=== PATIENT | male | born 1945 | race Caucasian/White ===

== ENCOUNTER 2019-03-29 10:43 | Inpatient (IN) | payer MEDICARE, OTHER ==
--- NOTE | 2019-03-29 10:50 | ED ---
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 The patient had a blood transfusion yesterday and states he went to the bathroom this morning with blood in his stool. The patient has myelodisplasia and they see Dr. Schwartz, hematology. The patient has had several blood transfusions in the last three weeks. The patient states he feels weak and lightheaded. He denies abdominal pain and nausea. His last colonoscopy was in September and they found hemorrhoids and a possible AVM. Medications reviewed. Allergies noted. - History of Current Complaint Stated Complaint: LOWER GI BLEED PER EMS Hx Obtained From: Patient Onset/Duration: Started Minutes Ago Associated Signs and Symptoms: Positive: Blood w/Stool - Allergy/Home Medications Allergies/Adverse Reactions: Allergies Allergy/AdvReac Type Severity Reaction Status Date / Time No Known Allergies Allergy Verified 02/08/15 09:50 PMH/Surg Hx/FS Hx/Imm Hx Endocrine/Hematology History: Reports: Hx Diabetes Cardiovascular History: Reports: Hx Coronary Artery Disease - 4 vessel CABG done 1999 [facility], Hx Hypercholesterolemia, Hx Hypertension, Hx Peripheral Vascular Disease - vascular stents, bypass bilateral lower legs Respiratory History: Reports: Hx Chronic Obstructive Pulmonary Disease (COPD) GI History: Reports: Hx Gastroesophageal Reflux Disease History: Reports: Other Problems/Disorders - Catcholamine secreting tumors pheochromocytoma Musculoskeletal History: Reports: Hx Back Problems Sensory History: Reports: Hx Contacts or Glasses, 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 Bypass Right leg 02/2014 [facility]. Back surgery 2011 [facility]. Balloon angioplasty bilateral legs 2000 [facility]. 4 vessel CABG 1999 [facility]. Removal cyst from back, [facility]. Pilonidal cystectomy [facility]. Shrapnel injury to heart in 1966 Hx Anesthesia Reactions: No - Family History Known Family History: Positive: Non-Contributory - Social History Alcohol Use: None Substance Use Type: Reports: None Smoking Status (MU): Light Every Day Tobacco Smoker Type: Cigarettes Amount Used/How Often: 1/2 ppd Length of Time of Smoking/Using Tobacco: 50 yrs Have You Smoked in the Last Year: Yes Review of Systems Positive: Other - Rectal Bleed. Negative: Abdominal Pain, Nausea Neurological: Other - Light-headedness Positive: Weakness All Other Systems Reviewed And Are Negative: Yes Physical Exam - Summary Physical Exam Summary: Constitutional: Well-developed, Well-nourished, Alert. (-) Distressed Skin: Warm, Dry. Pale skin. HENT: Normocephalic; Atraumatic Eyes: Conjunctiva normal Neck: Musculoskeletal ROM normal neck. (-) JVD, (-) Stridor, (-) Tracheal deviation Cardio: Rhythm regular, rate normal, Heart sounds normal; Intact distal pulses; The pedal pulses are 2+ and symmetric. Radial pulses are 2+ and symmetric. (-) Murmur Pulmonary/Chest wall: Effort normal. (-) Respiratory distress, (-) Wheezes, (-) Rales Abd: Soft, (-) tenderness, (-) Distension, (-) Guarding, (-) Rebound Musculoskeletal: (-) Edema Lymph: (-) Cervical adenopathy Neuro: Alert, Oriented x3. Ambulated well in the room. Psych: Mood and affect Normal Rectal: Melena. Triage Information Reviewed: Yes Vital Signs On Initial Exam: Temp Pulse Resp BP Pulse Ox 98.7 F 66 13 124/84 99 03/29/19 11:04 03/29/19 11:04 03/29/19 11:04 03/29/19 11:04 03/29/19 11:04 Vital Signs Reviewed: Yes Diagnostics - Laboratory Result Diagrams: 03/29/19 11:19 03/29/19 11:19 Lab Statement: Any lab studies that have been ordered have been reviewed, and results considered in the medical decision making process. - EKG 1111 Cardiac Rate: NL - 62 BPM EKG Rhythm: Sinus Rhythm Summary of EKG Findings: Widened QRS, LBBB, No ST segment changes. GIGU Course/Dx - Course Course Of Treatment: Patient is seizure with a GI bleed. Patient has had issues with GI bleeding off and on for the past couple of years. Patient had multiple colostomies and endoscopies which have showed an AVM and hemorrhoids per his . Patient sees Dr. Bernard for his myelodysplasia and received a blood transfer yesterday. Patient's hemoglobin was 8.9 5 days ago prior to his transfusion and is 8.4 today. Patient has melena on his rectal exam. Patient did not receive an infusion here but was admitted for further monitoring and workup even his quantity of melena and his concerning hemoglobin. - Diagnoses Provider Diagnoses: Lower GI bleed, Myelodysplasia (myelodysplastic syndrome), AVM (arteriovenous malformation), Anemia - Physician Notifications Discussed Care Of Patient With: Judson Bernard - GI Time Discussed With Above Provider: 11:34 - States likely not related to myelodisplasia, admit the patient. Instructed by Provider To: Admit As Inpatient Discharge ED - Sign-Out/Discharge Documenting (check all that apply): Patient Departure - Admission to Dr. Brown , Hospitalist Patient Received Moderate/Deep Sedation with Procedure: No - Discharge Plan Condition: Stable Disposition: ADMITTED TO [facility] Referrals: Cali Ochoa MD [Primary Care Provider] - - Billing Disposition and Condition Condition: STABLE Disposition: Admitted to [facility] - Attestation Statements Document Initiated by Kobe: Yes Documenting Laurenibe: Adan Harvey Provider For Whom Kobe is Documenting (Include Credential): David Schmidt MD Scribe Attestation: Adan Gould scribed for David Schmidt MD on 03/29/19 at 1228. Scribe Documentation Reviewed: Yes Provider Attestation: The documentation as recorded by the Adan ward accurately reflects the service I personally performed and the decisions made by me, David Schmidt MD Status of Scribe Document: Viewed
[2019-03-29 11:25] LABS: ABS Basophils 0.1 10^3/ul (0-0.2); ABS Eosinophils 0.2 10^3/ul (0-0.6); ABS Monocytes 0.2 10^3/ul (0-0.8); Hematocrit 25 % (42-52); Hemoglobin 8.4 g/dL (14.0-18.0); Lymphocyte % 10.9 %; Mean Corpuscular HGB Conc 34 g/dL (31-36); Mean Corpuscular Hemoglobin 31 pg (27-31); Mean Corpuscular Volume 93 fL (80-94); Mean Platelet Volume 7.6 fL (7.4-10.4); Platelet Count 205 10^3/uL (150-450); Red Blood Count 2.67 10^6 /uL (4.18-5.48); Red Cell Distribution Width 16 % (10-15); White Blood Count 9.6 10^3/uL (3.5-10.8)
[2019-03-29 11:42] LABS: Albumin 3.4 g/dL (3.2-5.2); Albumin/Globulin Ratio 1.7 (1-3); BUN/Creatinine Ratio 20.7 (8-20); Calcium 8.3 mg/dL (8.6-10.3); EGFR African American 62.7 (>60); EGFR Non-African American 51.8 (>60); Potassium 4.6 mmol/L (3.5-5.0); Total Bilirubin 0.2 mg/dL (0.2-1.0); Total Protein 5.4 g/dL (6.4-8.9)
[2019-03-29 11:44] LABS: Troponin I 0.01 ng/mL (<0.04)
[2019-03-29] MEDS ORDERED: Acetaminophen TAB* 325 MG PO PRN (12:55)
[2019-03-29] MEDS ORDERED: Dextrose 50% VIAL 50 ml IV PUSH PRN (13:00)
--- NOTE | 2019-03-29 16:26 | HP ---
CC: Dr. Ochoa; Dr. Bernard* HISTORY AND PHYSICAL: DATE OF ADMISSION: 03/29/19 PROVIDER: Una Heck NP. PRIMARY CARE PROVIDER: Dr. Ochoa. ATTENDING PHYSICIAN WHILE IN THE HOSPITAL: Dr. Eulalio Brown* (dictated by Una Heck NP). CHIEF COMPLAINT: Rectal bleeding. HISTORY OF PRESENT ILLNESS: Mr. Rosado is a 73-year-old male with a past medical history significant for coronary artery disease, OR, history of gastrointestinal bleeding since 2018, myelodysplastic syndrome, history of ischemic heart disease, angina, and anemia, who presented to the emergency room due to acute rectal bleeding. The patient reports that he is currently followed by Dr. Bernard for myelodysplastic syndrome and that he received a blood transfusion yesterday. He also reports that over the past 2 weeks he has had 2 blood transfusions. He had an iron infusion last and received erythropoietin on Sunday, which he reports he is now receiving twice monthly. The patient reports that he woke this morning and went to use the bathroom, he noted he had a bowel movement x2 with a large amount of dark red to medium red blood and the patient felt lightheaded and dizzy. Due to these symptoms, he presented to the emergency room for further evaluation. While in the emergency room, the patient had routine lab work drawn. He had a rectal exam, in which stool occult was positive for blood. His H and H on arrival was 8.4 and 25. Given his acute bleeding and low H and H, Hospital Medicine was asked to see him in consult for admission. Of note, the patient does report that he had a major GI bleed on 03/04/18. At that time, he was treated [facility]. Due to the anemia at that time had an OR. He recently had a coloscopy in september of this year which showed AVM's and hemorrhoids, no acute bleeding at that time. PAST MEDICAL HISTORY: 1. History of coronary artery disease. 2. History of OR in 2018. 3. History of GI bleed with AVMs. 4. Myelodysplastic Syndrome. 5. Ischemic heart disease. 6. Angina. 7. Diabetes. 8. Anemia. PAST SURGICAL HISTORY: 1. Tailbone cyst removed. 2. Cardiac catheterization in 1998 and 1999. 3. L4-L5 laminectomy. 4. Bypass of the left leg. 5. Stent in the right leg. 6. Shoulder surgery. 7. Open heart surgery. HOME MEDICATIONS: Include: 1. Lantus 20 units at h.s. 2. NovoLog 8 units with meals. 3. MiraLAX 1 to 2 caps p.o. daily. 4. Simethicone 80 mg p.o. daily as needed. 5. Carvedilol 12.5 mg half a tab twice daily. 6. Losartan 50 mg p.o. daily. 7. Aspirin 81 mg p.o. daily. 8. Vitamin D 1000 units p.o. daily. 9. Vitamin B 500 mcg p.o. daily. 10. Isosorbide mononitrate 120 mg p.o. q.p.m. 11. Sertraline 150 mg at h.s. 12. Topiramate 150 mg at h.s. 13. Folic acid 1 mg p.o. daily. 14. Colace/senna 1 tab p.o. daily. 15. Oxycodone 5 mg p.o. q.4 hours as needed. 16. Rabeprazole 20 mg p.o. b.i.d. 17. Nitroglycerin 0.4 sublingual q.5 minutes. 18. Zantac 300 mg as needed. ALLERGIES: NICOTINE PATCH, GEMFIBROZIL, METFORMIN, WELLBUTRIN, ELROY INHIBITORS, ATORVASTATIN, BUPROPION, FAMILY HISTORY: Father with a history of CHF. Brother with diabetes. Brother with lung cancer. Mother with gallbladder cancer. Sister with breast cancer x2 sisters and one with colon cancer. SOCIAL HISTORY: The patient smokes a half a pack per day. Denies any alcohol or illicit drug use. He is . His surrogate decision maker in the event he is unable to make his own decisions is his . He is a full code. REVIEW OF SYSTEMS: He denies any fever or untended weight loss. Denies any chest pain or edema. No hemoptysis or shortness of breath. No cough. He does report lightheaded and feeling dizzy. Denies any nausea or vomiting. He does report diarrhea with dark red blood with bowel movements. Denies any abdominal pain currently. He does report that he has occasional upper abdominal pain with eating. Denies any gross hematuria or dysuria. Denies any focal weakness or sensory loss. No visual complaints, dysphagia, arthralgias, myalgias, rashes , lesions, or open sores. Denies any psychosis or anxiety. PHYSICAL EXAMINATION GENERAL: At this time, Mr. Rosado is a 73-year-old male. He is alert and oriented. He is pale. Resting on the stretcher in the emergency room. He is in no acute distress. VITAL SIGNS: Blood pressure 128/78, heart rate 74, respirations 14, O2 saturation 99%, temperature is 98.7. HEENT: Head is atraumatic, normocephalic. Eyes: EOMs are intact. Sclerae anicteric and not pale. Oral mucosa appeared to be moist. NECK: Supple. LUNGS: Clear to auscultation bilaterally. No wheezes, rales, or rhonchi. CARDIAC: S1, S2. Regular rate and rhythm. No murmurs, rubs, or gallops. ABDOMEN: Soft and nontender. Bowel sounds are present x4. EXTREMITIES: He is able to move all 4 extremities with 5/5 strength. NEUROLOGIC: He is awake, alert, and oriented x3. Speech is clear. Thought process is intact. There is no gross focal deficits. SKIN: Pale, warm, dry. There are no open rashes or lesions. DIAGNOSTIC STUDIES/LAB DATA: WBCs are 9.6, RBCs 2.67, hemoglobin 8.4, hematocrit is 25, platelet count is 205. Sodium 136, potassium 4.6, chloride 111, carbon dioxide is 21, anion gap is 4, BUN is 28, creatinine 1.35, glucose is 200, calcium 8.3. AST 9, ALT 6, alkaline phosphatase 59. Troponin is 0.01 x2. He had an electrocardiogram, which showed sinus rhythm at a rate of 62. He does have flat T-waves in V3, V4, V5, and V6. He does have some peaked Ts in V1 and V2 with T-wave inversion in lead III. No comparison EKGs are available. I have requested records from the [facility] in [place] for prior EKG for comparison. ASSESSMENT AND PLAN: Mr. Rosado is a 73-year-old male with a past medical history significant for coronary artery disease, myocardial infarction, status post open heart surgery, gastrointestinal bleed, mild dysplasia, history of angina and anemia, who presented to the emergency room with rectal bleeding. He will be admitted inpatient for: 1. Lower gastrointestinal bleeding. The patient does have reported dark red blood from the rectum. He did receive 1 unit of packed red blood cells yesterday as an outpatient. At that point, his H and H was 8.9. Today, his hemoglobin and hematocrit are 8.4 and 25. Type and screen. I will hang normal saline at 75 cc per hour. We will repeat H and H q.6 hours. I have consulted Dr. Perez from GI who will see the patient in consultation. I will hold aspirin at this time. Will give blood transfusion for Hgb below 8 given the patients cardiac history. Per the Dr. Key would hgb close to 9 given his history of OR's. Will repeat hemoglobin and hematocrit every 6 hours. 2. Diabetes. He will be placed on fingersticks a.c. and h.s. The patient is n.p.o. at this time. I will place him on a lispro sliding scale. I am going to hold his Lantus at this time as the patient does have n.p.o. status. 3. History of coronary artery disease. I will continue the patient on carvedilol 12.5 half a tablet b.i.d. I am going to hold his losartan due to acute gastrointestinal bleeding and concern for hypotension. Will obtain EKG for comparison from the [facility], as the patient does have T wave depression noted in the v leads and lead I and III with a history of OR x 3 in the past. Troponin are negative at this time. If the EKG does show changes I suspect this are related to demand ischemia from anemia, as the patient is chest pain free and troponins are negative. Should the patient develop chest pain or further EKG changes he would not be a candidate for aspirin d/t acute GI bleeding and would not be a candidate at this time for plavix d/t Lower GI bleeding. 4. History of acid reflux. I will continue on pantoprazole as previously prescribed. 5. Myelodysplastic Syndrome. Patient is follow by Dr. Key from hematology would recommend consult to hematology. ER did discuss this case with Dr. Key who did not feel this was related to his myelodysplasia. 6. Chronic Kidney disease. Patient does have elevated BUN /Creatinine that appear to be a baseline. 7. FEN: He will be n.p.o. 8. Code status: He is a full code. 9. DVT prophylaxis: He will be placed on SCDs as chemical DVT prophylaxis contraindicated at this time as the patient does have acute lower gastrointestinal bleed. TIME SPENT: Time spent on this admission was 60 minutes, greater than half that time was spent at the bedside reviewing events leading thus far to his hospitalization, performing physical exam, and reviewing my plan of care. I have discussed this with my attending Dr. Eulalio Brown; he is in agreement with my plan. UNA HECK, BOILERMAKER FITTER [id number]/[facility] #: [id number] Subsequent EKGs show further ischemic changes - the patient did have 1 episode of abdominal pain for which he reports that he takes nitroglycerin for at home, He took 1 NTG and pain was relieved. I did repeat an EKG which showed further changes in lead I.III and V1-4 and repeat troponin of 0.03 mild increase from 0.01 but still within normal limits. Patient was chest pain free at 2030 when evaluated. The patient H/H has dropped to 7.6/23 So I suspect that the EKG changes can be related to demand ischemia. We will transfuse 2 units of PRBC's. Would recommend consult to cardiology if patient develops further episodes of chest pain. KAREN
[2019-03-29] MEDS ORDERED: Nitroglycerin TAB 0.4 MG* 0.4 MG TAB SL PRN (17:06)
[2019-03-29] MEDS: Insulin LISPRO* 1 UNITS UNIT SUBCUT SCH (17:20)
[2019-03-29] MEDS: Isosorbide Mononitrate ER TAB* 60 MG PO SCH (17:24)
[2019-03-29 18:01] LABS: Hematocrit 23 % (42-52); Hemoglobin 7.6 g/dL (14.0-18.0)
[2019-03-29] MEDS: NS 0.9% 1000 ML** 1,000 ML IV SCH (18:18)
[2019-03-29] MEDS: Topiramate TAB(*) 25 MG PO SCH (21:49)
[2019-03-29] MEDS: Topiramate TAB(*) 100 MG PO SCH (21:49)
[2019-03-29] MEDS: Carvedilol TAB* 6.25 MG PO SCH (21:49)
[2019-03-30 06:48] LABS: Hematocrit 27 % (42-52); Hemoglobin 9.6 g/dL (14.0-18.0)
[2019-03-30] MEDS: Insulin LISPRO* 1 UNITS UNIT SUBCUT SCH ×3 (07:43→17:27)
--- NOTE | 2019-03-30 09:33 | PN ---
Subjective Date of Service: 03/30/19 Interval History: Pt states he is feeling well today. He notes he had BRBPR x2 yesterday a.m. and has had no bleeding or BM since then. He denies melena, abd pain, n/v/. Denies CP, SOB, diaphoresis. He denies dizziness, lightheadedness. He has h/o GI bleeding for the last 1 year. He states he has had approximately 5 colonoscopies since onset of bleeding. He notes last colonoscopy was in October 2018. Objective Active Medications: Acetaminophen (Tylenol Tab*) 650 mg PO Q4H PRN Carvedilol (Coreg Tab*) 12.5 mg PO BID JEANMARIE Dextrose (Dextrose 50% Vial 50 Ml*) 25 ml IV PUSH .FOR FS < 60 - SS PRN Sodium Chloride (Ns 0.9% 1000 Ml) 1,000 mls @ 75 mls/hr IV PER RATE JEANMARIE Insulin Human Lispro (Humalog*) 0 units SUBCUT AC JEANMARIE; Protocol Isosorbide Mononitrate (Imdur Er Tab*) 120 mg PO QPM JEANMARIE Nitroglycerin (Nitroglycerin Tab 0.4 Mg*) 0.4 mg SL Q5M PRN Oxycodone HCl (Roxycodone Tab*) 5 mg PO Q4H PRN Topiramate (Topamax(*)) 100 mg PO BEDTIME JEANMARIE Topiramate (Topamax(*)) 50 mg PO BEDTIME JEANMARIE Vital Signs: Temp Pulse Resp BP Pulse Ox 98.1 F 70 20 156/67 100 03/30/19 03:00 03/30/19 03:00 03/30/19 03:00 03/30/19 03:00 03/30/19 03:00 Oxygen Devices in Use Now: None Appearance: Pt is sitting up in bed. He is in no acute distress, appears well. Cooperative, appropriate Eyes: No Scleral Icterus, PERRLA Ears/Nose/Mouth/Throat: NL Teeth, Lips, Gums, Clear Oropharnyx, Mucous Membranes Moist Neck: NL Appearance and Movements; NL JVP, Trachea Midline Respiratory: Symmetrical Chest Expansion and Respiratory Effort, Clear to Auscultation Cardiovascular: NL Sounds; No Murmurs; No JVD, RRR, No Edema Abdominal: NL Sounds; No Tenderness; No Distention, No Hepatosplenomegaly Extremities: No Edema, No Clubbing, Cyanosis Neurological: Alert and Oriented x 3 Result Diagrams: 03/30/19 06:00 03/30/19 09:45 Microbiology and Other Data: Microbiology 03/29/19 11:25 Stool Occult Blood (IMTIAZ) - Final Stool Assess/Plan/Problems-Billing Assessment: 73yom PMHx CAD, GIB with AVM, myelodysplasia, diabetes, ischemic heart disease, anemia presents with lower GI bleed, EKG changes. - Patient Problems (1) Lower GI bleed Comment: -BRBPR x2 yesterday, no BM since. Has 1 year h/o GIB with multiple colonoscopies. -Records obtained: last colonoscopy October 2017 revealed AVM, hemorrhoids -2U PRBC given; hgb 9.6 currently -GI consulted; thank you for recommendations -Will continue with conservative treatment and monitor for need for transfusion -Continue H/H q6h (2) Acute electrocardiogram changes Comment: -Pt denies CP; troponins negative x3, but slight increase with 3rd trop -ST changes in V2-V6; T inversion in III, aVF compared to initial ER EKG -Suspect that this may be related to demand -Repeat EKG is improved, resembles initial EKG. No other comparisons available. -Repeat troponin WNL (3) YESSENIA (acute kidney injury) Comment: -Resolved -Cr WNL today -It is likely that this was due to decreased kidney perfusion in light of anemia -Will continue to monitor (4) Diabetes mellitus Comment: -Consistent carb -Will add Glargine 15U bedtime (home dose 20U bedtime) -Continue lispro ss, FS ACHS (5) CAD (coronary artery disease) Comment: -Continue carvedilol -Holding losartan, aspirin (6) GERD (gastroesophageal reflux disease) Comment: -Pantoprazole 40 daily (7) Myelodysplasia (myelodysplastic syndrome) Comment: -ER discussed case with Dr. Bernard, who didn't feel this related to myelodysplase -Outpatient plan is weekly CBC, Fe and transfuse as necessary for hgb<9, low iron -Continue supportive care (8) DVT prophylaxis Comment: -Hold in light of GIB -SCDs (9) Full code status Status and Disposition: Inpatient. Discharge when stable.
--- NOTE | 2019-03-30 09:44 | CONS ---
CC: Dr. Ochoa at the [facility]* CONSULTATION REPORT: DATE OF CONSULT: 03/30/19 REQUESTING PROVIDER: Una Heck NP INDICATION: Rectal bleeding. NARRATIVE: Mr. Rosado is a very pleasant 73-year-old gentleman, well known to myself; I take care of both his and his son. He has a history of coronary artery disease, remote history of an AL, myelodysplastic syndrome, history of GI bleeding beginning in 2018 who states that yesterday morning he awoke and had a bowel movement, it was very dark red-maroon in color. He denied any abdominal pain, no nausea, no vomiting. No fever, chills, or cramps. He states that he has seen blood in the past, more often than not it is bright red, sometimes it is darker. He does have a history of myelodysplastic syndrome, thus he is receiving blood transfusions and iron infusions. He has also been getting erythropoietin. He again denies any current dizziness, but he states that he did feel a little dizzy yesterday after his bowel movement. He then presented to the emergency room. Over the past 24 hours, he has not had any further bowel movements and no pain over the past 24 hours. Of note, by report, he did have a colonoscopy in September of this year, at which time an AVM was noted. He has also had multiple colonoscopies prior to that. There are records showing at least 2 colonoscopies in 2017 with multiple polypectomies. Currently, he is feeling well, he is hungry, denies any pain and again no bowel movements in 24 hours. PAST MEDICAL HISTORY: Significant for coronary artery disease, AL, history of anemia, ischemic heart disease, myelodysplastic syndrome, diabetes. PAST SURGICAL HISTORY: Surgeries include coronary bypass surgery, laminectomy. MEDICATIONS: At home include: 1. Nitroglycerin. 2. Zantac. 3. Aciphex. 4. Oxycodone. 5. Sertraline. 6. Aspirin 81 mg. 7. Carvedilol. 8. Simethicone. 9. Insulin plus Lantus and NovoLog. ALLERGIES: To WELLBUTRIN, METFORMIN, ELROY INHIBITORS, ATORVASTATIN. FAMILY HISTORY: Diabetes, coronary artery disease, lung cancer, gallbladder cancer, breast cancer, colon cancer. SOCIAL HISTORY: He continues to smoke tobacco, I counseled him against this. No alcohol. No IV drug use. REVIEW OF SYSTEMS: Other than that mentioned in the HPI, the 12 systems were reviewed and were negative. PHYSICAL EXAMINATION: Temperature is 98.1, blood pressure is 136/67, pulse is 70, respiratory rate of 20, O2 sat is 100% on room air. General: Well- appearing male; lying flat in bed. Alert, oriented, pleasant; fluent. HEENT: Mucous membranes are moist without lesions, ulcers, or exudate. Neck is supple. Trachea is midline. Head is normocephalic, atraumatic. Heart: Regular rate and rhythm. No murmurs, rubs, or gallops. Lungs: Clear to auscultation bilaterally. No wheezes, rales, or rhonchi. Abdomen: Mildly obese. Positive bowel sounds. Soft, nontender, nondistended. No hepatosplenomegaly, masses, rebound, or guarding. Skin is warm and dry. DIAGNOSTIC STUDIES/LAB DATA: Of note, white count is 9.6; hemoglobin initially was 8.4, fell to 7.6, now it is up to 9.6 after 2 units of blood; platelet count of 205. BUN is 28, creatinine is 1.35. AST and ALT are both low at 9 and 6. Troponin is 0.03. Albumin is 3.4. ASSESSMENT AND PLAN: This is a very pleasant 73-year-old gentleman with a history of myelodysplastic syndrome and colonic arteriovenous malformations, who presents with lower gastrointestinal bleed. He has received blood overnight. At this point, things seem to be stable, he has not had a bowel movement in 24 hours, which usually means or can sometimes mean the bleeding has stopped. At this point, he is stable. Most likely, the bleeding is coming from the colonic arteriovenous malformations. I would recommend we [facility] and [facility] If he does not continue with any bleeding , I do not think we need to perform a colonoscopy at this point. As long as his hemoglobin remained stable and he does not pass any further blood, I think we could probably hold off on a colonoscopy as his last one was just in September and he has had multiple colonoscopies prior to that. This does not appear to be an upper gastrointestinal bleed at this point. I would recommend we feed him and we will continue to follow along. [id number]/[facility] #: [id number] [facility]
[2019-03-30] MEDS: Carvedilol TAB* 6.25 MG PO SCH ×2 (09:48→19:55)
[2019-03-30 10:09] LABS: INR 1.01 (0.82-1.09)
[2019-03-30 10:17] LABS: Calcium 8.1 mg/dL (8.6-10.3); Potassium 3.8 mmol/L (3.5-5.0)
[2019-03-30 10:23] LABS: BUN/Creatinine Ratio 25.7 (8-20); EGFR African American 83.8 (>60); EGFR Non-African American 69.2 (>60)
[2019-03-30] MEDS: Pantoprazole TAB * 40 MG TAB PO SCH (12:14)
[2019-03-30] MEDS: Isosorbide Mononitrate ER TAB* 60 MG PO SCH (17:27)
[2019-03-30] MEDS: NS 0.9% 1000 ML** 1,000 ML IV SCH (19:51)
[2019-03-30] MEDS: Topiramate TAB(*) 100 MG PO SCH (19:55)
[2019-03-30] MEDS: Topiramate TAB(*) 25 MG PO SCH (19:55)
[2019-03-30] MEDS: Insulin GLARGINE(*) 1 UNITS UNIT SUBCUT SCH (20:10)
[2019-03-30] MEDS: oxyCODONE TAB* 5 MG TAB PO PRN (20:20)
[2019-03-30 20:55] LABS: Hematocrit 27 % (42-52); Hemoglobin 9.2 g/dL (14.0-18.0)
[2019-03-30 22:26] LABS: ABS Basophils 0.1 10^3/ul (0-0.2); ABS Eosinophils 0.3 10^3/ul (0-0.6); ABS Lymphocytes 1.3 10^3/ul (1.0-4.8); ABS Monocytes 0.4 10^3/ul (0-0.8); ABS Neutrophils 4.5 10^3/ul (1.5-7.7); Lymphocyte % 19.4 %; Mean Corpuscular HGB Conc 34 g/dL (31-36); Mean Corpuscular Hemoglobin 30 pg (27-31); Mean Corpuscular Volume 89 fL (80-94); Mean Platelet Volume 8.2 fL (7.4-10.4); Nucleated Red Blood Cells % 0.1; Platelet Count 164 10^3/uL (150-450); Red Blood Count 3.04 10^6 /uL (4.18-5.48); Red Cell Distribution Width 16 % (10-15); White Blood Count 6.5 10^3/uL (3.5-10.8)
[2019-03-31 01:08] LABS: Hematocrit 25 % (42-52); Hemoglobin 8.6 g/dL (14.0-18.0)
[2019-03-31 05:59] LABS: Hematocrit 25 % (42-52); Hemoglobin 8.3 g/dL (14.0-18.0)
[2019-03-31] MEDS: Insulin LISPRO* 1 UNITS UNIT SUBCUT SCH ×3 (07:22→17:03)
[2019-03-31] MEDS: Carvedilol TAB* 6.25 MG PO SCH ×2 (09:09→19:47)
[2019-03-31] MEDS: oxyCODONE TAB* 5 MG TAB PO PRN ×2 (09:09→22:00)
[2019-03-31] MEDS: Pantoprazole TAB * 40 MG TAB PO SCH (09:09)
[2019-03-31] MEDS: NS 0.9% 1000 ML** 1,000 ML IV SCH ×2 (09:42→23:24)
[2019-03-31 12:18] LABS: Hematocrit 26 % (42-52); Hemoglobin 8.9 g/dL (14.0-18.0)
--- NOTE | 2019-03-31 14:02 | PN ---
Subjective Date of Service: 03/31/19 Interval History: Patient seen and examined. No acute overnight events. Patient denies chest pain , no abdominal pain, no SOB or palpitations. No bloody BMs since day of admission, but he states he does feel like he needs to have a BM this morning. No fevers or chills. No further complaints. Objective Active Medications: Acetaminophen (Tylenol Tab*) 650 mg PO Q4H PRN PRN Reason: MILD PAIN or TEMP > 100.4 Carvedilol (Coreg Tab*) 12.5 mg PO BID [facility] Last Admin: 03/31/19 09:09 Dose: 12.5 mg Dextrose (Dextrose 50% Vial 50 Ml*) 25 ml IV PUSH .FOR FS < 60 - SS PRN PRN Reason: FS < 60 Sodium Chloride (Ns 0.9% 1000 Ml) 1,000 mls @ 75 mls/hr IV PER RATE [facility] Last Admin: 03/31/19 09:42 Dose: 75 mls/hr Insulin Glargine (Lantus(*)) 15 units SUBCUT Q24H [facility] Last Admin: 03/30/19 20:10 Dose: 15 unit Insulin Human Lispro (Humalog*) 0 units SUBCUT AC [facility]; Protocol Last Admin: 03/31/19 12:31 Dose: Not Given Isosorbide Mononitrate (Imdur Er Tab*) 120 mg PO QPM [facility] Last Admin: 03/30/19 17:27 Dose: 120 mg Nitroglycerin (Nitroglycerin Tab 0.4 Mg*) 0.4 mg SL Q5M PRN PRN Reason: epigastric/ chest pain Last Admin: 03/29/19 17:25 Dose: 0.4 mg Oxycodone HCl (Roxycodone Tab*) 5 mg PO Q4H PRN PRN Reason: PAIN Last Admin: 03/31/19 09:09 Dose: 5 mg Pantoprazole Sodium (Protonix Tab*) 40 mg PO DAILY [facility] Last Admin: 03/31/19 09:09 Dose: 40 mg Topiramate (Topamax(*)) 100 mg PO BEDTIME [facility] Last Admin: 03/30/19 19:55 Dose: 100 mg Topiramate (Topamax(*)) 50 mg PO BEDTIME [facility] Last Admin: 03/30/19 19:55 Dose: 50 mg Vital Signs - 8 hr 03/31/19 03/31/19 03/31/19 07:33 08:00 09:09 Temperature 97.8 F Pulse Rate 50 Respiratory 16 16 18 Rate Blood Pressure 141/53 (mmHg) O2 Sat by Pulse 100 Oximetry 03/31/19 03/31/19 11:09 11:34 Temperature 99.8 F Pulse Rate 52 Respiratory 18 18 Rate Blood Pressure 158/60 (mmHg) O2 Sat by Pulse 100 Oximetry Oxygen Devices in Use Now: None Appearance: alert, NAD Eyes: No Scleral Icterus, PERRLA Ears/Nose/Mouth/Throat: NL Teeth, Lips, Gums, Mucous Membranes Moist Neck: NL Appearance and Movements; NL JVP, Trachea Midline Respiratory: Symmetrical Chest Expansion and Respiratory Effort, Clear to Auscultation Cardiovascular: NL Sounds; No Murmurs; No JVD, RRR, No Edema Abdominal: NL Sounds; No Tenderness; No Distention, No Hepatosplenomegaly Extremities: No Edema, No Clubbing, Cyanosis Skin: No Rash or Ulcers Neurological: Alert and Oriented x 3 Nutrition: Taking PO's Result Diagrams: 03/31/19 12:03 03/30/19 09:45 Microbiology and Other Data: Microbiology 03/29/19 11:25 Stool Occult Blood (IMTIAZ) - Final Stool Assess/Plan/Problems-Billing Assessment: 73yom PMHx CAD, GIB with AVM, myelodysplasia, diabetes, ischemic heart disease, anemia presents with lower GI bleed, EKG changes. - Patient Problems (1) Lower GI bleed Current Visit: Yes Status: Acute Code(s): K92.2 - GASTROINTESTINAL HEMORRHAGE, UNSPECIFIED SNOMED Code(s): 26058654 Comment: - BRBPR x2 yesterday, no BM since. Has 1 year h/o GIB with multiple colonoscopies. - Records obtained: last colonoscopy October 2017 revealed AVM, likely source - 2U PRBC given; H&H stable since yesterday - GI consult appreciated, no indication for immediate colonoscopy, continue to monitor for further bloody BMs and H&H which are both stable - Goal HgB>9 per heme-onc given myelodysplastic syndrome, currently 8.9, may need additioal unit of packed cells, will re-eval at next lab draw (2) YESSENIA (acute kidney injury) Current Visit: Yes Code(s): N17.9 - ACUTE KIDNEY FAILURE, UNSPECIFIED SNOMED Code(s): 95587155 Comment: - Resolved, likely 2/2 decreased renal perfusion in light of acute blood loss anemia (3) Acute electrocardiogram changes Code(s): R94.31 - ABNORMAL ELECTROCARDIOGRAM [ECG] [EKG] SNOMED Code(s): 247004924 Comment: - Pt denies CP; troponins negative x3, but slight increase with 3rd trop; patient remains asymptomatic with no anginal equvalents - ST changes in V2-V6; T inversion in III, aVF compared to initial ER EKG - Suspect that this may be related to demand 2/2 acute blood loss - Repeat EKG is improved, resembles initial EKG. No other comparisons available. - Repeat troponin WNL (4) CAD (coronary artery disease) Code(s): I25.10 - ATHSCL HEART DISEASE OF [place] CORONARY ARTERY W/O ANG PCTRS SNOMED Code(s): 65288305 Comment: - Continue carvedilol - Holding losartan, aspirin (5) Diabetes mellitus Code(s): E11.9 - TYPE 2 DIABETES MELLITUS WITHOUT COMPLICATIONS SNOMED Code(s) : 74920772 Comment: - Consistent carb - Will add Glargine 15U bedtime (home dose 20U bedtime) - Continue lispro ss, FS ACHS (6) GERD (gastroesophageal reflux disease) Code(s): K21.9 - GASTRO-ESOPHAGEAL REFLUX DISEASE WITHOUT ESOPHAGITIS SNOMED Code(s): 893810987 Comment: - Pantoprazole 40 daily (7) Myelodysplasia (myelodysplastic syndrome) Code(s): D46.9 - MYELODYSPLASTIC SYNDROME, UNSPECIFIED SNOMED Code(s): 057846090 Comment: - Outpatient plan is weekly CBC, Fe and transfuse as necessary for hgb<9, low iron - Continue supportive care (8) DVT prophylaxis Code(s): Z29.9 - ENCOUNTER FOR PROPHYLACTIC MEASURES, UNSPECIFIED SNOMED Code( s): 169460196 Comment: - SCDs only, high risk in presence of GIB (9) Full code status Code(s): Z78.9 - OTHER SPECIFIED HEALTH STATUS SNOMED Code(s): 209784464 Status and Disposition: Inpatient. Discharge when stable.
--- NOTE | 2019-03-31 15:38 | PN ---
Progress Note - Progress Note Date of Service: 03/31/19 Note: pt seen, examined and 45 d/w ; feels weak, otherwise fine, no bm x 48hrs, no abd pain, no bleeding, s/p 2U on Sunday VS; 99.8, 158/60, 52, 18, 100% nad, alert, pale +bs, obese, soft Hgb8.9,<-----8.3,8.6,9.2 kirk AVMs with rectal bleeding; bleeding seems to have stopped (no bm x 48hrs); continue to monitor bms, hgb; if stable, ?dc in am >45 spend talking with Prosper Perez MD [facility]
[2019-03-31] MEDS: Isosorbide Mononitrate ER TAB* 60 MG PO SCH (17:16)
[2019-03-31] MEDS: Topiramate TAB(*) 25 MG PO SCH (19:49)
[2019-03-31] MEDS: Topiramate TAB(*) 100 MG PO SCH (19:50)
[2019-03-31] MEDS: Insulin GLARGINE(*) 1 UNITS UNIT SUBCUT SCH (21:20)
[2019-03-31] MEDS: Docusate CAP* 100 MG PO SCH (21:20)
[2019-03-31] MEDS: Senna TAB 8.6 mg* TAB PO SCH (21:20)
[2019-04-01] MEDS: oxyCODONE TAB* 5 MG TAB PO PRN (03:28)
[2019-04-01] MEDS: Insulin LISPRO* 1 UNITS UNIT SUBCUT SCH ×2 (08:53→12:43)
[2019-04-01] MEDS: Pantoprazole TAB * 40 MG TAB PO SCH (08:59)
[2019-04-01] MEDS: Docusate CAP* 100 MG PO SCH (08:59)
[2019-04-01] MEDS: Senna TAB 8.6 mg* TAB PO SCH (08:59)
[2019-04-01] MEDS: Carvedilol TAB* 6.25 MG PO SCH (09:24)
--- NOTE | 2019-04-01 09:36 | PN ---
Subjective Date of Service: 04/01/19 Interval History: Mr. Rosado reports that he is feeling ok. He denies lightheadedness, chest pain, SOB, nausea, or abdominal pain. He has not had a bowel movement for 2 days, no blood per rectum. He is eager for discharge today if possible. Objective Active Medications: Acetaminophen (Tylenol Tab*) 650 mg PO Q4H PRN Carvedilol (Coreg Tab*) 12.5 mg PO BID [facility] Dextrose (Dextrose 50% Vial 50 Ml*) 25 ml IV PUSH .FOR FS < 60 - SS PRN Docusate Sodium (Colace Cap*) 100 mg PO DAILY [facility] Sodium Chloride (Ns 0.9% 1000 Ml) 1,000 mls @ 75 mls/hr IV PER RATE [facility] Insulin Glargine (Lantus(*)) 15 units SUBCUT Q24H [facility] Insulin Human Lispro (Humalog*) 0 units SUBCUT AC [facility]; Protocol Isosorbide Mononitrate (Imdur Er Tab*) 120 mg PO QPM [facility] Nitroglycerin (Nitroglycerin Tab 0.4 Mg*) 0.4 mg SL Q5M PRN Oxycodone HCl (Roxycodone Tab*) 5 mg PO Q4H PRN Pantoprazole Sodium (Protonix Tab*) 40 mg PO DAILY [facility] Senna (Senokot 8.6 Mg Tab*) 1 tab PO DAILY [facility] Topiramate (Topamax(*)) 100 mg PO BEDTIME [facility] Topiramate (Topamax(*)) 50 mg PO BEDTIME [facility] Vital Signs: Temp Pulse Resp BP Pulse Ox 97.7 F 65 16 148/65 100 04/01/19 07:15 04/01/19 07:15 04/01/19 08:00 04/01/19 07:15 04/01/19 07:15 Oxygen Devices in Use Now: None Appearance: Male lying in bed in NAD Eyes: No Scleral Icterus Ears/Nose/Mouth/Throat: Mucous Membranes Moist Respiratory: Symmetrical Chest Expansion and Respiratory Effort, Clear to Auscultation Cardiovascular: NL Sounds; No Murmurs; No JVD, No Edema Abdominal: NL Sounds; No Tenderness; No Distention Extremities: No Edema Skin: No Rash or Ulcers Neurological: Alert and Oriented x 3, NL Muscle Strength and Tone Nutrition: Taking PO's - Nutrition: Malnutrition Diagnosis/Plan Malnutrition Assessment by Registered Dietitian: Male lying in bed in NAD Result Diagrams: 04/01/19 10:34 03/30/19 09:45 Microbiology and Other Data: . Assess/Plan/Problems-Billing Assessment: Ms. Rosado 73yo male with PMHx CAD, GIB with AVM, myelodysplasia, diabetes, ischemic heart disease, anemia presents with lower GI bleed, EKG changes. - Patient Problems (1) Lower GI bleed Comment: - Acute on chronic anemia with Hgb down to 8.8, has had 2 units PRBC since admission. Given concomitant mymyelodysplastic syndrome, ischemic heart disease and hematology goal of Hgb ~ 9, plan for one unit PRBC prior to discharge. - Has 1 year h/o GIB with multiple colonoscopies. Records obtained: last colonoscopy October 2017 revealed AVM, likely source - GI consult appreciated, no indication for immediate colonoscopy, continue to monitor for further bloody BMs and H&H which are both stable (2) YESSENIA (acute kidney injury) Comment: - Resolved, likely 2/2 decreased renal perfusion in light of acute blood loss anemia (3) Acute electrocardiogram changes Comment: - Pt denies CP; troponins negative x3, but slight increase with 3rd trop; patient remains asymptomatic with no anginal equvalents - ST changes in V2-V6; T inversion in III, aVF compared to initial ER EKG - Suspect that this is related to demand 2/2 acute blood loss - Repeat EKG is improved, resembles initial EKG. No other comparisons available. - Repeat troponin WNL (4) CAD (coronary artery disease) Comment: - Continue carvedilol - Resume losartan at discharge, hold aspirin until follow up with hematology ( ) (5) Diabetes mellitus Comment: - Consistent carb - Resume home dose 20U bedtime (6) GERD (gastroesophageal reflux disease) Comment: - Pantoprazole 40 daily (7) Myelodysplasia (myelodysplastic syndrome) Comment: - Outpatient plan is weekly CBC, Fe and transfuse as necessary for hgb<9, low iron - Continue supportive care (8) DVT prophylaxis Comment: - SCDs only, high risk in presence of GIB (9) Full code status Comment: Status and Disposition: Inpatient. Discharge to home.
[2019-04-01 10:51] LABS: Hematocrit 26 % (42-52); Hemoglobin 8.8 g/dL (14.0-18.0)
--- NOTE | 2019-04-01 12:35 | DS ---
CC: Dr. Ochoa; Dr. Bernard* [facility] MEDICINE DISCHARGE SUMMARY: DATE OF ADMISSION: 03/29/19 DATE OF DISCHARGE: 04/01/19 PRIMARY CARE PHYSICIAN: Dr. Ochoa. ONCOLOGIST: Dr. Bernard. ATTENDING PHYSICIAN: Dr. Adan Aviles* (dictation provided by Dr. Sharee Spencer , ROCHELLE). PRIMARY DIAGNOSES: 1. Lower gastrointestinal bleed. 2. Acute on chronic anemia with acute blood loss secondary to gastrointestinal bleeding in setting of myelodysplastic syndrome. SECONDARY DIAGNOSES: 1. History of coronary artery disease. 2. History of myocardial infarction in 2018. 3. History of gastrointestinal bleed with arteriovenous malformation. 4. Myelodysplasia. 5. Ischemic heart disease. 6. Angina. 7. Diabetes. 8. Anemia. SURGICAL HISTORY: 1. Tail bone cyst removed. 2. Cardiac catheterization in 1998 and 1999. 3. L4-L5 laminectomy. 4. Bypass to the left leg. 5. Stent in the right leg. 6. Shoulder surgery. 7. Open heart surgery. MEDICATIONS AT THE TIME OF DISCHARGE: 1. Nitroglycerin 0.4 mg sublingually q.5 minutes p.r.n. 2. Rabeprazole 20 mg p.o. b.i.d. 3. Isosorbide mononitrate 120 mg p.o. q.p.m. 4. Topiramate 150 mg p.o. at bedtime. 5. Carvedilol 6.25 mg twice daily. 6. Sennoside-docusate 1 tab p.o. daily. 7. Folic acid 1 mg p.o. daily. 8. Cyanocobalamin 1 tab p.o. daily. 9. Cholecalciferol 1 tablet as needed p.o. daily. 10. Multivitamin with mineral 1 tab p.o. daily. 11. NovoLog insulin 10 units subcutaneously t.i.d. 12. Lantus insulin 20 units at bedtime. 13. Oxycodone 5 mg p.o. q.4 hours p.r.n. 14. Simethicone 80 mg p.o. daily as needed. 15. Losartan 50 mg p.o. daily. 16. Hold aspirin. 17. MiraLax 1 to 2 caps p.o. daily. HOSPITAL COURSE: Mr. Rosado is a 73-year-old male with a past medical history of myelodysplastic syndrome, coronary artery disease with NV in 2018 and history of GI bleed with multiple AVMs, who presented to the hospital on with concern for rectal bleeding. Ms. Rosado reported that when he awoke on the day of admission, he had a bowel movement x2 with a large amount of dark red to medium red blood. He also reported feeling lightheaded and dizzy. He notes that he is followed closely by Dr. Bernard for myelodysplasia and receives outpatient blood transfusions at times. He reported that over the past 2 weeks, he had received 2 blood transfusions as outpatient. In the emergency room, the patient had labs which showed H and H of 8.4 and 25 and a positive stool occult blood. Mr. Rosado was admitted to the hospital. We watched his anemia closely. His hemoglobin ultimately fell to a chente of 7.6 later on the day of admission. He was transfused a total of 3 units of packed red blood cells during this admission. At the time of discharge, his hemoglobin was 8.8, but then the plan was for him to have the third additional unit prior to discharge. In terms of his anemia, he will be following up with Dr. Bernard on , at which time he can have it re-drawn. In addition to monitoring his anemia and transfusing blood, the patient was also seen in consultation by Gastroenterology and I will refer you to their notes for complete details. In brief, the patient had had a known history of AVMs and was on aspirin as an outpatient. He remains stable during the hospitalization and it was suspected that his previous history of colonic AV malformations were the source of his bleeding. Given that he remains stable, he did not require colonoscopy. Mr. Rosado has been doing well. Again, his hemoglobin was 8.8 this a.m. and he will be transfused 1 unit of packed red blood cells prior to discharge given his history of concomitant myelodysplastic syndrome and ischemic heart disease. He will be following up with Dr. Bernard on . He also has been recommended to follow up with Dr. Das per routine in the next 1 to 2 weeks. Finally, he can consider follow up with Dr. Perez from GI, but normally has routine care at the NH, which he can proceed with. Mr. Rosado is medically stable for discharge home. DISPOSITION: Home. DIET: Low-fat, low-salt, low-carb. ACTIVITY: As tolerated. FOLLOWUP PLANS: Please follow up with Dr. Bernard on per routine and please discuss at that time the use of aspirin. Please follow up with Dr. Das in the next 1 to 2 weeks per routine. Again, please continue to consider the use of aspirin. Please follow up with GI at the NH and/or Dr. Perez if interested. TIME SPENT: Approximately 60 minutes was spent on the discharge of this patient , more than half the time spent with the patient at the bedside reviewing the events leading up to and during this hospitalization, performing the physical examination and reviewing my plan of care. SHAREE SPENCER NP [id number]/[facility] #: [id number] KAREN
[2019-04-01 12:49] VITALS: BP 150/61
== END 2019-04-01 15:45 | disposition home or self-care (01) | DRG 378 ==
LOC: ED 10:43 → MEDTELE 12:55
PROVIDERS: ADMIT Internal Medicine; ATTEND Internal Medicine
PROC: 30233N1 Transfusion of Nonautologous Red Blood Cells into Peripheral Vein, Percutaneous Approach (ICD-10-PCS; principal; 2019-03-29)
DX: K55.21 Angiodysplasia of colon with hemorrhage (principal); D62 Acute posthemorrhagic anemia; N17.9 Acute kidney failure, unspecified; D46.9 Myelodysplastic syndrome, unspecified; I25.10 Atherosclerotic heart disease of native coronary artery without angina pectoris; I25.9 Chronic ischemic heart disease, unspecified; E11.22 Type 2 diabetes mellitus with diabetic chronic kidney disease; I12.9 Hypertensive chronic kidney disease with stage 1 through stage 4 chronic kidney disease, or unspecified chronic kidney disease; N18.9 Chronic kidney disease, unspecified; F17.210 Nicotine dependence, cigarettes, uncomplicated; R94.31 Abnormal electrocardiogram [ECG] [EKG]; I25.2 Old myocardial infarction; Z79.82 Long term (current) use of aspirin; Z79.4 Long term (current) use of insulin; Z79.891 Long term (current) use of opiate analgesic; Z79.899 Other long term (current) drug therapy; Z88.8 Allergy status to other drugs, medicaments and biological substances; Z82.49 Family history of ischemic heart disease and other diseases of the circulatory system; Z83.3 Family history of diabetes mellitus; Z80.1 Family history of malignant neoplasm of trachea, bronchus and lung; Z80.0 Family history of malignant neoplasm of digestive organs; Z80.3 Family history of malignant neoplasm of breast; Z95.1 Presence of aortocoronary bypass graft
CPT/HCPCS: 36415; 80048; 80053; 82270; 84484; 85014; 85018; 85025; 85610; 86850; 86900; 86901; 86922; 93005; 99285; A9270-GY; P9040

== ENCOUNTER 2019-04-08 13:35 | Inpatient (IN) | payer OTHER ==
--- NOTE | 2019-04-08 14:33 | ED ---
GI/ HPI - HPI Summary HPI Summary: This patient is a 73 year old M with a history of myelodysplasia, AVM, lower GI bleed [facility] by with a chief complaint of bloody stool since earlier today. She has a history of small bowel AVMs and was recently admitted to the hospital and given 4 blood transfusions recurrent bleeding. Patient denied having intervention or scopes at that time. He states that today he had a bowel movement that was bloody. Also has abdominal cramping , patient rates the pain 5/10 in severity. Symptoms aggravated by nothing. Symptoms alleviated by nothing. Pt has hx of [place], major GI bleed 1 year ago, and 3 hemorrhoid procedures done. Not on blood thinners. 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 Onset/Duration: Started Hours Ago - earlier today, Still Present Timing: Lasting Hours - since earlier today Severity: Moderate Current Severity: Moderate Pain Intensity: 5 Associated Signs and Symptoms: Positive: Blood w/Stool, Abdominal Pain Aggravating Factor(s): Nothing Alleviating Factor(s): Nothing - Allergy/Home Medications Allergies/Adverse Reactions: Allergies Allergy/AdvReac Type Severity Reaction Status Date / Time ELROY Inhibitors Allergy Unknown Verified 04/08/19 13:46 Reaction Details atorvastatin [From Lipitor] Allergy Unknown Verified 04/08/19 13:46 Reaction Details bupropion Allergy Unknown Verified 04/08/19 13:46 Reaction Details gemfibrozil Allergy Unknown Verified 04/08/19 13:46 Reaction Details metformin Allergy Unknown Verified 04/08/19 13:46 Reaction Details nicotine Allergy Unknown Verified 04/08/19 13:46 Reaction Details rosuvastatin Allergy Unknown Verified 04/08/19 13:46 Reaction Details Home Medications: Home Medications Aspirin EC TAB* [Ecotrin EC Low Dose 81 MG*] 81 mg PO DAILY 04/08/19 [History Confirmed 04/08/19] Carvedilol TAB NF [Coreg TAB NF] 6.25 mg PO BID 04/08/19 [History Confirmed 05/17] Hydrocortisone Acetate [Hemmorex-Hc] 25 mg CO DAILY 04/08/19 [History Confirmed 04/08/19] Insulin GLARGINE(*) [Lantus(*)] 20 units SUBCUT BEDTIME 04/08/19 [History Confirmed 04/08/19] Losartan TAB* [Cozaar TAB*] 50 mg PO QPM 04/08/19 [History Confirmed 04/08/19] Ondansetron TAB* [Zofran 4 MG Tab*] 4 mg PO Q12HR PRN 04/08/19 [History Confirmed 04/08/19] Polyethylene Glycol 3350* [Miralax*] 17 gm PO DAILY PRN 04/08/19 [History Confirmed 04/08/19] Ranitidine TAB (NF) [Zantac TAB (NF)] 300 mg PO DAILY 04/08/19 [History Confirmed 04/08/19] Sennosides/Docusate Sodium [Docusate Sodium-Sennosides Tab] 2 each PO QAM [History Confirmed 04/08/19] Sertraline* [Zoloft*] 150 mg PO BEDTIME 04/08/19 [History Confirmed 04/08/19] Simethicone TAB* [Mylicon TAB*] 80 mg PO ACHS PRN 04/08/19 [History Confirmed ] oxyCODONE/Acetamin 5/325 MG* [Percocet 5/325 TAB*] 1 tab PO Q8H PRN 04/08/19 [ History Confirmed 04/08/19] PMH/Surg Hx/FS Hx/Imm Hx Previously Healthy: No Endocrine/Hematology History: Reports: Hx Blood Transfusions, Hx Bone Marrow Disease, Hx Diabetes, Hx Thyroid Disease, Hx Anemia, Hx Unexplained Bleeding Cardiovascular History: Reports: Hx Angina, Hx Coronary Artery Disease - 4 vessel CABG done 1999 [facility], Hx Hypercholesterolemia, Hx Hypertension, Hx Peripheral Vascular Disease - vascular stents, bypass bilateral lower legs Respiratory History: Reports: Hx Chronic Obstructive Pulmonary Disease (COPD) GI History: Reports: Hx Gastroesophageal Reflux Disease, Hx Gastrointestinal Bleed History: Reports: Other Problems/Disorders - Catcholamine secreting tumors pheochromocytoma Musculoskeletal History: Reports: Hx Back Problems Sensory History: Reports: Hx Contacts or Glasses, Hx Hearing Aid Opthamlomology History: Reports: Hx Contacts or Glasses Neurological History: Reports: Other Neuro Impairments/Disorders - PAIN CLINIC PT Psychiatric History: Reports: Hx Depression, Hx Post Traumatic Stress Disorder - Cancer History Cancer Type, 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 Bypass Right leg 02/2014 [facility]. Back surgery 2011 [facility]. Balloon angioplasty bilateral legs 2000 [facility]. 4 vessel CABG 1999 [facility]. Removal cyst from back, [facility]. Pilonidal cystectomy [facility]. Shrapnel injury to heart in [place] 1966 Hx Anesthesia Reactions: No Infectious Disease History: No Infectious Disease History: Reports: Hx Clostridium Difficile, History Other Infectious Disease - Cellulitis & EBV Denies: Traveled Outside the [place] in Last 30 Days - Family History Known Family History: Positive: Non-Contributory - Social History Alcohol Use: None Substance Use Type: Reports: None Smoking Status (MU): Light Every Day Tobacco Smoker Type: Cigarettes Amount Used/How Often: 1/2 ppd Length of Time of Smoking/Using Tobacco: 50 yrs Have You Smoked in the Last Year: Yes Review of Systems Positive: Abdominal Pain Genitourinary: Other - positive - bloody stool All Other Systems Reviewed And Are Negative: Yes Physical Exam - Summary Physical Exam Summary: Constitutional: Well-developed, Well-nourished, Alert. (-) Distressed Skin: Warm, Dry HENT: Normocephalic; Atraumatic Eyes: Pale conjunctiva, PERRL Neck: Musculoskeletal ROM normal neck. (-) JVD, (-) Stridor, (-) Nuchal rigidity Cardio: Rhythm regular, rate normal, Heart sounds normal; Intact distal pulses; Radial pulses are 2+ and symmetric. (-) Murmur Pulmonary/Chest wall: Port to left chest wall clean dry intact. Effort normal. ( -) Respiratory distress, (-) Wheezes, (-) Rales Abd: Soft, (-) tenderness, (-) Distension, (-) Guarding, (-) Rebound Musculoskeletal: (-) Edema Lymph: (-) Cervical adenopathy Neuro: Alert, Oriented x3 Psych: Mood and affect Normal Triage Information Reviewed: Yes Vital Signs On Initial Exam: Initial Vitals Temp Pulse Resp BP Pulse Ox 97.2 F 76 18 151/62 95 04/08/19 13:37 04/08/19 13:37 04/08/19 13:37 04/08/19 13:37 04/08/19 13:37 Vital Signs Reviewed: Yes Diagnostics - Vital Signs Vital Signs Temp Pulse Resp BP Pulse Ox 04/08/19 13:37 97.2 F 76 18 151/62 95 - Laboratory Result Diagrams: 04/08/19 14:13 04/08/19 14:13 Lab Statement: Any lab studies that have been ordered have been reviewed, and results considered in the medical decision making process. Re-Evaluation - Re-Evaluation First Eval Comment: Hb 6.2, will transfuse 1 unit of red blood cells in ED. Admit to medicine Second Eval Re-Evaluation Time: 17:37 Change: Worse - patient had large bloody bowel movement, paged hospitalist. GIGU Course/Dx - Course Course Of Treatment: 72-year-old male with a history of myelodysplasia, AVM, lower GI bleed and hemorrhoids who presents with GI bleed. - Physical exam notable for pale conjunctiva, has picture of large bloody bowel movement on phone. - Check CBC, type and screen. Dr. Malcolm aware of patient and plan to admit to medicine pending labs. - Patient most likely has recurrent bleed from AVM in small bowel - Diagnoses Provider Diagnoses: Rectal bleed - Physician Notifications Discussed Care Of Patient With: Unique Michaud Time Discussed With Above Provider: 14:57 Instructed by Provider To: Other - Dr. Michaud, hospitalist, agrees to admit pt. - Critical Care Time Critical Care Time: 30-74 min - 30 minutes Discharge ED - Sign-Out/Discharge Documenting (check all that apply): Patient Departure - admit Patient Received Moderate/Deep Sedation with Procedure: No - Discharge Plan Condition: Stable Disposition: ADMITTED TO [facility] - Billing Disposition and Condition Condition: STABLE Disposition: Admitted to [facility] - Attestation Statements Document Initiated by Scribe: Yes Documenting Scribe: Johnny Burton Provider For Whom Scribe is Documenting (Include Credential): Dr. Martha Lucas MD Scribe Attestation: Johnny Gould, scribed for Dr. Martha Lucas MD on 04/08/19 at 1933. Scribe Documentation Reviewed: Yes Provider Attestation: The documentation as recorded by the scribe, Johnny Burton accurately reflects the service I personally performed and the decisions made by me, Dr. Martha Lucas MD Status of Scrol[place]inka Document: Viewed
[2019-04-08 14:54] LABS: INR 1.03 (0.82-1.09)
[2019-04-08 14:55] LABS: ABS Eosinophils 0.2 10^3/ul (0-0.6); ABS Lymphocytes 1.1 10^3/ul (1.0-4.8); ABS Monocytes 0.4 10^3/ul (0-0.8); ABS Neutrophils 4.2 10^3/ul (1.5-7.7); Hematocrit 18 % (42-52); Hemoglobin 6.2 g/dL (14.0-18.0); Lymphocyte % 18.7 %; Mean Corpuscular HGB Conc 34 g/dL (31-36); Mean Corpuscular Hemoglobin 30 pg (27-31); Mean Corpuscular Volume 89 fL (80-94); Mean Platelet Volume 7.6 fL (7.4-10.4); Platelet Count 201 10^3/uL (150-450); Red Blood Count 2.05 10^6 /uL (4.18-5.48); Red Cell Distribution Width 16 % (10-15); White Blood Count 5.9 10^3/uL (3.5-10.8)
[2019-04-08 15:05] LABS: Albumin/Globulin Ratio 1.9 (1-3); Calcium 7.4 mg/dL (8.6-10.3); EGFR African American 73.2 (>60); EGFR Non-African American 60.5 (>60); Globulin 1.6 g/dL (2-4); Potassium 4.2 mmol/L (3.5-5.0); Total Bilirubin 0.1 mg/dL (0.2-1.0); Total Protein 4.6 g/dL (6.4-8.9)
[2019-04-08] MEDS ORDERED: Ondansetron TAB* 4 MG PO PRN (17:01)
--- NOTE | 2019-04-08 20:29 | CONS ---
GASTROENTEROLOGY CONSULT: DATE: 04/08/19 CONSULTING PHYSICIAN: DICTATION ENDS ABRUPTLY [id number]/[facility] #: [id number] MTDD
[2019-04-08] MEDS ORDERED: Magnesium CITRATE* 300 ML BTL PO ONE (21:00)
--- NOTE | 2019-04-08 21:19 | CONS ---
GASTROENTEROLOGY CONSULTATION DATE OF CONSULT: 04/08/19 CONSULTING PHYSICIANS: Martha Lucas, ALICIA; Cali Willett [facility] REASON FOR CONSULTATION: Recurrence of maroon rectal bleeding with anemia with hemoglobin 6.2, down from 8.0 yesterday and 10.3 at the time of his most recent appointment with Dr. Bernard last week HISTORY OF PRESENT ILLNESS: This 73-year-old insulin dependent diabetic with vascular disease and myelodysplastic syndrome is a 100% disabled [place] who been followed closely by the [facility] including a history of colon polyps and arteriovenous malformations of the gut. He had recurring bleeding episodes since fall 2017 and with anemia was receiving multiple transfusions through fall 2017 and the spring 2018. A cardiac cath and joslyn procedural AK delaying some GI procedures. He had a bone marrow biopsy at the [facility] on 11/26/18 and, per his 's report, was told it was normal. She feels the situation could not be stabilized. His last colonoscopy was on 10/02/18, at which time diverticulosis was seen with no active bleeding and hemorrhoids were thought to be the cause of bleeding. He subsequently had hemorrhoidal banding treatments late spring 2018 with the surgical service at the [facility]. Seeking a second GI opinion, he was referred to Dr. Sal Jha in [place], who (per pt's ) made some suggestions and referred the patient to [facility] to see a Dr. Olmos. The exact nature of the that plan is not known to the family and the consult is not availabe. . Apparently due to referral restrictions, a different [facility] doctor, Dr. Chan (?sp) was engaged and the patient has an appointment to see him in mid June 2019. The decision was made to refer him to Dr. Bernard, first seen in late November and Dr. Bernard has been following the patient ever since, ordering iron infusions and for the first time at [facility] blood transfusion 03/04/19. Dr. Bernard made a diagnosis of myelodysplasia and was administering erythropoietin in addition to the iron. The patient had been receiving blood transfusions throughout 2017 and 2018 in [place]. From February 2018 until December 2018, the patient's reports he had 8 hospital stays in [place]. Last week, he was admitted here with visible rectal bleeding. He had a 24-hour interval with no bleeding and therefore, was discharged on 04/01/19 to pursue further workup up in [place]. The patient has had a poor appetite recently. He has had some episodes of fecal incontinence over the last couple of months, sometimes in bed. He is ambulatory and does not use a walker. Over the last 4 to 5 days, he has continued to just have the single stool with some blood seen 2 days ago mixed in. PAST MEDICAL HISTORY: 1. Diabetes - on insulin since 1999. 2. Cardiac catheterization in 2018 in [place] with an AK occurring around that time. 3. Superior mesenteric artery stent -at the [facility] in 2018 on Plavix briefly in mid 2018 - records not in the [facility] records sent thus far 4. Epigastric pain - the subject of upper endoscopy and other investigations in 2018 and per the patient's , Dr. Jha suggested the patient have a SPAULDING study. That has not taken place. 5. Vascular bypass to the left leg and stent to the right leg. 6. Coronary bypass surgery - followed by Dr. Palomares at [facility]. 7. Chronic anemia - right infraclavicular port placed at the [facility] in November 2018 for his iron infusions MEDICATIONS: At home, a list of 17 and of GI relevance, 1. MiraLAX regularly 1 or 2 caps a day. 2. Rabeprazole 20 mg b.i.d. 3. Oxycodone 5 mg every 4 to 6 hours p.r.n. 4. Senna. 5. Multiple cardiac meds. SOCIAL HISTORY: He is and has 100% service connected disability. [place] is referenced. His primary physician is Dr. Cali Ochoa and, before referral after the second opinion with Dr. Jha and later Dr. Bernard , it appears that 100% of his medical care was through the [facility]. as there were no medical visits to the [facility] system for ten yrs 2002 to 2014 REVIEW OF SYSTEMS: No history of seizure, overt CVA, syncope, pacemaker, hepatitis, jaundice, bowel obstruction, renal stones, or recent fall or trauma. The plan over the last several months was for him to monitor his anemia getting a blood draw every Sunday and then based on the results, see Dr. Bernard on , possibly receiving erythropoietin, possible receiving intravenous iron and on 2 occasions since 03/06/19 packed cells. PHYSICAL EXAM: He is a pale man, quiet, allowing his to answer essentially all the questions. He has no adenopathy. Breath sounds are diminished with poor effort, but symmetric. Heart sounds are regular. The abdomen is obese with normal bowel sounds, symmetric, soft. Rectal: Deferred. Extremities show poor muscle bulk and there is 1+ pedal edema. DIAGNOSTIC STUDIES/LAB DATA: White count 5.9, hemoglobin 6.2, transfusions planned, platelets 201. BUN 26, creatinine 1.18. Erythropoietin most recent on 01/23/19 of 18.3. IMPRESSION AND PLAN: This 73-year-old man with a history of chronic blood loss anemia complicated by presumably inability of the bone marrow to respond, has had some increase in painless visible rectal bleeding in the last couple of weeks. This is despite having had 5-6 colonoscopies in the last 18 to 24 months at the [facility]. Diverticulosis has been seen, hemorrhoids treated and numerous polyps removed over the last couple of years during colonoscopies first done in 2017 in a sequence of 4 to 5 at the [facility]. Some episodes of acute bleeding in 2018 were attributed to diverticulosis. Most recently in September 2018 colonoscopy came to conclusion that hemorrhoids were important. He has thus had hemorrhoid surgery. The records submitted so far of last 2 colonoscopies, do not document prior attempts to coagulate arteriovenous malformations (colon or EGD) or to what extent they are priority. At this point, the choices are either to try to prep him for a colonoscopy here (very difficult practically and with his cardiac situation) or transfer back to the [facility] where other care has been - at [facility] or [place]. Most of his care has been through the [facility] and at the [facility] and after transfusion here that might be optimal as his cardiac situation will likely be complex. . [id number]/[facility] #: [id number] KAREN
[2019-04-08] MEDS: Sertraline* 50 MG TAB PO SCH (21:45)
[2019-04-08] MEDS: Pantoprazole TAB * 40 MG TAB PO SCH (21:45)
[2019-04-08] MEDS: Topiramate TAB(*) 25 MG PO SCH (21:45)
[2019-04-08] MEDS: Carvedilol TAB* 6.25 MG PO SCH (21:45)
[2019-04-08] MEDS ORDERED: Dextrose 50% VIAL 50 ml IV PUSH PRN (22:29)
[2019-04-08] MEDS: Nitroglycerin TAB 0.4 MG* 0.4 MG TAB SL PRN ×2 (22:41→22:52)
--- NOTE | 2019-04-08 22:44 | HP ---
CC: Dr. Das; Dr. Bernard.* HISTORY AND PHYSICAL: DATE OF ADMISSION: 04/08/19 PROVIDER: Una Heck NP PRIMARY CARE PROVIDER: Dr. Das. ATTENDING PHYSICIAN WHILE IN THE HOSPITAL: Dr. Unique Michaud * (dictated by Una Heck NP). CHIEF COMPLAINT: Rectal bleeding. HISTORY OF PRESENT ILLNESS: Mr. Rosado is a 73-year-old male with a past medical history significant for coronary artery disease, LA, history of gastrointestinal bleeding in 2018, myelodysplastic syndrome, history of ischemic heart disease, angina, anemia, history of exposure to [place], who presented to the emergency room due to acute rectal bleeding. The patient reports that this morning, he woke up at approximately 10:30, had 2 large bowel movements that were bright red to medium red that were liquid. Due to these episodes, he presented to the emergency room for further evaluation. Of note, the patient was just recently admitted from 03/29/19 to 04/01/19 with a similar episode of lower GI bleeding, again with bright red bowel movement. He did receive multiple transfusions during that hospitalization and due to his rectal bleeding subsiding, he did not receive a colonoscopy during that hospitalization. Gastroenterology was consulted and they felt that his symptoms have stabilized and he could follow up as an outpatient with Dr. Perez or at the [facility]. Today, the patient denies any headache, weakness, dizziness. Denies any chest pain. Denies any recent fever, chills. Denies any cough, hemoptysis, shortness of breath. No nausea, vomiting, diarrhea. He denies any abdominal pain, hematuria, dysuria, focal weakness or sensory loss. Denies any visual complaints, dysphagia, arthralgias, myalgias, rashes, lesions, open sores, psychosis or anxiety. While in the emergency room, he had routine lab work drawn. He was found to have hemoglobin of 6.2 and hematocrit of 18. BUN and creatinine were mildly elevated at 26 and 1.18. Due to these findings, Hospital Medicine was asked to see and consult due to GI bleeding. PAST MEDICAL HISTORY: Significant for: 1. History of coronary artery disease. 2. History of LA in 2018. 3. History of GI bleeding with AVMs and hemorrhoids. 4. Myelodysplastic syndrome. 5. Ischemic heart disease. 6. Angina. 7. Diabetes type 2. 8. Anemia. 9. Exposure to [place]. PAST SURGICAL HISTORY: 1. Tail bone cyst removed. 2. Cardiac catheterization in 1998 and 1999. 3. L4-L5 laminectomy. 4. Bypass in left leg, stent in the right leg. 5. Shoulder surgery. 6. Open heart surgery. HOME MEDICATIONS: Include: 1. Lantus 20 units at h.s. 2. NovoLog 8 units with meals. 3. MiraLAX 1 to 2 capsules p.o. daily. 4. Simethicone 80 mg p.o. daily as needed. 5. Carvedilol 2.5 mg half a tab twice daily. 6. Losartan 50 mg p.o. daily. 7. Aspirin 81 mg p.o. daily. 8. Vitamin D 1000 units p.o. daily. 9. Vitamin B 500 mcg p.o. daily. 10. Isosorbide/mononitrate 120 mg p.o. q. p.m. 11. Sertraline 150 mg at h.s. 12. Topiramate 150 mg at h.s. 13. Folic acid 1 mg p.o. daily. 14. Colace/senna 1 tablet p.o. daily. 15. Oxycodone 5 mg p.o. q.4 hours as needed for pain. 16. Rabeprazole 20 mg p.o. b.i.d. 17. Nitroglycerin 0.4 mg sublingual q.5 minutes as needed for angina. 18. Zantac 300 mg as needed. ALLERGIES: 1. NICOTINE. 2. GEMFIBROZIL. 3. METFORMIN. 4. WELLBUTRIN. 5. ELROY INHIBITORS. 6. ATORVASTATIN. 7. Rosuvastatin. FAMILY HISTORY: Father with history of seizures. Brother with diabetes. Brother with lung cancer. Mother with gallbladder cancer. Sister with history of breast cancer x2 sisters, the other one with colon cancer. SOCIAL HISTORY: The patient smokes half a pack per day. Denies any alcohol or illicit drug use. He is . Surrogate decision maker in the event that he is unable to make his own decision is his . He is a full code. REVIEW OF SYSTEMS: 14-point review of systems was completed, all pertinent positives are mentioned in the HPI. PHYSICAL EXAMINATION GENERAL: At this time, Mr. Rosado is a 73-year-old male. He is alert and oriented. He is pale, resting on the stretcher in the emergency room. He is in no acute distress. VITAL SIGNS: Blood pressure 111/60, heart rate 66, respirations are 12, temperature was 97.2. HEENT: Head is atraumatic, normocephalic. Eyes: EOMs are intact. Sclerae anicteric and not pale. Oral mucosa appear to be moist. NECK: Supple. LUNGS: Clear to auscultation bilaterally. No wheezes, rales, or rhonchi. CARDIAC: S1, S2. Regular rate and rhythm. No murmurs, rubs, or gallops. ABDOMEN: Soft and nontender. Bowel sounds are present x4. EXTREMITIES: He is able to move all 4 extremities with 5/5 strength. NEUROLOGIC: He is awake, alert, oriented x3. Speech is clear. Thought process is intact. There are no gross focal deficits. SKIN: Pale, warm, dry. He has no open rashes or lesions. DIAGNOSTIC STUDIES/LAB DATA: WBCs are 5.9, RBCs 2.05, hemoglobin 6.2, hematocrit 18, platelet count 201. INR 1.03. Sodium 139, potassium 4.2, chloride 115, carbon dioxide is 22, anion gap was 2, BUN 26, creatinine 1.18, glucose was 219, calcium 7.4. ASTs are 7, ALT are 5, alkaline phosphatase 54. Total protein is 4.6, albumin 3.0. ASSESSMENT AND PLAN: Mr. Rosado is a 73-year-old male with a past medical history significant for coronary artery disease, myocardial infarction status post open heart surgery, gastrointestinal bleeding, myelodysplastic syndrome, history of angina and anemia, who presented to the emergency room with rectal bleeding. The patient will be admitted for: 1. Lower gastrointestinal bleeding. The patient does report medium red to bright red bleeding from the rectum. He did have an H and H drawn, which showed hemoglobin of 6.2 and hematocrit of 18. He will be given 2 units of packed red blood cells, normal saline at 75 cc per hour. I will hold his aspirin. We will continue to transfuse blood for hemoglobin less than 8 as the patient does have cardiac history per his , Dr. Bernard, who follows him closely, prefers to have his hemoglobin close to 9 due to his history of myocardial infarctions. I will repeat H and H every 6 hours. I will leave him on PPI b.i.d. with Protonix 40 mg p.o. b.i.d. I did contact Dr. Mallory from Gastroenterology who recommended a bottle of mag citrate this evening. Subsequently did receive a call from Dr. Malcolm, who was contacted by the emergency room, who has recommended a bowel prep beginning with mag citrate and then beginning GoLYTELY at 6 a.m. 2. Diabetes. I will place him on fingersticks a.c. and h.s. At this time, he will be n.p.o. I will place him on Lispro sliding scale. I am going to hold his Lantus and hold due to his n.p.o. status. 3. History of coronary artery disease. I will continue on his carvedilol b.i.d. with holding parameters of blood pressure less than 100, heart rate less than 60. We will continue his home medications as previously prescribed. The patient denies any chest pain at this time or any chest pain during any of these episodes. 4. Acid reflux. The patient will continue on pantoprazole as previously prescribed. 5. Myelodysplastic syndrome. The ER again did talk to Dr. Das in relation to the patient's myelodysplastic syndrome. Per the ER, recommend treating his gastrointestinal bleeding. 6. Chronic kidney disease. The patient does have an elevated BUN and creatinine, which is mildly elevated, but appears to be consistent with previous lab work. We will continue to monitor. 7. FEN. He is n.p.o. 8. Code status: He is a full code. 9. DVT prophylaxis: I will place him on SCDs as chemical DVT prophylaxis is contraindicated at this time due to patient's gastrointestinal bleeding. TIME SPENT: Time spent on this admission was 60 minutes, greater than half that time was spent at the bedside reviewing events leading thus far to his hospitalization, performing physical exam, and reviewing my plan of care. I have discussed this with my attending, Dr. Unique Michaud; she is in agreement with my plan. UNA HECK, ROCHELLE [id number]/[facility] #: [id number] [facility]
[2019-04-08] MEDS: Insulin LISPRO* 1 UNITS UNIT SUBCUT SCH (23:16)
[2019-04-09] MEDS: Nitroglycerin TAB 0.4 MG* 0.4 MG TAB SL PRN ×6 (00:42→14:19)
[2019-04-09] MEDS: NS 0.9% 1000 ML** 1,000 ML IV SCH ×2 (00:45→12:21)
[2019-04-09] MEDS: oxyCODONE/Acetamin 5/325 MG* TAB PO PRN (01:15)
[2019-04-09 02:36] LABS: Hematocrit 25 % (42-52); Hemoglobin 8.4 g/dL (14.0-18.0)
[2019-04-09] MEDS ORDERED: PEG 3000 GI LAVAGE* 1 GALLON PO ONE (06:00)
[2019-04-09 06:01] LABS: ABS Monocytes 0.3 10^3/ul (0-0.8); ABS Neutrophils 5.6 10^3/ul (1.5-7.7); Hematocrit 23 % (42-52); Hemoglobin 7.5 g/dL (14.0-18.0); Lymphocyte % 14.5 %; Mean Corpuscular HGB Conc 34 g/dL (31-36); Mean Corpuscular Hemoglobin 27 pg (27-31); Mean Corpuscular Volume 80 fL (80-94); Mean Platelet Volume 8.1 fL (7.4-10.4); Platelet Count 134 10^3/uL (150-450); Red Blood Count 2.82 10^6 /uL (4.18-5.48); Red Cell Distribution Width 21 % (10-15); White Blood Count 6.9 10^3/uL (3.5-10.8)
[2019-04-09 06:11] LABS: BUN/Creatinine Ratio 26.5 (8-20); Blood Urea Nitrogen 31 mg/dL (6-24); CO2 Carbon Dioxide 19 mmol/L (22-32); Calcium 7.5 mg/dL (8.6-10.3); EGFR African American 73.9 (>60); EGFR Non-African American 61.1 (>60); Glucose 183 mg/dL (70-100); Potassium 4.2 mmol/L (3.5-5.0); Sodium 140 mmol/L (135-145)
[2019-04-09 06:16] LABS: Anion Gap 4 mmol/L (2-11); Chloride 117 mmol/L (101-111)
[2019-04-09] MEDS: Carvedilol TAB* 6.25 MG PO SCH ×2 (07:22→21:26)
[2019-04-09] MEDS: Pantoprazole TAB * 40 MG TAB PO SCH ×2 (07:22→21:26)
[2019-04-09] MEDS: Isosorbide Mononitrate ER TAB* 60 MG PO SCH (07:22)
[2019-04-09 07:26] LABS: Hematocrit 22 % (42-52); Hemoglobin 7.2 g/dL (14.0-18.0)
[2019-04-09] MEDS: Insulin LISPRO* 1 UNITS UNIT SUBCUT SCH ×4 (09:14→21:10)
--- NOTE | 2019-04-09 12:01 | PN ---
Progress Note - Progress Note Date of Service: 04/09/19 SOAP: Subjective: []Admitted yesterday due to active GI bleed with plan for colonoscopy this afternoon/evening. Currently attempting to complete prep. Recieved 2 units PRBCs overnight. Still having bright red liquid stools. Exhausted. Medications: Carvedilol (Coreg Tab*) 6.25 mg PO BID [facility] Last Admin: 04/09/19 07:22 Dose: 6.25 mg Dextrose (Dextrose 50% Vial 50 Ml*) 25 ml IV PUSH .FOR FS < 60 - SS PRN PRN Reason: FS < 60 Sodium Chloride (Ns 0.9% 1000 Ml) 1,000 mls @ 75 mls/hr IV PER RATE [facility] Last Admin: 04/09/19 00:45 Dose: 75 mls/hr Insulin Human Lispro (Humalog*) 0 units SUBCUT ACHS [facility]; Protocol Last Admin: 04/09/19 11:40 Dose: Not Given Isosorbide Mononitrate (Imdur Er Tab*) 120 mg PO QAM [facility] Last Admin: 04/09/19 07:22 Dose: 120 mg Nitroglycerin (Nitroglycerin Tab 0.4 Mg*) 0.4 mg SL Q5M PRN PRN Reason: ANGINA Last Admin: 04/09/19 07:28 Dose: 0.4 mg Ondansetron HCl (Zofran Tab*) 4 mg PO Q12HR PRN PRN Reason: INDIGESTION Oxycodone/Acetaminophen (Percocet 5/325 Tab*) 1 tab PO Q8H PRN PRN Reason: PAIN - MODERATE Last Admin: 04/09/19 01:15 Dose: 1 tab Pantoprazole Sodium (Protonix Tab*) 40 mg PO BID [facility]; Protocol Last Admin: 04/09/19 07:22 Dose: 40 mg Sertraline HCl (Zoloft*) 150 mg PO BEDTIME [facility] Last Admin: 04/08/19 21:45 Dose: 150 mg Topiramate (Topamax(*)) 150 mg PO BEDTIME [facility] Last Admin: 04/08/19 21:45 Dose: 150 mg Objective: [] Vital Signs Temp Pulse Resp BP Pulse Ox 98.3 F 86 18 144/68 96 04/09/19 11:15 04/09/19 11:15 04/09/19 11:15 04/09/19 11:15 04/09/19 11:15 A&Ox3, pale HRR, S1S2 LS clear Hyperactive BS, tender Laboratory Results - last 24 hr 04/08/19 04/08/19 04/08/19 14:13 14:13 14:13 WBC 5.9 RBC 2.05 L Hgb 6.2 L* Hct 18 L MCV 89 MCH 30 MCHC 34 RDW 16 H Plt Count 201 MPV 7.6 Neut % (Auto) 71.6 Lymph % (Auto) 18.7 [place] % (Auto) 5.9 Eos % (Auto) 3.0 Baso % (Auto) 0.8 Absolute Neuts (auto) 4.2 Absolute Lymphs (auto) 1.1 Absolute Monos (auto) 0.4 Absolute Eos (auto) 0.2 Absolute Basos (auto) 0.0 Absolute Nucleated RBC 0.0 Nucleated RBC % 0.0 INR (Anticoag Therapy) 1.03 Sodium 139 Potassium 4.2 Chloride 115 H Carbon Dioxide 22 Anion Gap 2 BUN 26 H Creatinine 1.18 H Est GFR ( Amer) 73.2 Est GFR (Non-Af Amer) 60.5 BUN/Creatinine Ratio 22.0 H Glucose 219 H POC Glucose (mg/dL) Calcium 7.4 L Total Bilirubin 0.10 L AST 7 L ALT 5 L Alkaline Phosphatase 54 Total Protein 4.6 L Albumin 3.0 L Globulin 1.6 L Albumin/Globulin Ratio 1.9 04/08/19 04/09/19 04/09/19 22:12 02:24 05:25 WBC RBC Hgb 8.4 L Hct 25 L MCV MCH MCHC RDW Plt Count MPV Neut % (Auto) Lymph % (Auto) [place] % (Auto) Eos % (Auto) Baso % (Auto) Absolute Neuts (auto) Absolute Lymphs (auto) Absolute Monos (auto) Absolute Eos (auto) Absolute Basos (auto) Absolute Nucleated RBC Nucleated RBC % INR (Anticoag Therapy) Sodium 140 Potassium 4.2 Chloride 117 H Carbon Dioxide 19 L Anion Gap 4 BUN 31 H Creatinine 1.17 Est GFR ( Amer) 73.9 Est GFR (Non-Af Amer) 61.1 BUN/Creatinine Ratio 26.5 H Glucose 183 H POC Glucose (mg/dL) 262 H Calcium 7.5 L Total Bilirubin AST ALT Alkaline Phosphatase Total Protein Albumin Globulin Albumin/Globulin Ratio 04/09/19 04/09/19 04/09/19 05:25 06:52 07:15 WBC 6.9 RBC 2.82 L Hgb 7.5 L 7.2 L Hct 23 L 22 L MCV 80 MCH 27 MCHC 34 RDW 21 H Plt Count 134 L MPV 8.1 Neut % (Auto) 80.7 Lymph % (Auto) 14.5 [place] % (Auto) 4.2 Eos % (Auto) 0.0 Baso % (Auto) 0.6 Absolute Neuts (auto) 5.6 Absolute Lymphs (auto) 1.0 Absolute Monos (auto) 0.3 Absolute Eos (auto) 0.0 Absolute Basos (auto) 0.0 Absolute Nucleated RBC 0.0 Nucleated RBC % 0.0 INR (Anticoag Therapy) Sodium Potassium Chloride Carbon Dioxide Anion Gap BUN Creatinine Est GFR ( Amer) Est GFR (Non-Af Amer) BUN/Creatinine Ratio Glucose POC Glucose (mg/dL) 163 H Calcium Total Bilirubin AST ALT Alkaline Phosphatase Total Protein Albumin Globulin Albumin/Globulin Ratio Assessment: []73 yo male with history of agent [place] exposure diagnosed with refractory anemia (MDS), on bone marrow biopsy (10/2018 completed @ [place]), complicated by NAOMI secondary to GI blood loss (known AVMs and diverticulitis) presenting yesterday with hematochezia. Plan: []1. GIB: agree with GI work-up 2. Anemia and chest pain: recommend aggressive transfusions d/t complicated anemia (known bone marrow dysfunction) and hx. of [place] in setting of severe anemia (2018), recommend maintaining hmg >/=8 Oncology to cont. to follow
[2019-04-09 12:17] LABS: Troponin I 2.31 ng/mL (<0.04)
[2019-04-09 13:14] LABS: Troponin I 4.54 ng/mL (<0.04)
[2019-04-09] MEDS ORDERED: Morphine INJ* 2 MG/ML 1 ML SYRINGE (TWO MG - NEW SYRINGE VERSION) IV ONE ×2 (13:32→14:26)
[2019-04-09] MEDS ORDERED: Nitro 2% OINT* (Nitroglycerin) 1 INCH/PAK PAK TOPICAL ONE (13:33)
[2019-04-09] MEDS ORDERED: Morphine INJ* 2 MG/ML 1 ML SYRINGE (TWO MG - NEW SYRINGE VERSION) IV PRN (14:19)
[2019-04-09] MEDS ORDERED: Perflutren Lipid Microsphere* 3 ML VIAL ONE (14:52)
[2019-04-09] MEDS ORDERED: Morphine 4 MG/ML VIAL (1 ml) 4 MG/ML VIAL IV ONE (14:54)
[2019-04-09 15:24] LABS: Magnesium 2.1 mg/dL (1.9-2.7)
[2019-04-09] MEDS ORDERED: Sucralfate SUSP 1 GM/10 ml 10 ML UDC PO ONE (15:30)
[2019-04-09] MEDS ORDERED: Lidocaine 2% VISCOUS* 15 ML UDC PO ONE (15:30)
[2019-04-09] MEDS ORDERED: Metoprolol Tartrate TAB* 25 MG PO ONE (15:35)
--- NOTE | 2019-04-09 15:56 | CONSULT ---
Subjective Date of Service: 04/09/19 - CC: 1. melena 2. 8/10 chest pain Interval History: 73 yo followed at the [facility] with long PMHx of GI bleeding and diffuse vascular disease (distant CABG, stent to SMA and PVD LE's. yesterday developed bloody diarrhea and presented to the hospital. Anemic on admission. Anginal pain started last night, persisted today. Currently the pain is 8/10 (getting PRBC, s/p NTG paste and SL NTG). Pt takes baby ASA, no recent NSAIDs per . Family History: Unchanged from Admission Social History: Unchanged from Admission - +active smoker Past Medical History: Unchanged from Admission - CAD, CABG, cath 2018 [place]: ROSAS to LAD (patent), SVG to RCA (culpret lesion) moderate disease [place] Cx, stent to SMA, PVD LE with stents to both legs, GI bleed: AVM's, polyps, hemerrhoids, TICs, dyslipidemia Medications Active Medications: Carvedilol (Coreg Tab*) 6.25 mg PO BID [facility] Last Admin: 04/09/19 07:22 Dose: 6.25 mg Dextrose (Dextrose 50% Vial 50 Ml*) 25 ml IV PUSH .FOR FS < 60 - SS PRN PRN Reason: FS < 60 Sodium Chloride (Ns 0.9% 1000 Ml) 1,000 mls @ 75 mls/hr IV PER RATE [facility] Last Admin: 04/09/19 12:21 Dose: 75 mls/hr Insulin Human Lispro (Humalog*) 0 units SUBCUT [facility]; Protocol Last Admin: 04/09/19 11:40 Dose: Not Given Isosorbide Mononitrate (Imdur Er Tab*) 120 mg PO QAM [facility] Last Admin: 04/09/19 07:22 Dose: 120 mg Morphine Sulfate (Morphine Inj (Syringe))*) 2 mg IV Q2H PRN PRN Reason: PAIN - SEVERE Nitroglycerin (Nitroglycerin Tab 0.4 Mg*) 0.4 mg SL Q5M PRN PRN Reason: ANGINA Last Admin: 04/09/19 14:19 Dose: 0.4 mg Ondansetron HCl (Zofran Tab*) 4 mg PO Q12HR PRN PRN Reason: INDIGESTION Oxycodone/Acetaminophen (Percocet 5/325 Tab*) 1 tab PO Q8H PRN PRN Reason: PAIN - MODERATE Last Admin: 04/09/19 01:15 Dose: 1 tab Pantoprazole Sodium (Protonix Tab*) 40 mg PO BID [facility]; Protocol Last Admin: 04/09/19 07:22 Dose: 40 mg Sertraline HCl (Zoloft*) 150 mg PO BEDTIME [facility] Last Admin: 04/08/19 21:45 Dose: 150 mg Topiramate (Topamax(*)) 150 mg PO BEDTIME [facility] Last Admin: 04/08/19 21:45 Dose: 150 mg Home Medications: Cholecalciferol TAB* [Vitamin D TAB*] 1,000 unit PO QAM 02/08/15 [History Confirmed 04/08/19] Cyanocobalamin TAB* [Vitamin B12 TAB*] 1 tab PO DAILY 02/08/15 [History Confirmed 04/08/19] Insulin Aspart [Novolog Flexpen] 10 unit SC TID 02/08/15 [History Confirmed 05/17] Multivitamins/Minerals TAB* [Thera M Plus TAB*] 1 tab PO DAILY 02/08/15 [ History Confirmed 04/08/19] Topiramate TAB(*) [Topamax 25 MG tab] 150 mg PO BEDTIME 02/08/15 [History Confirmed 04/08/19] Folic Acid TAB* [Folvite TAB*] 1 mg PO DAILY 10/04/17 [History Confirmed ] Isosorbide Mononitrate [Isosorbide Mononitrate ER] 120 mg PO QAM 03/29/19 [ History Confirmed 04/08/19] Nitroglycerin TAB 0.4 MG* 0.4 mg SL Q5M PRN 03/29/19 [History Confirmed 04/08/19 ] Rabeprazole Sodium 20 mg PO BID 03/29/19 [History Confirmed 04/08/19] Aspirin EC TAB* [Ecotrin EC Low Dose 81 MG*] 81 mg PO DAILY 04/08/19 [History Confirmed 04/08/19] Carvedilol TAB NF [Coreg TAB NF] 6.25 mg PO BID 04/08/19 [History Confirmed 05/17] Hydrocortisone Acetate [Hemmorex-Hc] 25 mg ID DAILY 04/08/19 [History Confirmed 04/08/19] Insulin GLARGINE(*) [Lantus(*)] 20 units SUBCUT BEDTIME 04/08/19 [History Confirmed 04/08/19] Losartan TAB* [Cozaar TAB*] 50 mg PO QPM 04/08/19 [History Confirmed 04/08/19] Ondansetron TAB* [Zofran 4 MG Tab*] 4 mg PO Q12HR PRN 04/08/19 [History Confirmed 04/08/19] Polyethylene Glycol 3350* [Miralax*] 17 gm PO DAILY PRN 04/08/19 [History Confirmed 04/08/19] Ranitidine TAB (NF) [Zantac TAB (NF)] 300 mg PO DAILY 04/08/19 [History Confirmed 04/08/19] Sennosides/Docusate Sodium [Docusate Sodium-Sennosides Tab] 2 each PO QAM [History Confirmed 04/08/19] Sertraline* [Zoloft*] 150 mg PO BEDTIME 04/08/19 [History Confirmed 04/08/19] Simethicone TAB* [Mylicon TAB*] 80 mg PO ACHS PRN 04/08/19 [History Confirmed ] oxyCODONE/Acetamin 5/325 MG* [Percocet 5/325 TAB*] 1 tab PO Q8H PRN 04/08/19 [ History Confirmed 04/08/19] Review of Systems - Measurements Intake and Output: Intake and Output Last 24 Hours 04/07/19 04/08/19 04/09/19 04/10/19 04:59 04:59 04:59 04:59 Intake Total 1221 415 Output Total 420 Balance 1221 -5 Weight 206 lb 6.4 oz Intake: IV Fluids 350 415 Blood 300 NS 50 415 Oral 240 0 Packed Cells 631 Output: Urine 420 Other: # Bowel Movements 0 3 Estimated Stool Amount Large Small # Voids 1 - Review of Systems General Comments: The patient was not a verbose historian, most information via the patient's . + for SOB. + CP + recent bloody diarrhea. Denies recent medication or lifestyle changes. Review of Systems Statement: All other review of systems negative, unless stated above. Objective Vital Signs: Temp Pulse Resp BP Pulse Ox 98 F 85 18 146/70 100 04/09/19 14:21 04/09/19 14:21 04/09/19 15:03 04/09/19 14:21 04/09/19 14:21 Oxygen Devices in Use Now: None, Nasal Cannula Appearance: pale older gentleman, appears placid, in no distress, sitting at 75 degrees in hospital bed. Eyes: No Scleral Icterus, PERRLA Ears/Nose/Mouth/Throat: Mucous Membranes Moist Neck: NL Appearance and Movements; NL JVP, Trachea Midline Respiratory: Symmetrical Chest Expansion and Respiratory Effort - few crackles at the bases. Cardiovascular: RRR Abdominal: NL Sounds; No Tenderness; No Distention Extremities: No Clubbing, Cyanosis - trace edema legs. Skin: - - pale, conjunctiva pale too. Neurological: Alert and Oriented x 3 Lines/Tubes/Other Access: Clean, Dry and Intact Peripheral IV Laboratory Results: 04/09/19 07:15 04/09/19 05:25 INR (Anticoag Therapy) 1.03 (0.82-1.09) 04/08/19 14:13 Total Bilirubin 0.10 mg/dL (0.2-1.0) L 04/08/19 14:13 AST 7 U/L (13-39) L 04/08/19 14:13 ALT 5 U/L (7-52) L 04/08/19 14:13 Alkaline Phosphatase 54 U/L (34-104) 04/08/19 14:13 CK-MB (CK-2) 21.0 ng/mL (0.6-6.3) H 04/09/19 12:32 Total Protein 4.6 g/dL (6.4-8.9) L 04/08/19 14:13 Albumin 3.0 g/dL (3.2-5.2) L 04/08/19 14:13 Globulin 1.6 g/dL (2-4) L 04/08/19 14:13 Albumin/Globulin Ratio 1.9 (1-3) 04/08/19 14:13 04/09/19 04/09/19 05:25 12:32 Troponin I 2.31 H* 4.54 H* Diagnostic Imaging: CXR: hyperinflation EKG Data: 04/09/19 : ST depression precordial leads and inverted T waves V1-V4 new c/w admission. ST elevation inferior leads and inferior Q's - chronic. Assessment/Plan 73 yo vasculopath with active GI bleed and angina with NQMI in the setting of significant anemia. Not an interventional candidate now due to GI bleed, unable to use anticoagulants that would be needed post PTCA or PTCA+stent, however GI states if source of bleed is diverticular then the patient could get a stent. Medical management: -Getting PRBC for improved O2 delivery -Add pure beta marck for now (instead of Coreg). -Agree with Nitrates -Anxiolytics -treat lipids if able with hx statin intolerance. I ordered lipids. PCSK9 inhibitor if able w/insurance. Colestid if OK with GI. SUPPORTIVE CARE: Stabilize GI bleed. Optimize acid/base status. Smoking cessation a must for diffuse vascular disease, GI bleeding, general health. Echo done: Transthoracic Echocardiogram Patient: Cristopher Rosado : 1945 Study Date: 04/09/2019 *Reading Physician: * Judy Velasco MD Indications: Abnormal EKG. Summary: - Procedure narrative: Image quality was fair. - Left ventricle: Wall thickness is mildly increased. The estimated ejection fraction is 40-45%. Severe hypokinesis of the basalinferolateral, inferior, and inferoseptal myocardium. Features are consistent with a pseudonormal left ventricular filling pattern, with concomitant abnormal relaxation and increased filling pressure (grade 2 diastolic dysfunction). - Right ventricle: Systolic function is normal. - Mitral valve: There is mild to moderate regurgitation. - Pulmonary arteries: Systolic pressure can not be accurately Records from [place] cath and hospitalization 2018 reviewed: Not felt to be a candidate for stenting of culpret lesion at that time, the SVG to RCA due to GI bleed. I could not determine etiology of GI bleed from the records, but they describe rectal bleed.
[2019-04-09] MEDS ORDERED: Lactated Ringers 1000 ML Bag* 1,000 ML IV SCH (16:00)
--- NOTE | 2019-04-09 16:29 | ECHO ---
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 History: Coronary artery disease. The patient has a hematologic malignancy. PMH: Myocardial infarction. Risk factors: Current tobacco use. Diabetes mellitus. Labs, prior tests, procedures, and surgery: Coronary artery bypass grafting. Conclusions Summary: - Procedure narrative: Image quality was fair. - Left ventricle: Wall thickness is mildly increased. The estimated ejection fraction is 40-45%. Severe hypokinesis of the basalinferolateral, inferior, and inferoseptal myocardium. Features are consistent with a pseudonormal left ventricular filling pattern, with concomitant abnormal relaxation and increased filling pressure (grade 2 diastolic dysfunction). - Right ventricle: Systolic function is normal. - Mitral valve: There is mild to moderate regurgitation. - Pulmonary arteries: Systolic pressure can not be accurately estimated. - Prior echos not available to compare. Study data: Transthoracic echocardiogram. Procedure: Transthoracic echocardiography was performed. Image quality was adequate. Intravenous Definity , 2 mlswas administered. Complete 2D, spectral Doppler, and color flow Doppler. Location: Bedside. Patient status: Inpatient. Patient room number: 440. Rhythm: Normal sinus rhythm. Findings Left ventricle: The cavity size is normal. Wall thickness is mildly increased. Systolic function is mildly reduced. The estimated ejection fraction is 40-45%. Regional wall motion abnormalities: Severe hypokinesis of the basalinferolateral, inferior, and inferoseptal myocardium. Features are consistent with a pseudonormal left ventricular filling pattern, with concomitant abnormal relaxation and increased filling pressure (grade 2 diastolic dysfunction). Right ventricle: The cavity size is normal. Systolic function is normal. Left atrium: The atrium is mildly dilated. Right atrium: The atrium is normal in size. Mitral valve: The leaflets are mildly thickened. There is no evidence of stenosis. There is mild to moderate regurgitation. Aortic valve: The valve is probably trileaflet. There is no evidence of stenosis. There is no significant regurgitation. Tricuspid valve: The leaflets are normal thickness. There is no evidence of stenosis. There is no significant regurgitation. Pulmonic valve: Not well visualized. There is trace regurgitation. Aorta: Aortic arch: The aortic arch is poorly visualized. The aortic root appears normal. Pericardium: There is no significant pericardial effusion. Pulmonary arteries: Not well visualized. Systolic pressure can not be accurately estimated. Systemic veins: Inferior vena cava: Not well visualized. Measurements Left ventricle Value Ref Aortic valve Value Ref YISSEL, LAX 4.8 cm 4.2 - 5.8 Peak v, S 1.12 m/sec ---- ESD, LAX (H) 4.7 cm 2.5 - 4.0 VTI, S 19.3 cm ---- FS, LAX (L) 2 % 25 - 43 Mean grad, S 2.3 mm Hg ---- PW, ED, LAX (H) 1.3 cm 0.6 - 1.0 Peak grad, S 5.0 mm Hg ---- EF (L) 4 % 52 - 72 LVOT/AV, VTI ratio 0.71 ---- E', lat zuly, TDI (L) 5.3 cm/sec >=10.0 E/e', lat zuly, TDI 19 --------- Mitral valve Value Ref E', med zuly, TDI (L) 3.0 cm/sec >=7.0 Peak E 1.02 m/sec -- -- E/e', med zuly, TDI 34 --------- Peak A 0.95 m/sec ---- E', avg, TDI 4.1 cm/sec --------- VTI leaflet coapt 20.8 cm ---- E/e', avg, TDI (H) 25 <=14 Decel time 120 ms -- -- PHT 54 ms ---- LVOT Value Ref Mean grad, D 2.0 mm Hg ---- Peak marvin, S 0.72 m/sec --------- Peak grad, D 3.6 mm Hg ---- VTI, S 13.8 cm --------- Peak E/A ratio 1.08 ---- Peak grad, S 2 mm Hg --------- MVA, PHT 4.1 cm^2 ---- Mean grad, S 1 mm Hg --------- MR peak v 6.11 m/sec ---- ERO, PISA 0.2 cm^2 ---- Ventricular septum Value Ref MR vol, PISA 37 ml ---- IVS, ED (H) 1.2 cm 0.6 - 1.0 Pulmonic valve Value Ref Right ventricle Value Ref Peak v, S 0.85 m/sec ---- YISSEL, LAX 3.1 cm --------- Peak grad, S 2.9 mm Hg ---- YISSEL major ax, A4C (L) 2.9 cm 5.9 - 8.3 Aortic root Value Ref Left atrium Value Ref Root diam 2.1 cm <4.3 LA ID 4.4 cm --------- ML dim, A4C 5.0 cm --------- Ascending aorta Value Ref SI dim, A4C 5.6 cm --------- AAo AP diam, S 2.4 cm ---- Vol/bsa, ES, 2-p (H) 38 ml/m^2 16 - 34 AAo AP diam/bsa, S 1.1 cm/m^2 ---- Right atrium Value Ref Decending aorta Value Ref SI dim, ES 4.6 cm 3.4 - 5.3 Geovanny peak marvin 0.53 m/sec ---- ML dim, ES, A4C 3.8 cm 2.6 - 4.4 Estimated RAP 8 mm Hg --------- Legend: (L) and (H) ruben values outside specified reference range. Prepared and electronically signed by Judy Velasco MD 04/09/2019 16:28
[2019-04-09] MEDS ORDERED: nitroGLYCERIN DRIP* 25,000 MCG/250 ML BTL ONE (16:47)
[2019-04-09] MEDS ORDERED: Metoprolol Tartrate IV* 1 MG/ML 5 ML VIAL IV ONE (16:56)
[2019-04-09] MEDS ORDERED: nitroGLYCERIN DRIP* 25,000 MCG/250 ML BTL IV SCH (17:00)
[2019-04-09] MEDS ORDERED: Metoprolol Tartrate IV* 1 MG/ML 5 ML VIAL ONE (17:02)
--- NOTE | 2019-04-09 17:19 | CONSULT ---
Consult Consult: Consultation Note -- Critical Care Requesting Physician: Reason for consult: GI bleed and NSTEMI Limitations in history/physical: none Date of consult: 04/09/2019 HPI: 73y M w/pmhx of CAD/CABG 2000, DM, PVD, myelodysplasia, AVM, h/o lower GI bleeding, HLD, COPD; recent hospital admission for GI bleed requiring PRBC transfusion; presented to ER 04/08 with complaints of blood in stool x 1 day. Also complaints of abdominal pain, no n/v. Admitted with a hg of 6.2, given 2 prbc overnight, to hg of 9.2. GI workup started and planned for colonoscopy. Started to continue having bleeding, then developed chest pain, with increasing troponins from 2 to 4, and EKG changes consistent with anterior wall ST depressions. Being transfused 1 unit PRBC now, additional one pending. Last bowel movement was bloody and about 1-2 hours back. He is currently in bed, chest pain is better, had NTG sublingual and morphine IV with minimal improvement. He is in no distress, not diaphoretic. Denied n/v/abd pain now. Current HR 100 sinus, BP 180-190s/100s. ED/floor Course: as above ROS: negative except for pertinent positives mentioned above PMHx: CAD/CABG 2000, DM, PVD, myelodysplasia, AVM, h/o lower GI bleeding, HLD, COPD , h/o C.diff infection PSHx: CABG 2000 at [facility], Right leg stent 03/2014, Bypass Right leg 02/2014 [facility], Back surgery 2011 [facility], SMA stent? Family History: none significant Social History: Alcohol-none, Smoking- ppd x50 yrs, Drug use-none Allergies: Allergies Allergy/AdvReac Type Severity Reaction Status Date / Time ELROY Inhibitors Allergy Unknown Verified 04/08/19 13:46 Reaction Details atorvastatin [From Lipitor] Allergy Unknown Verified 04/08/19 13:46 Reaction Details bupropion Allergy Unknown Verified 04/08/19 13:46 Reaction Details gemfibrozil Allergy Unknown Verified 04/08/19 13:46 Reaction Details metformin Allergy Unknown Verified 04/08/19 13:46 Reaction Details nicotine Allergy Unknown Verified 04/08/19 13:46 Reaction Details rosuvastatin Allergy Unknown Verified 04/08/19 13:46 Reaction Details Home Medications: Cholecalciferol TAB* [Vitamin D TAB*] 1,000 unit PO QAM 02/08/15 [History Confirmed 04/08/19] Cyanocobalamin TAB* [Vitamin B12 TAB*] 1 tab PO DAILY 02/08/15 [History Confirmed 04/08/19] Insulin Aspart [Novolog Flexpen] 10 unit SC TID 02/08/15 [History Confirmed 05/17] Multivitamins/Minerals TAB* [Thera M Plus TAB*] 1 tab PO DAILY 02/08/15 [ History Confirmed 04/08/19] Topiramate TAB(*) [Topamax 25 MG tab] 150 mg PO BEDTIME 02/08/15 [History Confirmed 04/08/19] Folic Acid TAB* [Folvite TAB*] 1 mg PO DAILY 10/04/17 [History Confirmed ] Isosorbide Mononitrate [Isosorbide Mononitrate ER] 120 mg PO QAM 03/29/19 [ History Confirmed 04/08/19] Nitroglycerin TAB 0.4 MG* 0.4 mg SL Q5M PRN 03/29/19 [History Confirmed 04/08/19 ] Rabeprazole Sodium 20 mg PO BID 03/29/19 [History Confirmed 04/08/19] Aspirin EC TAB* [Ecotrin EC Low Dose 81 MG*] 81 mg PO DAILY 04/08/19 [History Confirmed 04/08/19] Carvedilol TAB NF [Coreg TAB NF] 6.25 mg PO BID 04/08/19 [History Confirmed 05/17] Hydrocortisone Acetate [Hemmorex-Hc] [address] DAILY 04/08/19 [History Confirmed 04/08/19] Insulin GLARGINE(*) [Lantus(*)] 20 units SUBCUT BEDTIME 04/08/19 [History Confirmed 04/08/19] Losartan TAB* [Cozaar TAB*] 50 mg PO QPM 04/08/19 [History Confirmed 04/08/19] Ondansetron TAB* [Zofran 4 MG Tab*] 4 mg PO Q12HR PRN 04/08/19 [History Confirmed 04/08/19] Polyethylene Glycol 3350* [Miralax*] 17 gm PO DAILY PRN 04/08/19 [History Confirmed 04/08/19] Ranitidine TAB (NF) [Zantac TAB (NF)] 300 mg PO DAILY 04/08/19 [History Confirmed 04/08/19] Sennosides/Docusate Sodium [Docusate Sodium-Sennosides Tab] 2 each PO QAM [History Confirmed 04/08/19] Sertraline* [Zoloft*] 150 mg PO BEDTIME 04/08/19 [History Confirmed 04/08/19] Simethicone TAB* [Mylicon TAB*] 80 mg PO ACHS PRN 04/08/19 [History Confirmed ] oxyCODONE/Acetamin 5/325 MG* [Percocet 5/325 TAB*] 1 tab PO Q8H PRN 04/08/19 [ History Confirmed 04/08/19] Tele: Sinus tachycardia Vitals: Vital Signs Temp 97.9 F 04/09/19 16:42 Pulse 99 04/09/19 16:42 Resp 18 04/09/19 16:49 BP 171/96 04/09/19 16:42 Pulse Ox 100 04/09/19 16:42 Intake & Output 04/08/19 04/09/19 04/09/19 18:59 06:59 18:59 Intake Total 1636 0 Output Total 420 Balance 1636 -420 Weight 93.621 kg Intake: IV Fluids 765 Blood 300 NS 465 Oral 240 0 Packed Cells 631 Output: Urine 420 Other: # Bowel Movements 0 3 Estimated Stool Amount Large Small # Voids 1 O2/Vent: RA Infusions: PRBC transfusing; NTG to be started Current Medications: Carvedilol (Coreg Tab*) 6.25 mg PO BID [facility] Last Admin: 04/09/19 07:22 Dose: 6.25 mg Dextrose (Dextrose 50% Vial 50 Ml*) 25 ml IV PUSH .FOR FS < 60 - SS PRN PRN Reason: FS < 60 Lactated Ringer's (Lactated Ringers 1000 Ml Bag*) 1,000 mls @ 75 mls/hr IV PER RATE JEANMARIE Nitroglycerin/Dextrose (Nitroglycerin Drip*) 25,000 mcg in 250 mls @ 12 mls/hr IV .(Initial Rate) [facility]; Protocol Last Admin: 04/09/19 16:55 Dose: 12 mls/hr Insulin Human Lispro (Humalog*) 0 units SUBCUT ACHS [facility]; Protocol Last Admin: 04/09/19 11:40 Dose: Not Given Isosorbide Mononitrate (Imdur Er Tab*) 120 mg PO QAM [facility] Last Admin: 04/09/19 07:22 Dose: 120 mg Morphine Sulfate (Morphine Inj (Syringe))*) 2 mg IV Q2H PRN PRN Reason: PAIN - SEVERE Nitroglycerin (Nitroglycerin Tab 0.4 Mg*) 0.4 mg SL Q5M PRN PRN Reason: ANGINA Last Admin: 04/09/19 14:19 Dose: 0.4 mg Ondansetron HCl (Zofran Tab*) 4 mg PO Q12HR PRN PRN Reason: INDIGESTION Oxycodone/Acetaminophen (Percocet 5/325 Tab*) 1 tab PO Q8H PRN PRN Reason: PAIN - MODERATE Last Admin: 04/09/19 01:15 Dose: 1 tab Pantoprazole Sodium (Protonix Tab*) 40 mg PO BID [facility]; Protocol Last Admin: 04/09/19 07:22 Dose: 40 mg Sertraline HCl (Zoloft*) 150 mg PO BEDTIME [facility] Last Admin: 04/08/19 21:45 Dose: 150 mg Topiramate (Topamax(*)) 150 mg PO BEDTIME [facility] Last Admin: 04/08/19 21:45 Dose: 150 mg Physical Exam: Constitutional: awake, alert, no distress, no diaphoresis Head: normocephalic, atraumatic Eyes: +pallor, no icterus ENT: moist mucous membranes Neck: soft, supple, no jvd, no stridor CVS: normal rate, regular, no murmur Chest/Resp: bilateral air entry, no rhales, no wheeze, no rhonchi, no acc muscle use Abdomen/GI: soft, nontender, nondistended, BS+ Ext/Msk: warm, pulses+, 2+ edema Skin: intact, warm Neuro: awake, alert, orientedx3, moving all extremities, no gross focal deficit Psych: normal affect Labs: Laboratory Results - last 24 hr 04/08/19 04/09/19 04/09/19 22:12 02:24 05:25 WBC RBC Hgb 8.4 L Hct 25 L MCV MCH MCHC RDW Plt Count MPV Neut % (Auto) Lymph % (Auto) Garvin % (Auto) Eos % (Auto) Baso % (Auto) Absolute Neuts (auto) Absolute Lymphs (auto) Absolute Monos (auto) Absolute Eos (auto) Absolute Basos (auto) Absolute Nucleated RBC Nucleated RBC % Sodium 140 Potassium 4.2 Chloride 117 H Carbon Dioxide 19 L Anion Gap 4 BUN 31 H Creatinine 1.17 Est GFR ( Amer) 73.9 Est GFR (Non-Af Amer) 61.1 BUN/Creatinine Ratio 26.5 H Glucose 183 H POC Glucose (mg/dL) 262 H Calcium 7.5 L Magnesium 2.1 CK-MB (CK-2) Troponin I 2.31 H* Blood Type Antibody Screen Crossmatch 04/09/19 04/09/19 04/09/19 05:25 06:52 07:15 WBC 6.9 RBC 2.82 L Hgb 7.5 L 7.2 L Hct 23 L 22 L MCV 80 MCH 27 MCHC 34 RDW 21 H Plt Count 134 L MPV 8.1 Neut % (Auto) 80.7 Lymph % (Auto) 14.5 Garvin % (Auto) 4.2 Eos % (Auto) 0.0 Baso % (Auto) 0.6 Absolute Neuts (auto) 5.6 Absolute Lymphs (auto) 1.0 Absolute Monos (auto) 0.3 Absolute Eos (auto) 0.0 Absolute Basos (auto) 0.0 Absolute Nucleated RBC 0.0 Nucleated RBC % 0.0 Sodium Potassium Chloride Carbon Dioxide Anion Gap BUN Creatinine Est GFR ( Amer) Est GFR (Non-Af Amer) BUN/Creatinine Ratio Glucose POC Glucose (mg/dL) 163 H Calcium Magnesium CK-MB (CK-2) Troponin I Blood Type Antibody Screen Crossmatch 04/09/19 04/09/19 04/09/19 07:15 11:05 12:32 WBC RBC Hgb Hct MCV MCH MCHC RDW Plt Count MPV Neut % (Auto) Lymph % (Auto) Garvin % (Auto) Eos % (Auto) Baso % (Auto) Absolute Neuts (auto) Absolute Lymphs (auto) Absolute Monos (auto) Absolute Eos (auto) Absolute Basos (auto) Absolute Nucleated RBC Nucleated RBC % Sodium Potassium Chloride Carbon Dioxide Anion Gap BUN Creatinine Est GFR ( Amer) Est GFR (Non-Af Amer) BUN/Creatinine Ratio Glucose POC Glucose (mg/dL) 119 H Calcium Magnesium CK-MB (CK-2) 21.0 H Troponin I 4.54 H* Blood Type B Positive Antibody Screen Negative Crossmatch See Detail Imaging: TTE 04/09 - LVEF 40-45% with inferior and inferoseptal WMA, reviewed report Assessment: 73y M w/pmhx of CAD/CABG 2000, DM, PVD, myelodysplasia, AVM, h/o lower GI bleeding, HLD, COPD; recent hospital admission for GI bleed requiring PRBC transfusion; presented to ER 04/08 with complaints of blood in stool x 1 day. Also complaints of abdominal pain, no n/v. Admitted with a hg of 6.2, given 2 prbc overnight, to hg of 9.2. GI workup started and planned for colonoscopy. Started to continue having bleeding, then developed chest pain, with increasing troponins from 2 to 4, and EKG changes consistent with anterior wall ST depressions. Being transfused 1 unit PRBC now, additional one pending. Last bowel movement was bloody and about 1-2 hours back. He is currently in bed , chest pain is better, had NTG sublingual and morphine IV with minimal improvement. -Acute lower GI hemorrhage suspected -Acute blood loss anemia -NSTEMI -Hypertensive urgency chronic LV systolic dysfunction CAD/CABG Myelodysplasia Plan: Neuro- -awake, alert -Delirium prec; avoid BDZ CVS- -NSTEMI+, suspect new ACS in setting of acute blood loss/GIB, may be demand + no type 1 event -given GIB, unable to administer antiplatelets or AC; Cardiac cath at this time would not be benificial; will conservatively treat NSTEMI with rate/BP control, vasodilators and PRBC transfusions. -transfuse to keep hg>8 -dec LR 50cc/hr -NTG infusion, titrate to Chest pain and SBP <150 -lopressor 5mg IV x1 now -morphine IV prn for chest pain -shmuel troponins -cont coreg po bid, imdur daily -transfuse prbc over 2 hours each; history of mild lv systolic dysfunction, some signs of overload; prn lasix as needed also -Maintain MAP>65 Resp- -no resp distress noted -Wean Fio2 to keep sat>92% -aspiration prec ID- afebrile. wbc normal. no infection suspected. GI- -GI Bleed; suspected lower as source -on sucralfate and PPI PO -transfuse 2 prbc now; goal >8 -plan for possible colonoscopy tonight; noted previous history of colonoscopies in past and workup at outside hospitals ([facility] and [facility]) but no clear source identified for bleeding -may consider octreotide infusion if continued bleeding once chest pain improved if we suspect further AVMs as cause, this may help to constrict GI track and slow down, but unclear how it may affect active ACS, will re-eval after PRBC given and EKG changes/chest pain improved. -keep NPO Renal- -strict I/O, replete to keep K>4, Mg>2 -lynn as indicated Heme- -acute blood loss 2/2 to GIB; NSTEMI+; transfuse to keep hg>8 -for 2 more prbc now; 2 already given / night -no antiplatelets or AC Endo- Maintain BG<200, insulin protocol as needed Musculsk- pressure ulcer prophylaxis. Bedrest. Wounds- none Nutrition- NPO DVT prophylaxis: SCD, no AC GI prophylaxis: ppi Central Line: no Arterial Line: no Lynn Cathetor: no Disposition: Patient requires Critical Care/ICU for GIB, NSTEMI Patient Clinical Status: guarded, critical Code Status: full code Total Critical Care time is 45 minutes, excluding procedures/teaching Edison Markham MD Senior Research Scientist (Electronically Signed)
[2019-04-09 17:25] LABS: Troponin I 2.68 ng/mL (<0.04)
--- NOTE | 2019-04-09 17:31 | PN ---
Subjective Date of Service: 04/09/19 Interval History: Episode of exertional chest pain in the overnight when walking to bathroom which subsided with rest. Initially denied chest/abdominal pain, shortness of breath, nausea, vomiting or passing any stools this AM. Around 1330, patient developed 8/10 anginal pain, trops elevated. Pain did not respond to IV morphine , nitro SL or paste, GI cocktail, IV lorazepam. Patient pale, mentating, able to respond to questions appropriately, though appeared unfocused. Spoke with Dr. Markham, patient transferred to the ICU under his service. Family History: Unchanged from Admission Social History: Unchanged from Admission Past Medical History: Unchanged from Admission Objective Active Medications: Carvedilol (Coreg Tab*) 6.25 mg PO BID [facility] Last Admin: 04/09/19 07:22 Dose: 6.25 mg Dextrose (Dextrose 50% Vial 50 Ml*) 25 ml IV PUSH .FOR FS < 60 - SS PRN PRN Reason: FS < 60 Lactated Ringer's (Lactated Ringers 1000 Ml Bag*) 1,000 mls @ 75 mls/hr IV PER RATE [facility] Nitroglycerin/Dextrose (Nitroglycerin Drip*) 25,000 mcg in 250 mls @ 0 mls/hr IV .(Initial Rate) [facility]; Protocol Last Admin: 04/09/19 16:55 Dose: 12 mls/hr Insulin Human Lispro (Humalog*) 0 units SUBCUT ACHS [facility]; Protocol Last Admin: 04/09/19 11:40 Dose: Not Given Isosorbide Mononitrate (Imdur Er Tab*) 120 mg PO QAM [facility] Last Admin: 04/09/19 07:22 Dose: 120 mg Morphine Sulfate (Morphine Inj (Syringe))*) 2 mg IV Q2H PRN PRN Reason: PAIN - SEVERE Nitroglycerin (Nitroglycerin Tab 0.4 Mg*) 0.4 mg SL Q5M PRN PRN Reason: ANGINA Last Admin: 04/09/19 14:19 Dose: 0.4 mg Ondansetron HCl (Zofran Tab*) 4 mg PO Q12HR PRN PRN Reason: INDIGESTION Oxycodone/Acetaminophen (Percocet 5/325 Tab*) 1 tab PO Q8H PRN PRN Reason: PAIN - MODERATE Last Admin: 04/09/19 01:15 Dose: 1 tab Pantoprazole Sodium (Protonix Tab*) 40 mg PO BID [facility]; Protocol Last Admin: 04/09/19 07:22 Dose: 40 mg Sertraline HCl (Zoloft*) 150 mg PO BEDTIME [facility] Last Admin: 04/08/19 21:45 Dose: 150 mg Topiramate (Topamax(*)) 150 mg PO BEDTIME [facility] Last Admin: 04/08/19 21:45 Dose: 150 mg Vital Signs - 8 hr 04/09/19 04/09/19 04/09/19 11:15 13:40 14:10 Temperature 98.3 F 98 F Pulse Rate 86 85 Respiratory 18 18 16 Rate Blood Pressure 144/68 146/70 (mmHg) O2 Sat by Pulse 96 100 Oximetry 04/09/19 04/09/19 04/09/19 14:15 14:21 14:30 Temperature 98 F Pulse Rate 86 85 90 Respiratory 16 Rate Blood Pressure 168/75 146/70 163/78 (mmHg) O2 Sat by Pulse 100 Oximetry 04/09/19 04/09/19 04/09/19 14:33 14:45 14:51 Temperature Pulse Rate 90 94 Respiratory 18 Rate Blood Pressure 151/80 160/74 (mmHg) O2 Sat by Pulse Oximetry 04/09/19 04/09/19 04/09/19 15:03 16:20 16:42 Temperature 97.9 F Pulse Rate 97 99 Respiratory 18 13 Rate Blood Pressure 174/85 171/96 (mmHg) O2 Sat by Pulse 100 100 Oximetry 04/09/19 16:49 Temperature Pulse Rate Respiratory 18 Rate Blood Pressure (mmHg) O2 Sat by Pulse Oximetry Oxygen Devices in Use Now: Nasal Cannula Appearance: Pale, unfocused. Appears unwell. Eyes: No Scleral Icterus, PERRLA, - - Pale conjunctiva Ears/Nose/Mouth/Throat: Clear Oropharnyx, Mucous Membranes Moist Neck: NL Appearance and Movements; NL JVP, Trachea Midline Respiratory: Symmetrical Chest Expansion and Respiratory Effort, Clear to Auscultation Cardiovascular: NL Sounds; No Murmurs; No JVD, No Edema, - - HR irregular Abdominal: - - Abdomen softly distended, tender to lower quadrants, normoactive +BSx4. Lymphatic: No Cervical Adenopathy Extremities: No Edema, No Clubbing, Cyanosis Skin: No Rash or Ulcers, No Nodules or Sclerosis Neurological: Alert and Oriented x 3, NL Sensation Lines/Tubes/Other Access: Clean, Dry and Intact Peripheral IV Result Diagrams: 04/13/19 06:00 04/13/19 06:00 Microbiology and Other Data: Microbiology 04/08/19 20:55 Stool Occult Blood (IMTIAZ) - Final Stool EKG Data: EKG showed LBBB with ST changes. Assess/Plan/Problems-Billing Assessment: This is a 73yo male with a PMH significant for previous LA, SMA stenting, PVD, and GI bleed who presented to the emergency room on 04/08/19 with rectal bleeding. Patient subsequently developed NSTEMI secondary to anemia. - Patient Problems (1) NSTEMI (non-ST elevated myocardial infarction) Current Visit: Yes Status: Acute Onset Date: 04/09/19 Code(s): I21.4 - NON -ST ELEVATION (NSTEMI) MYOCARDIAL INFARCTION SNOMED Code(s): 29852424 Comment: -Episodic chest pain in the overnight. EKG revealed LBBB with ST changes. Trops 2.54 that increased to 4.54. Chest pain unrelieved with SL and topical nitrates, morphine, GI cocktail, and IV lorazepam. Cardiology consulted. Metoprolol PO x1 in addition to carvidelol. NSTEMI felt to be secondary to anemia, two units of blood ordered. Transferred to ICU for persistent chest pain, spoke with Dr. Markham. (2) Lower GI bleed Current Visit: No Status: Acute Code(s): K92.2 - GASTROINTESTINAL HEMORRHAGE , UNSPECIFIED SNOMED Code(s): 19287597 Comment: - Acute on chronic anemia due to acute lower GI bleed with Hgb down to 6.2/18 on 04/08/19. Received two units of blood yesterday with a transfusion reaction. Today, 7.2/22, ordered another two units of PRBC. -Given concomitant myelodysplastic syndrome, ischemic heart disease and hematology goal of Hgb ~ 9, plan for one unit PRBC prior to discharge. - Has 1 year h/o GIB with multiple colonoscopies. Records obtained: last colonoscopy October 2017 revealed AVM, likely source - GI consult appreciated, to undergo colonoscopy later today. Dr. Velasco felt it appropriate to procede with procedure despite current cardiac status. (3) YESSENIA (acute kidney injury) Current Visit: No Status: Acute Code(s): N17.9 - ACUTE KIDNEY FAILURE, UNSPECIFIED SNOMED Code(s): 61528840 Comment: - Resolved, likely 2/2 decreased renal perfusion in light of acute blood loss anemia -Hold losartan (4) CAD (coronary artery disease) Current Visit: No Status: Acute Code(s): I25.10 - ATHSCL HEART DISEASE OF [place] CORONARY ARTERY W/O ANG PCTRS SNOMED Code(s): 14295294 Comment: - Continue carvedilol Hold any antiplatelets/anticoags due to active bleeding. (5) Metabolic acidosis Current Visit: Yes Status: Acute Code(s): E87.2 - ACIDOSIS SNOMED Code(s) : 60008927 Comment: Mild, switched IV fluids from NS to LR (6) CKD (chronic kidney disease) Current Visit: No Status: Acute Code(s): N18.9 - CHRONIC KIDNEY DISEASE, UNSPECIFIED SNOMED Code(s): 609557451 Comment: Creatinine slightly elevated above baseline, likely due to anemia. Will monitor. (7) Diabetes mellitus Current Visit: No Status: Acute Code(s): E11.9 - TYPE 2 DIABETES MELLITUS WITHOUT COMPLICATIONS SNOMED Code(s): 99257130 Comment: -ACHS blood glucose with sliding scale (8) GERD (gastroesophageal reflux disease) Current Visit: No Status: Acute Code(s): K21.9 - GASTRO-ESOPHAGEAL REFLUX DISEASE WITHOUT ESOPHAGITIS SNOMED Code(s): 170788538 Comment: - Pantoprazole 40mg BID (9) Myelodysplasia (myelodysplastic syndrome) Current Visit: No Status: Acute Code(s): D46.9 - MYELODYSPLASTIC SYNDROME, UNSPECIFIED SNOMED Code(s): 934046149 Comment: - Outpatient plan is weekly CBC, Fe and transfuse as necessary for hgb<9, low iron - Continue supportive care (10) DVT prophylaxis Current Visit: No Status: Acute Code(s): Z29.9 - ENCOUNTER FOR PROPHYLACTIC MEASURES, UNSPECIFIED SNOMED Code(s): 385794534 Comment: - SCDs only, high risk in presence of GIB (11) Full code status Current Visit: No Status: Acute Code(s): Z78.9 - OTHER SPECIFIED HEALTH STATUS SNOMED Code(s): 644522273 Comment: Status and Disposition: Status: Critical Disposition: Inpatient, transfer to care of Dr. Markham in the ICU. Counseling and/or Coordination of Care Minutes: Time spent on patient 90 minutes , 40 minutes spent face to face. Attending: Unique Michaud
--- NOTE | 2019-04-09 18:25 | PN ---
Progress Note - Progress Note Date of Service: 04/09/19 Note: BRIEF GI NOTE Patient had maroon stools overnight. H/H relatively stable earlier this morning (Hct 23 > 22). Started Golytely prep and had number of bowel movements which contained blood and mucous. The stool output eventually became more brown, per patient's . No bowel movements this afternoon. Started having chest pain. Noted to have ST segment depressions and elevated troponin (2.3 > 4.5). On interview, Mr Rosado continues to report chest pain. No abdominal pain. Patient being transferred to ICU. Discussed case with cardiology (Dr Velasco) and ICU (Dr Markham). Patient having acute on chronic GI bleeding. Bleeding appears to be slowing down vs stopping at present. No plan for colonoscopy in setting of active cardiac ischemia ( severe chest pain, acute EKG findings, and rising troponin). Would recommend transfusion to Hgb >8 and management of cardiac disease. Would consider colonoscopy for evaluation of bleeding source when clinically improved. - Monitor CBC every 8 hours. Please update now. - Transfuse for Hgb <8. - Clear diet as tolerated. - Continue to monitor stool output GI will continue to follow. Please call with any acute clinical change.
[2019-04-09] MEDS: Sertraline* 50 MG TAB PO SCH (21:26)
[2019-04-09] MEDS: Topiramate TAB(*) 25 MG PO SCH (21:27)
[2019-04-09] MEDS: Lactated Ringers 1000 ML Bag* 1,000 ML IV SCH (21:28)
[2019-04-09 22:17] LABS: Hematocrit 26 % (42-52); Hemoglobin 8.6 g/dL (14.0-18.0)
[2019-04-09 22:42] LABS: Troponin I 25.78 ng/mL (<0.04)
[2019-04-10] MEDS: Metoprolol Tartrate TAB* 25 MG PO SCH ×3 (00:53→22:11)
[2019-04-10 04:43] LABS: Hematocrit 28 % (42-52); Hemoglobin 9.4 g/dL (14.0-18.0); Mean Corpuscular HGB Conc 34 g/dL (31-36); Mean Corpuscular Hemoglobin 27 pg (27-31); Mean Corpuscular Volume 81 fL (80-94); Mean Platelet Volume 7.6 fL (7.4-10.4); Platelet Count 131 10^3/uL (150-450); Red Blood Count 3.46 10^6 /uL (4.18-5.48); Red Cell Distribution Width 19 % (10-15); White Blood Count 8.9 10^3/uL (3.5-10.8)
[2019-04-10 05:06] LABS: ALT 18 U/L (7-52); AST 110 U/L (13-39); Albumin 2.9 g/dL (3.2-5.2); Albumin/Globulin Ratio 1.9 (1-3); Alkaline Phosphatase 45 U/L (34-104); BUN/Creatinine Ratio 23.3 (8-20); Blood Urea Nitrogen 27 mg/dL (6-24); CO2 Carbon Dioxide 20 mmol/L (22-32); Calcium 7.3 mg/dL (8.6-10.3); Cholesterol 119 mg/dL; EGFR African American 74.7 (>60); EGFR Non-African American 61.7 (>60); Globulin 1.5 g/dL (2-4); Glucose 129 mg/dL (70-100); HDL Cholesterol 19.7 mg/dL; LDL Cholesterol 51 mg/dL; Phosphorus 2.5 mg/dL (2.5-5.0); Potassium 3.9 mmol/L (3.5-5.0); Sodium 139 mmol/L (135-145); Total Protein 4.4 g/dL (6.4-8.9); Triglycerides 240 mg/dL
[2019-04-10 05:11] LABS: Anion Gap 4 mmol/L (2-11); Chloride 115 mmol/L (101-111); Troponin I 38.14 ng/mL (<0.04)
[2019-04-10] MEDS: Insulin LISPRO* 1 UNITS UNIT SUBCUT SCH ×4 (08:29→22:10)
[2019-04-10] MEDS: Pantoprazole TAB * 40 MG TAB PO SCH ×2 (08:44→22:11)
[2019-04-10] MEDS: Isosorbide Mononitrate ER TAB* 60 MG PO SCH (08:44)
[2019-04-10] MEDS: nitroGLYCERIN DRIP* 25,000 MCG/250 ML BTL IV SCH ×2 (09:30→18:51)
[2019-04-10 10:38] LABS: Hematocrit 27 % (42-52); Hemoglobin 9.2 g/dL (14.0-18.0)
[2019-04-10 11:23] LABS: Troponin I 30.16 ng/mL (<0.04)
--- NOTE | 2019-04-10 12:34 | PN ---
Progress Note - Progress Note Date of Service: 04/10/19 Note: Progress Note -- Critical Care 24 hour events -no sig events ovenright -total fo 3 prbc over past 24 hours again -intermittent chest pain; on NTF infusion -lopressor PO now -afebrile, no resp distress Tele: Sinus link 50s Vitals: Vital Signs Temp 98.9 F 04/10/19 11:45 Pulse 53 04/10/19 11:45 Resp 22 04/10/19 11:45 BP 128/59 04/10/19 11:45 Pulse Ox 98 04/10/19 11:45 Intake & Output 04/09/19 04/10/19 04/10/19 18:59 06:59 18:59 Intake Total 0 1279 Output Total 420 400 0 Balance -420 879 0 Weight 93.7 kg Intake: IV Fluids 505 LR 440 NS 65 Medicated IV 184 Nitro 184 Oral 0 Packed Cells 590 Output: Urine 420 400 0 Other: Estimated Void Medium # Bowel Movements 3 Estimated Stool Amount Small Medium O2/Vent: RA Infusions: NTG infusion Current Medications: Dextrose (Dextrose 50% Vial 50 Ml*) 25 ml IV PUSH .FOR FS < 60 - SS PRN PRN Reason: FS < 60 Lactated Ringer's (Lactated Ringers 1000 Ml Bag*) 1,000 mls @ 50 mls/hr IV PER RATE [facility] Last Admin: 04/09/19 21:28 Dose: 50 mls/hr Nitroglycerin/Dextrose (Nitroglycerin Drip*) 25,000 mcg in 250 mls @ 0 mls/hr IV .(Initial Rate) [facility]; Protocol Last Admin: 04/10/19 09:30 Dose: 27 mls/hr Insulin Human Lispro (Humalog*) 0 units SUBCUT ACHS [facility]; Protocol Last Admin: 04/10/19 12:28 Dose: Not Given Isosorbide Mononitrate (Imdur Er Tab*) 120 mg PO QAM [facility] Last Admin: 04/10/19 08:44 Dose: 120 mg Metoprolol Tartrate (Lopressor Tab*) 25 mg PO BID [facility] Last Admin: 04/10/19 08:43 Dose: 25 mg Morphine Sulfate (Morphine Inj (Syringe))*) 2 mg IV Q2H PRN PRN Reason: PAIN - SEVERE Nitroglycerin (Nitroglycerin Tab 0.4 Mg*) 0.4 mg SL Q5M PRN PRN Reason: ANGINA Last Admin: 04/09/19 14:19 Dose: 0.4 mg Ondansetron HCl (Zofran Tab*) 4 mg PO Q12HR PRN PRN Reason: INDIGESTION Oxycodone/Acetaminophen (Percocet 5/325 Tab*) 1 tab PO Q8H PRN PRN Reason: PAIN - MODERATE Last Admin: 04/09/19 01:15 Dose: 1 tab Pantoprazole Sodium (Protonix Tab*) 40 mg PO BID [facility]; Protocol Last Admin: 04/10/19 08:44 Dose: 40 mg Sertraline HCl (Zoloft*) 150 mg PO BEDTIME [facility] Last Admin: 04/09/19 21:26 Dose: 150 mg Topiramate (Topamax(*)) 150 mg PO BEDTIME [facility] Last Admin: 04/09/19 21:27 Dose: 150 mg Physical Exam: Constitutional: awake, alert, no distress, no diaphoresis Head: normocephalic, atraumatic Eyes: +pallor, no icterus ENT: moist mucous membranes Neck: soft, supple, no jvd, no stridor CVS: normal rate, regular, no murmur Chest/Resp: bilateral air entry, no rhales, no wheeze, no rhonchi, no acc muscle use Abdomen/GI: soft, nontender, nondistended, BS+ Ext/Msk: warm, pulses+, 2+ edema Skin: intact, warm Neuro: awake, alert, orientedx3, moving all extremities, no gross focal deficit Psych: normal affect Labs: Laboratory Results - last 24 hr 04/09/19 04/09/19 04/09/19 05:25 07:15 12:32 WBC RBC Hgb Hct MCV MCH MCHC RDW Plt Count MPV Sodium 140 Potassium 4.2 Chloride 117 H Carbon Dioxide 19 L Anion Gap 4 BUN 31 H Creatinine 1.17 Est GFR ( Amer) 73.9 Est GFR (Non-Af Amer) 61.1 BUN/Creatinine Ratio 26.5 H Glucose 183 H POC Glucose (mg/dL) Calcium 7.5 L Phosphorus Magnesium 2.1 Total Bilirubin Direct Bilirubin Indirect Bilirubin AST ALT Alkaline Phosphatase CK-MB (CK-2) 21.0 H Troponin I 2.31 H* 4.54 H* Total Protein Albumin Globulin Albumin/Globulin Ratio Triglycerides Cholesterol LDL Cholesterol HDL Cholesterol Blood Type B Positive Antibody Screen Negative Crossmatch See Detail 04/09/19 04/09/19 04/09/19 15:27 20:53 22:10 WBC RBC Hgb 8.6 L Hct 26 L MCV MCH MCHC RDW Plt Count MPV Sodium Potassium Chloride Carbon Dioxide Anion Gap BUN Creatinine Est GFR ( Amer) Est GFR (Non-Af Amer) BUN/Creatinine Ratio Glucose POC Glucose (mg/dL) 150 H Calcium Phosphorus Magnesium Total Bilirubin Direct Bilirubin Indirect Bilirubin AST ALT Alkaline Phosphatase CK-MB (CK-2) Troponin I 2.68 H* Total Protein Albumin Globulin Albumin/Globulin Ratio Triglycerides Cholesterol LDL Cholesterol HDL Cholesterol Blood Type Antibody Screen Crossmatch 04/09/19 04/10/19 04/10/19 22:10 04:20 04:20 WBC 8.9 RBC 3.46 L Hgb 9.4 L Hct 28 L MCV 81 MCH 27 MCHC 34 RDW 19 H Plt Count 131 L MPV 7.6 Sodium 139 Potassium 3.9 Chloride 115 H Carbon Dioxide 20 L Anion Gap 4 BUN 27 H Creatinine 1.16 Est GFR ( Amer) 74.7 Est GFR (Non-Af Amer) 61.7 BUN/Creatinine Ratio 23.3 H Glucose 129 H POC Glucose (mg/dL) Calcium 7.3 L Phosphorus 2.5 Magnesium 2.0 Total Bilirubin 0.20 Direct Bilirubin 0.00 L Indirect Bilirubin Flight Teacher AST 110 H ALT 18 Alkaline Phosphatase 45 CK-MB (CK-2) Troponin I 25.78 H* 38.14 H* Total Protein 4.4 L Albumin 2.9 L Globulin 1.5 L Albumin/Globulin Ratio 1.9 Triglycerides 240 Cholesterol 119 LDL Cholesterol 51 HDL Cholesterol 19.7 Blood Type Antibody Screen Crossmatch 04/10/19 04/10/19 04/10/19 07:58 10:23 10:23 WBC RBC Hgb 9.2 L Hct 27 L MCV MCH MCHC RDW Plt Count MPV Sodium Potassium Chloride Carbon Dioxide Anion Gap BUN Creatinine Est GFR ( Amer) Est GFR (Non-Af Amer) BUN/Creatinine Ratio Glucose POC Glucose (mg/dL) 128 H Calcium Phosphorus Magnesium Total Bilirubin Direct Bilirubin Indirect Bilirubin AST ALT Alkaline Phosphatase CK-MB (CK-2) Troponin I 30.16 H* Total Protein Albumin Globulin Albumin/Globulin Ratio Triglycerides Cholesterol LDL Cholesterol HDL Cholesterol Blood Type Antibody Screen Crossmatch 04/10/19 12:15 WBC RBC Hgb Hct MCV MCH MCHC RDW Plt Count MPV Sodium Potassium Chloride Carbon Dioxide Anion Gap BUN Creatinine Est GFR ( Amer) Est GFR (Non-Af Amer) BUN/Creatinine Ratio Glucose POC Glucose (mg/dL) 139 H Calcium Phosphorus Magnesium Total Bilirubin Direct Bilirubin Indirect Bilirubin AST ALT Alkaline Phosphatase CK-MB (CK-2) Troponin I Total Protein Albumin Globulin Albumin/Globulin Ratio Triglycerides Cholesterol LDL Cholesterol HDL Cholesterol Blood Type Antibody Screen Crossmatch Imaging: TTE 04/09 - LVEF 40-45% with inferior and inferoseptal WMA, reviewed report Assessment: 73y M w/pmhx of CAD/CABG 2000, DM, PVD, myelodysplasia, AVM, h/o lower GI bleeding, HLD, COPD; recent hospital admission for GI bleed requiring PRBC transfusion; presented to ER 04/08 with complaints of blood in stool x 1 day. Also complaints of abdominal pain, no n/v. Admitted with a hg of 6.2, given 2 prbc overnight, to hg of 9.2. GI workup started and planned for colonoscopy. Started to continue having bleeding, then developed chest pain, with increasing troponins from 2 to 4, and EKG changes consistent with anterior wall ST depressions. Being transfused 1 unit PRBC now, additional one pending. Last bowel movement was bloody and about 1-2 hours back. He is currently in bed , chest pain is better, had NTG sublingual and morphine IV with minimal improvement. -Acute lower GI hemorrhage suspected -Acute blood loss anemia -NSTEMI -Hypertensive urgency chronic LV systolic dysfunction CAD/CABG Myelodysplasia Plan: Neuro- -awake, alert -Delirium prec; avoid BDZ CVS- -NSTEMI+, new ACS in setting of acute GIB -not a cath candidate due to ongoing GIB still, no clear source identified yet -shmuel troponins; so far peaked to 38, decreasing now; EKGs with anterior depressions but some improvement noted -PRBC transfusion to keep hg>8; hg q8h -maintian NTF for SBP<150 and chest pain -morphine IV prn for chest pain -metoprolol 25mg po bid -LR 50cc/hr -cont coreg po bid, imdur daily -transfuse prbc over 2 hours each; history of mild lv systolic dysfunction, some signs of overload; prn lasix as needed also -Maintain MAP>65 Resp- -no resp distress noted -Wean Fio2 to keep sat>92% -aspiration prec ID- afebrile. wbc normal. no infection suspected. GI- -GI Bleed; suspected lower as source -on sucralfate and PPI PO -goal hg>8 in setting of ACS -plan for possible colonoscopy once stable and chest pain improved; noted previous history of colonoscopies in past and workup at outside hospitals ([facility] and [place]) but no clear source identified for bleeding -may consider octreotide infusion but may increase afterload -keep NPO Renal- -strict I/O, replete to keep K>4, Mg>2 -lynn as indicated Heme- -acute blood loss 2/2 to GIB; NSTEMI+; transfuse to keep hg>8 -sof ar 5 prbc; 2 04/08, 3 04/09 -no antiplatelets or AC Endo- Maintain BG<200, insulin protocol as needed Musculsk- pressure ulcer prophylaxis. Bedrest. Wounds- none Nutrition- NPO DVT prophylaxis: SCD, no AC GI prophylaxis: ppi Central Line: no Arterial Line: no Lynn Cathetor: no Disposition: Patient requires Critical Care/ICU for GIB, NSTEMI Patient Clinical Status: guarded, critical Code Status: full code Edison Markham MD Hand Molder (Electronically Signed)
[2019-04-10 13:55] LABS: Hematocrit 26 % (42-52); Hemoglobin 8.7 g/dL (14.0-18.0)
--- NOTE | 2019-04-10 17:16 | PN ---
Progress Note - Progress Note Date of Service: 04/10/19 Note: GI Progress Note Patient seen and examined. at bedside. No chest pain today. Did have bleeding this am. VS: 138/62, P- 56, R-13, 98%, GEn: alert and oriented x3 Heent: AT/NC, PERRLA, EOMI, no jvp CVS: RRR s1s2 Resp: cta b/l Abd: soft, nt, nd, bs+ Psych: appropriate mood and affect Lab: Hgb 9.2->8.7 Impression: Acute blood loss anemia NSTEMI History of AVMs and Significant [facility] Rec: Complicated case. Discussed with Dr. Velasco and Dr. Markham. If he has AVMs scattered throughout difficult to impossible to predict bleeding risk in future for DAPT. Given still with bleeding and conservative therapy would still entail treating active bleeding will plan on EGD with PUSH enteroscopy and Colonoscopy on 04/11/19 to ablate any AVMs visualized and see if other cause of acute blood loss. No active chest pain at this time. Dr. Velasco recommends beta marck in AM, also continue ASA. Will plan 1/2 goltyte tonight and rest tmrw AM. Sal Bennettan DO 04/10/19 [id number]
[2019-04-10] MEDS ORDERED: PEG 3000 GI LAVAGE* 1 GALLON PO ONE (17:17)
[2019-04-10] MEDS: Lactated Ringers 1000 ML Bag* 1,000 ML IV SCH (17:19)
[2019-04-10 22:04] LABS: Hematocrit 24 % (42-52); Hemoglobin 8.2 g/dL (14.0-18.0)
[2019-04-10] MEDS: Sertraline* 50 MG TAB PO SCH (22:11)
[2019-04-10] MEDS: Topiramate TAB(*) 25 MG PO SCH (22:12)
[2019-04-10] MEDS: oxyCODONE/Acetamin 5/325 MG* TAB PO PRN (22:12)
[2019-04-10 22:25] LABS: Troponin I 14.19 ng/mL (<0.04)
[2019-04-11] MEDS: nitroGLYCERIN DRIP* 25,000 MCG/250 ML BTL IV SCH ×3 (05:26→14:32)
[2019-04-11 06:46] LABS: Hematocrit 27 % (42-52); Hemoglobin 9.2 g/dL (14.0-18.0); Mean Corpuscular HGB Conc 34 g/dL (31-36); Mean Corpuscular Hemoglobin 28 pg (27-31); Mean Corpuscular Volume 82 fL (80-94); Mean Platelet Volume 7.7 fL (7.4-10.4); Platelet Count 134 10^3/uL (150-450); Red Blood Count 3.26 10^6 /uL (4.18-5.48); Red Cell Distribution Width 19 % (10-15); White Blood Count 6.3 10^3/uL (3.5-10.8)
[2019-04-11] MEDS ORDERED: PEG 3000 GI LAVAGE* 1 GALLON PO ONE (07:00)
[2019-04-11 07:02] LABS: BUN/Creatinine Ratio 16.7 (8-20); Calcium 7.5 mg/dL (8.6-10.3); EGFR African American 76.2 (>60); Magnesium 1.7 mg/dL (1.9-2.7); Phosphorus 2.6 mg/dL (2.5-5.0); Potassium 3.7 mmol/L (3.5-5.0)
[2019-04-11] MEDS: Isosorbide Mononitrate ER TAB* 60 MG PO SCH (08:42)
[2019-04-11] MEDS: Metoprolol Tartrate TAB* 25 MG PO SCH ×2 (08:43→20:41)
[2019-04-11] MEDS: Pantoprazole TAB * 40 MG TAB PO SCH ×2 (08:43→20:41)
[2019-04-11] MEDS: Insulin LISPRO* 1 UNITS UNIT SUBCUT SCH ×4 (08:49→20:59)
--- NOTE | 2019-04-11 10:44 | PN ---
Progress Note - Progress Note Date of Service: 04/11/19 SOAP: Subjective: []He is better today. Not having chest pain. still dark stool, breathing is fine. No fevers. Dextrose (Dextrose 50% Vial 50 Ml*) 25 ml IV PUSH .FOR FS < 60 - SS PRN PRN Reason: FS < 60 Lactated Ringer's (Lactated Ringers 1000 Ml Bag*) 1,000 mls @ 50 mls/hr IV PER RATE [facility] Last Admin: 04/10/19 17:19 Dose: 50 mls/hr Nitroglycerin/Dextrose (Nitroglycerin Drip*) 25,000 mcg in 250 mls @ 0 mls/hr IV .(Initial Rate) [facility]; Protocol Last Admin: 04/11/19 05:26 Dose: 24 mls/hr Insulin Human Lispro (Humalog*) 0 units SUBCUT ACHS [facility]; Protocol Last Admin: 04/11/19 08:49 Dose: 2 units Isosorbide Mononitrate (Imdur Er Tab*) 120 mg PO QAM [facility] Last Admin: 04/11/19 08:42 Dose: 120 mg Metoprolol Tartrate (Lopressor Tab*) 25 mg PO BID [facility] Last Admin: 04/11/19 08:43 Dose: 25 mg Morphine Sulfate (Morphine Inj (Syringe))*) 2 mg IV Q2H PRN PRN Reason: PAIN - SEVERE Nitroglycerin (Nitroglycerin Tab 0.4 Mg*) 0.4 mg SL Q5M PRN PRN Reason: ANGINA Last Admin: 04/09/19 14:19 Dose: 0.4 mg Ondansetron HCl (Zofran Tab*) 4 mg PO Q12HR PRN PRN Reason: INDIGESTION Oxycodone/Acetaminophen (Percocet 5/325 Tab*) 1 tab PO Q8H PRN PRN Reason: PAIN - MODERATE Last Admin: 04/10/19 22:12 Dose: 1 tab Pantoprazole Sodium (Protonix Tab*) 40 mg PO BID [facility]; Protocol Last Admin: 04/11/19 08:43 Dose: 40 mg Sertraline HCl (Zoloft*) 150 mg PO BEDTIME [facility] Last Admin: 04/10/19 22:11 Dose: 150 mg Topiramate (Topamax(*)) 150 mg PO BEDTIME [facility] Last Admin: 04/10/19 22:12 Dose: 150 mg Objective: [] Vital Signs Temp Pulse Resp BP Pulse Ox 98 F 51 18 163/63 98 04/11/19 08:00 04/11/19 09:01 04/11/19 10:00 04/11/19 07:30 04/11/19 09:01 HEENT: pale, OM Moist CTA but decreased BS RRR SiS2 +BS distended and obese Ext warm, good pulses AAOx 3 Assessment: []73 yo male with history of intermittent sever anemia that is mulitfactorial. 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 He has had several recent episodes of brisk bleeding and Hgb dropping from 10.0 to < 7.0 in 48 hrs and several admissions despite BIW CBCs and aggressive transfusion protocol as and outpatient. Additional complication of partially occluded venous coronary graft and now demand induced NH from anemia. Plan: []1. Case discussed with GI service - EGD - endoscopy and colonoscopy today wit ablation of AVM as much as possible - Possible follow up complete endoscopy at [facility] for more complete ablation. 2. CAD. Case discussed with Cardiology. - Stable at the time, maintain Hgb > 9.0. - Consideration for second by-pass once stable - Follow Troponin. 3. CRI, stable 4. FEN. Replete K and Mg
[2019-04-11] MEDS ORDERED: fentaNYL* 50 MCG/ML 2 ML VIAL (100 MCG VIAL) ONE (12:31)
[2019-04-11] MEDS ORDERED: Midazolam* 1 MG/ML 10 ML VIAL (10 MG) ONE (12:31)
[2019-04-11] MEDS: Lactated Ringers 1000 ML Bag* 1,000 ML IV SCH (12:46)
[2019-04-11] MEDS ORDERED: Furosemide IV* 10 MG/ML 2 ML VIAL (20 MG) IV ONE (13:08)
--- NOTE | 2019-04-11 13:17 | PN ---
Progress Note - Progress Note Date of Service: 04/11/19 Note: Progress Note -- Critical Care 24 hour events -overnight no sig events -less chest pain; HR 50s, BP stable, on NTG infusion -s/p 1 prbc overnight also -tmax 99.1 Tele: NSR Vitals: Vital Signs Temp 98.2 F 04/11/19 11:47 Pulse 75 04/11/19 13:00 Resp 16 04/11/19 13:00 BP 169/69 04/11/19 12:46 Pulse Ox 92 04/11/19 13:00 Intake & Output 04/10/19 04/11/19 04/11/19 18:59 06:59 18:59 Intake Total 578 1656.7 0 Output Total 375 350 0 Balance 203 1306.7 0 Intake: IV Fluids 400 318 LR 400 258 NS 60 Medicated IV 178 98.7 Nitro 178 98.7 Oral 960 0 Packed Cells 280 0 Output: Urine 375 350 0 Other: Estimated Void Medium Medium Date of Last Bowel 01/09/1904/11 Movement # Bowel Movements 1 1 1 Estimated Stool Amount Medium Medium # Voids 0 1 O2/Vent: 2L Infusions: NTG infusion Current Medications: Dextrose (Dextrose 50% Vial 50 Ml*) 25 ml IV PUSH .FOR FS < 60 - SS PRN PRN Reason: FS < 60 Lactated Ringer's (Lactated Ringers 1000 Ml Bag*) 1,000 mls @ 50 mls/hr IV PER RATE [facility] Last Admin: 04/11/19 12:46 Dose: 50 mls/hr Nitroglycerin/Dextrose (Nitroglycerin Drip*) 25,000 mcg in 250 mls @ 0 mls/hr IV .(Initial Rate) [facility]; Protocol Last Admin: 04/11/19 05:26 Dose: 24 mls/hr Insulin Human Lispro (Humalog*) 0 units SUBCUT ACHS [facility]; Protocol Last Admin: 04/11/19 11:50 Dose: 2 units Isosorbide Mononitrate (Imdur Er Tab*) 120 mg PO QAM [facility] Last Admin: 04/11/19 08:42 Dose: 120 mg Metoprolol Tartrate (Lopressor Tab*) 25 mg PO BID [facility] Last Admin: 04/11/19 08:43 Dose: 25 mg Morphine Sulfate (Morphine Inj (Syringe))*) 2 mg IV Q2H PRN PRN Reason: PAIN - SEVERE Nitroglycerin (Nitroglycerin Tab 0.4 Mg*) 0.4 mg SL Q5M PRN PRN Reason: ANGINA Last Admin: 04/09/19 14:19 Dose: 0.4 mg Ondansetron HCl (Zofran Tab*) 4 mg PO Q12HR PRN PRN Reason: INDIGESTION Oxycodone/Acetaminophen (Percocet 5/325 Tab*) 1 tab PO Q8H PRN PRN Reason: PAIN - MODERATE Last Admin: 04/10/19 22:12 Dose: 1 tab Pantoprazole Sodium (Protonix Tab*) 40 mg PO BID [facility]; Protocol Last Admin: 04/11/19 08:43 Dose: 40 mg Sertraline HCl (Zoloft*) 150 mg PO BEDTIME [facility] Last Admin: 04/10/19 22:11 Dose: 150 mg Topiramate (Topamax(*)) 150 mg PO BEDTIME [facility] Last Admin: 04/10/19 22:12 Dose: 150 mg Physical Exam: Constitutional: awake, alert, no distress, no diaphoresis Head: normocephalic, atraumatic Eyes: +pallor, no icterus ENT: moist mucous membranes Neck: soft, supple, no jvd, no stridor CVS: normal rate, regular, no murmur Chest/Resp: bilateral air entry, no rhales, no wheeze, no rhonchi, no acc muscle use Abdomen/GI: soft, nontender, nondistended, BS+ Ext/Msk: warm, pulses+, 2+ edema Skin: intact, warm Neuro: awake, alert, orientedx3, moving all extremities, no gross focal deficit Psych: normal affect Labs: Laboratory Results - last 24 hr 04/09/19 04/10/19 04/10/19 07:15 13:45 16:51 WBC RBC Hgb 8.7 L Hct 26 L MCV MCH MCHC RDW Plt Count MPV Sodium Potassium Chloride Carbon Dioxide Anion Gap BUN Creatinine Est GFR ( Amer) Est GFR (Non-Af Amer) BUN/Creatinine Ratio Glucose POC Glucose (mg/dL) 128 H Calcium Phosphorus Magnesium Troponin I Blood Type B Positive Antibody Screen Negative Crossmatch See Detail 04/10/19 04/10/19 04/10/19 21:45 21:45 21:49 WBC RBC Hgb 8.2 L Hct 24 L MCV MCH MCHC RDW Plt Count MPV Sodium Potassium Chloride Carbon Dioxide Anion Gap BUN Creatinine Est GFR ( Amer) Est GFR (Non-Af Amer) BUN/Creatinine Ratio Glucose POC Glucose (mg/dL) 186 H Calcium Phosphorus Magnesium Troponin I 14.19 H* Blood Type Antibody Screen Crossmatch 04/11/19 04/11/19 04/11/19 06:20 06:20 08:08 WBC 6.3 RBC 3.26 L Hgb 9.2 L Hct 27 L MCV 82 MCH 28 MCHC 34 RDW 19 H Plt Count 134 L MPV 7.7 Sodium 137 Potassium 3.7 Chloride 112 H Carbon Dioxide 21 L Anion Gap 4 BUN 19 Creatinine 1.14 Est GFR ( Amer) 76.2 Est GFR (Non-Af Amer) 63.0 BUN/Creatinine Ratio 16.7 Glucose 132 H POC Glucose (mg/dL) 138 H Calcium 7.5 L Phosphorus 2.6 Magnesium 1.7 L Troponin I Blood Type Antibody Screen Crossmatch 04/11/19 11:28 WBC RBC Hgb Hct MCV MCH MCHC RDW Plt Count MPV Sodium Potassium Chloride Carbon Dioxide Anion Gap BUN Creatinine Est GFR ( Amer) Est GFR (Non-Af Amer) BUN/Creatinine Ratio Glucose POC Glucose (mg/dL) 140 H Calcium Phosphorus Magnesium Troponin I Blood Type Antibody Screen Crossmatch Imaging: TTE 04/09 - LVEF 40-45% with inferior and inferoseptal WMA, reviewed report Assessment: 73y M w/pmhx of CAD/CABG 1999, DM, PVD, myelodysplasia, AVM, h/o lower GI bleeding, HLD, COPD; recent hospital admission for GI bleed requiring PRBC transfusion; presented to ER 04/08 with complaints of blood in stool x 1 day. Also complaints of abdominal pain, no n/v. Admitted with a hg of 6.2, given 2 prbc overnight, to hg of 9.2. GI workup started and planned for colonoscopy. Started to continue having bleeding, then developed chest pain, with increasing troponins from 2 to 4, and EKG changes consistent with anterior wall ST depressions. Being transfused 1 unit PRBC now, additional one pending. Last bowel movement was bloody and about 1-2 hours back. He is currently in bed , chest pain is better, had NTG sublingual and morphine IV with minimal improvement. -Acute lower GI hemorrhage suspected -Acute blood loss anemia -NSTEMI -Hypertensive urgency chronic LV systolic dysfunction CAD/CABG Myelodysplasia Plan: Neuro- -awake, alert -Delirium prec; avoid BDZ CVS- -NSTEMI+, new ACS in setting of acute GIB; down-trending troponin -not a cath candidate due to ongoing GIB still -minimal/no chest pain; maintain SBP<150; cont NTG, start weaning down -PRBC transfusion to keep hg>8; hg q8h -morphine IV prn for chest pain -metoprolol 25mg po bid -LR 50cc/hr -lasxi 20mg iv x1 today -cont coreg po bid, imdur daily -transfuse prbc over 3 hours each; history of mild lv systolic dysfunction, some signs of overload; prn lasix as needed also -Maintain MAP>65 Resp- -no resp distress noted -Wean Fio2 to keep sat>92% -aspiration prec ID- afebrile. wbc normal. no infection suspected. GI- -GI Bleed; suspected lower as source -on sucralfate and PPI PO -goal hg>8 -for EGD enteroscopy and Colonscopy today -may consider octreotide or somatostatin LAR but may increase afterload - NPO Renal- -strict I/O, replete to keep K>4, Mg>2 -lynn as indicated Heme- -acute blood loss 2/2 to GIB; NSTEMI+; transfuse to keep hg>8 -so far; 2 prbc 04/08, 3 prbc 04/09; 1 prbc 04/10 -no antiplatelets or AC Endo- Maintain BG<200, insulin protocol as needed Musculsk- pressure ulcer prophylaxis. oob to chair Wounds- none Nutrition- NPO DVT prophylaxis: SCD, no AC GI prophylaxis: ppi Central Line: no Arterial Line: no Lynn Cathetor: no Disposition: Patient requires Critical Care/ICU for GIB, NSTEMI Patient Clinical Status: guarded, critical Code Status: full code Edison Markham MD Health Care Law Specialist (Electronically Signed)
[2019-04-11] MEDS ORDERED: Magnesium Sulfate 2 GM IV* 2 GM/50 ML BAG IVPB ONE (14:00)
--- NOTE | 2019-04-11 14:21 | PN ---
Progress Note - Progress Note Date of Service: 04/11/19 Note: EGD and COLONOSCOPY procedures: E--->normal, medium HH G--->normal D--->multiple small petechiae; >50, unable to cauterize/APC Colon---->to TI TI for 10 cm was normal; cecum---> 4 AVMs, non-bleeding, obliterated with APC; 1 avm in prox ascending.....obliterated with APC non-bleeding diverticulosis; no hemorrhoids NO ACTIVE bleeding; LONG discussion with , >30min; pt had capsule at [facility] which showed 3 AVMs; pt has multiple reasons for bleeding/anemia; likely has small bowel sources too; unfortunately, not much we can do about small bowel here; hopefully, the colonic avms were the cause, but.....if he continues to bleed/remain anemic.....will need transfer to [facility] for consideration of dbl balloon enteroscopy; ?too high risk? paged cardiology to ICU to discuss Prosper Perez MD [facility] [phone]
[2019-04-11] MEDS: KCL 20 MEQ/100 ML IVPREMIX* 20 MEQ/100 ML BAG IV SCH ×2 (14:39→16:55)
[2019-04-11 15:19] LABS: Hematocrit 28 % (42-52); Hemoglobin 9.4 g/dL (14.0-18.0)
[2019-04-11] MEDS: Topiramate TAB(*) 25 MG PO SCH (20:41)
[2019-04-11] MEDS: Sertraline* 50 MG TAB PO SCH (20:41)
[2019-04-11 21:05] LABS: ABS Eosinophils 0.2 10^3/ul (0-0.6); ABS Lymphocytes 0.9 10^3/ul (1.0-4.8); ABS Monocytes 0.4 10^3/ul (0-0.8); ABS Neutrophils 3.8 10^3/ul (1.5-7.7); Eosinophil % 3.1 %; Lymphocyte % 17.4 %; Mean Corpuscular HGB Conc 34 g/dL (31-36); Mean Corpuscular Hemoglobin 28 pg (27-31); Mean Corpuscular Volume 82 fL (80-94); Mean Platelet Volume 7.9 fL (7.4-10.4); Nucleated Red Blood Cells % 0.1; Platelet Count 145 10^3/uL (150-450); Red Blood Count 3.35 10^6 /uL (4.18-5.48); Red Cell Distribution Width 19 % (10-15); White Blood Count 5.4 10^3/uL (3.5-10.8)
--- NOTE | 2019-04-11 21:33 | PRO ---
DATE OF PROCEDURE: 04/11/19 - ROOM #431 PROCEDURE: EGD and colonoscopy. INDICATION: Hemorrhage of rectum and anus, anemia. MEDICATIONS GIVEN: 50 mcg IV fentanyl, 6 mg IV Versed. PROCEDURE LOCATION: Intensive care unit, bed 5. DESCRIPTION OF PROCEDURE: After the EGD and colonoscopy procedures including the risks, benefits, and alternatives, not limited to perforation, surgery, and/ or and/or cardiovascular problems were explained to the patient and his , written consent was then obtained. The patient has been seen by Cardiology and Cardiology for the past 2 days has recommended that the patient is stable enough to undergo these procedures. IV sedation was given and an Olympus gastroscope was then inserted into the patient's mouth and advanced down the esophagus, into the stomach, into the distal duodenum. In the esophagus, at the GE junction, the Z- line was intact. No erosive esophagitis, stricture, or ring was seen. Scope was advanced through a medium-sized hiatal hernia into the body of the stomach. Retroflex view was unremarkable. Forward view was also unremarkable. No bleeding sites were seen. Scope was advanced through a widely patent pylorus into the duodenal bulb. It was somewhat difficult to get down into the duodenum due to the patient's hiatal hernia; however, I was able to finally evaluate the entire duodenum. He had multiple petechiae throughout the entire duodenum definitely more pronounced in the bulb. These numbered greater than 50, they were extremely small, none of them were bleeding, they appeared more characteristic of petechiae versus an AVM. The scope was then withdrawn from the patient. He was turned around, given additional IV medication, and a rectal exam was performed. It was unremarkable. An Olympus colonoscope was then inserted into the patient's rectum and advanced very carefully through the entirety of the colon and into the distal terminal ileum. Distal 10 cm of the terminal ileal mucosa was unremarkable. No AVMs or bleeding sites were seen. The scope was then withdrawn back into the cecum. Within the cecum, there was a cluster of 3 AVMs and then an isolated one off to the lateral aspect. Additionally, there was a small AVM in the proximal ascending colon. At that point, I elected to use argon plasma coagulation to obliterate them. They were not actively bleeding. The scope was then withdrawn through the remainder of the colon. No other abnormalities were seen other than pandiverticulitis. No bleeding was seen coming from the diverticula. There were a few small polyps that did not appear adenomatous and were left alone. Within the rectum, retroflexion maneuver was unremarkable. No hemorrhoids were seen. Scope was then withdrawn from the patient. He tolerated the procedure well and was returned to the recovery room in stable condition. IMPRESSION: 1. Complete colonoscopy into the terminal ileum with argon plasma coagulation of arteriovenous malformations for cessation of bleeding. 2. Arteriovenous malformations, status post argon plasma coagulation. 3. Anemia. Hopefully, the arteriovenous malformations that I obliterated with APC were the culprit for his anemia; however, I have my doubts. 4. Complete upper endoscopy into the distal duodenum. 5. Duodenal petechiae. 6. Please see the progress note in the hospital computer dated today for further recommendations and thoughts. [id number]/CPS #: [id number] MTDD
[2019-04-11] MEDS: oxyCODONE/Acetamin 5/325 MG* TAB PO PRN (22:29)
[2019-04-11 22:35] LABS: Hematocrit 28 % (42-52); Hemoglobin 9.7 g/dL (14.0-18.0)
[2019-04-12] MEDS: nitroGLYCERIN DRIP* 25,000 MCG/250 ML BTL IV SCH ×2 (02:19→15:53)
[2019-04-12 06:26] LABS: Hematocrit 28 % (42-52); Hemoglobin 9.5 g/dL (14.0-18.0); Mean Corpuscular HGB Conc 34 g/dL (31-36); Mean Corpuscular Hemoglobin 28 pg (27-31); Mean Corpuscular Volume 81 fL (80-94); Mean Platelet Volume 7.6 fL (7.4-10.4); Platelet Count 157 10^3/uL (150-450); Red Cell Distribution Width 18 % (10-15)
[2019-04-12 06:46] LABS: BUN/Creatinine Ratio 11.7 (8-20); Calcium 7.8 mg/dL (8.6-10.3); EGFR African American 71.8 (>60); EGFR Non-African American 59.3 (>60); Magnesium 1.8 mg/dL (1.9-2.7); Phosphorus 3.2 mg/dL (2.5-5.0); Potassium 3.6 mmol/L (3.5-5.0)
[2019-04-12] MEDS: Pantoprazole TAB * 40 MG TAB PO SCH ×2 (08:32→22:02)
[2019-04-12] MEDS: Metoprolol Tartrate TAB* 25 MG PO SCH ×2 (08:32→22:02)
[2019-04-12] MEDS: Isosorbide Mononitrate ER TAB* 60 MG PO SCH (08:32)
[2019-04-12] MEDS: Losartan TAB* 25 MG PO SCH (08:32)
--- NOTE | 2019-04-12 08:36 | PN ---
Progress Note - Progress Note Date of Service: 04/12/19 SOAP: Subjective: []Overall stable overnight, has had continued BM. Tolerated clear liquids last night. Has had continued inermitent chest pain, pressure. Remains on NTG drip. C/o memory loss by patient and . Has not been up and moving. Dextrose (Dextrose 50% Vial 50 Ml*) 25 ml IV PUSH .FOR FS < 60 - SS PRN PRN Reason: FS < 60 Lactated Ringer's (Lactated Ringers 1000 Ml Bag*) 1,000 mls @ 50 mls/hr IV PER RATE [facility] Last Admin: 04/11/19 12:46 Dose: 50 mls/hr Nitroglycerin/Dextrose (Nitroglycerin Drip*) 25,000 mcg in 250 mls @ 0 mls/hr IV .(Initial Rate) [facility]; Protocol Last Admin: 04/12/19 02:19 Dose: 15 mls/hr Insulin Human Lispro (Humalog*) 0 units SUBCUT ACHS [facility]; Protocol Last Admin: 04/11/19 20:59 Dose: 2 units Isosorbide Mononitrate (Imdur Er Tab*) 120 mg PO QAM [facility] Last Admin: 04/11/19 08:42 Dose: 120 mg Losartan Potassium (Cozaar Tab*) 50 mg PO DAILY [facility] Metoprolol Tartrate (Lopressor Tab*) 25 mg PO BID [facility] Last Admin: 04/11/19 20:41 Dose: 25 mg Morphine Sulfate (Morphine Inj (Syringe))*) 2 mg IV Q2H PRN PRN Reason: PAIN - SEVERE Nitroglycerin (Nitroglycerin Tab 0.4 Mg*) 0.4 mg SL Q5M PRN PRN Reason: ANGINA Last Admin: 04/09/19 14:19 Dose: 0.4 mg Ondansetron HCl (Zofran Tab*) 4 mg PO Q12HR PRN PRN Reason: INDIGESTION Oxycodone/Acetaminophen (Percocet 5/325 Tab*) 1 tab PO Q8H PRN PRN Reason: PAIN - MODERATE Last Admin: 04/11/19 22:29 Dose: 1 tab Pantoprazole Sodium (Protonix Tab*) 40 mg PO BID [facility]; Protocol Last Admin: 04/11/19 20:41 Dose: 40 mg Sertraline HCl (Zoloft*) 150 mg PO BEDTIME [facility] Last Admin: 04/11/19 20:41 Dose: 150 mg Topiramate (Topamax(*)) 150 mg PO BEDTIME [facility] Last Admin: 04/11/19 20:41 Dose: 150 mg Objective: [] Vital Signs Temp Pulse Resp BP Pulse Ox 98.7 F 63 11 180/71 99 04/12/19 07:29 04/12/19 08:01 04/12/19 08:01 04/12/19 08:01 04/12/19 08:01 HEENT: pale, OM Moist CTA but decreased BS RRR SiS2 +BS distended and obese Ext warm, good pulses AAOx 3 Colonoscopy and EGD: 5 AVM identified and cauterized, additional AVM seen on prior capsule. Assessment: []73 yo male with history of intermittent sever anemia that is mulitfactorial. 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 He has had several recent episodes of brisk bleeding and Hgb dropping from 10.0 to < 7.0 in 48 hrs and several admissions despite BIW CBCs and aggressive transfusion protocol as and outpatient. Additional complication of partially occluded venous coronary graft and now demand induced DE from anemia. Plan: []1. GIB. Case discussed with GI service yesterday. - Cauderization may stop bleeding - Once stable will plan on full small bowl push enteroscopy. - Continue IV iron for Ferritin < 100, Transfuse - Goal is Hgb > 10 2. CAD. Continued chest pain on NTG drip. - Cardiology to follow today - No additional intervention. - Will consider repete bypass in the future. - Given continued CP, Tx to Hgb > 10.0 - Stop smoking - Follow Troponin. 3. FEN - CRI stable - Tx Mg and K 4. Memory loss. Dementia, watershed infarct - check TSH - CT head once stable.
[2019-04-12] MEDS: Insulin LISPRO* 1 UNITS UNIT SUBCUT SCH ×4 (08:51→22:02)
[2019-04-12] MEDS: Potassium Chlor TAB* 20 MEQ TAB.ER PO SCH (09:06)
[2019-04-12] MEDS: Ferric Gluconate IV* 125 MG in NS 0.9% 100 ML* 100 ML IVPB SCH (09:21)
[2019-04-12] MEDS ORDERED: Furosemide IV* 10 MG/ML VIAL (40 MG) IV ONE (09:35)
--- NOTE | 2019-04-12 11:27 | PN ---
Progress Note - Progress Note Date of Service: 04/12/19 Note: Progress Note -- Critical Care 24 hour events -s/p egd and colonoscopy 04/11; petechia in duodenum, numerous; AVM cecum, cauterized+ -no further bleeding overnight -awake, alert, tolerating liquid diet -on NTG infusion, no chest pain -afebrile Tele: NSR Vitals: Vital Signs Temp 98.7 F 04/12/19 07:29 Pulse 54 04/12/19 09:02 Resp 14 04/12/19 09:02 BP 168/83 04/12/19 09:02 Pulse Ox 99 04/12/19 09:02 Intake & Output 04/11/19 04/12/19 04/12/19 18:59 06:59 18:59 Intake Total 933 1553 178 Output Total 925 1025 300 Balance 8 528 -122 Weight 94.5 kg Intake: IV Fluids 411 873 LR 411 873 IVPB 178 LR 178 Medicated IV 222 320 Nitro 222 320 Oral 300 360 Packed Cells 0 Output: Urine 850 1025 300 Lynn 75 Other: Estimated Void Medium Date of Last Bowel 04/11 Movement # Bowel Movements 1 Estimated Stool Amount Medium # Voids 1 O2/Vent: 2L Infusions: NTG infusion Current Medications: Amlodipine Besylate (Norvasc Tab*) 10 mg PO DAILY [facility] Dextrose (Dextrose 50% Vial 50 Ml*) 25 ml IV PUSH .FOR FS < 60 - SS PRN PRN Reason: FS < 60 Nitroglycerin/Dextrose (Nitroglycerin Drip*) 25,000 mcg in 250 mls @ 0 mls/hr IV .(Initial Rate) [facility]; Protocol Last Admin: 04/12/19 02:19 Dose: 15 mls/hr Ferric Sodium Gluconate Complex 125 mg/ Sodium Chloride 110 mls @ 110 mls/hr IVPB DAILY [facility] Stop: 04/16/19 09:59 Last Admin: 04/12/19 09:21 Dose: 110 mls/hr Insulin Human Lispro (Humalog*) 0 units SUBCUT ACHS [facility]; Protocol Last Admin: 04/12/19 08:51 Dose: Not Given Isosorbide Mononitrate (Imdur Er Tab*) 120 mg PO QAM [facility] Last Admin: 04/12/19 08:32 Dose: 120 mg Losartan Potassium (Cozaar Tab*) 50 mg PO DAILY [facility] Last Admin: 04/12/19 08:32 Dose: 50 mg Metoprolol Tartrate (Lopressor Tab*) 25 mg PO BID [facility] Last Admin: 04/12/19 08:32 Dose: 25 mg Morphine Sulfate (Morphine Inj (Syringe))*) 2 mg IV Q2H PRN PRN Reason: PAIN - SEVERE Nitroglycerin (Nitroglycerin Tab 0.4 Mg*) 0.4 mg SL Q5M PRN PRN Reason: ANGINA Last Admin: 04/09/19 14:19 Dose: 0.4 mg Ondansetron HCl (Zofran Tab*) 4 mg PO Q12HR PRN PRN Reason: INDIGESTION Oxycodone/Acetaminophen (Percocet 5/325 Tab*) 1 tab PO Q8H PRN PRN Reason: PAIN - MODERATE Last Admin: 04/11/19 22:29 Dose: 1 tab Pantoprazole Sodium (Protonix Tab*) 40 mg PO BID [facility]; Protocol Last Admin: 04/12/19 08:32 Dose: 40 mg Potassium Chloride (Klor Con Er Tab*) 20 meq PO DAILY [facility] Last Admin: 04/12/19 09:06 Dose: 20 meq Sertraline HCl (Zoloft*) 150 mg PO BEDTIME [facility] Last Admin: 04/11/19 20:41 Dose: 150 mg Topiramate (Topamax(*)) 150 mg PO BEDTIME [facility] Last Admin: 04/11/19 20:41 Dose: 150 mg Physical Exam: Constitutional: awake, alert, no distress, no diaphoresis Head: normocephalic, atraumatic Eyes: no pallor, no icterus ENT: moist mucous membranes Neck: soft, supple, no jvd, no stridor CVS: normal rate, regular, no murmur Chest/Resp: bilateral air entry, no rhales, no wheeze, no rhonchi, no acc muscle use Abdomen/GI: soft, nontender, nondistended, BS+ Ext/Msk: warm, pulses+, 2+ edema; left arm swelling+ Skin: intact, warm Neuro: awake, alert, orientedx3, moving all extremities, no gross focal deficit Psych: normal affect Labs: Laboratory Results - last 24 hr 04/11/19 04/11/19 04/11/19 11:28 15:09 16:35 WBC 5.4 RBC 3.35 L Hgb 9.4 L Hct 28 L MCV 82 MCH 28 MCHC 34 RDW 19 H Plt Count 145 L MPV 7.9 Neut % (Auto) 70.9 Lymph % (Auto) 17.4 Jack % (Auto) 7.9 Eos % (Auto) 3.1 Baso % (Auto) 0.7 Absolute Neuts (auto) 3.8 Absolute Lymphs (auto) 0.9 L Absolute Monos (auto) 0.4 Absolute Eos (auto) 0.2 Absolute Basos (auto) 0.0 Absolute Nucleated RBC 0.0 Nucleated RBC % 0.1 Sodium Potassium Chloride Carbon Dioxide Anion Gap BUN Creatinine Est GFR ( Amer) Est GFR (Non-Af Amer) BUN/Creatinine Ratio Glucose POC Glucose (mg/dL) 140 H 115 H Calcium Phosphorus Magnesium TSH Blood Type Antibody Screen Crossmatch 04/11/19 04/12/19 04/12/19 22:20 06:10 06:10 WBC 6.0 RBC 3.40 L Hgb 9.7 L 9.5 L Hct 28 L 28 L MCV 81 MCH 28 MCHC 34 RDW 18 H Plt Count 157 MPV 7.6 Neut % (Auto) Lymph % (Auto) Jack % (Auto) Eos % (Auto) Baso % (Auto) Absolute Neuts (auto) Absolute Lymphs (auto) Absolute Monos (auto) Absolute Eos (auto) Absolute Basos (auto) Absolute Nucleated RBC Nucleated RBC % Sodium 138 Potassium 3.6 Chloride 111 Carbon Dioxide 22 Anion Gap 5 BUN 14 Creatinine 1.20 H Est GFR ( Amer) 71.8 Est GFR (Non-Af Amer) 59.3 BUN/Creatinine Ratio 11.7 Glucose 114 H POC Glucose (mg/dL) Calcium 7.8 L Phosphorus 3.2 Magnesium 1.8 L TSH Blood Type Antibody Screen Crossmatch 04/12/19 04/12/19 04/12/19 06:10 08:20 09:15 WBC RBC Hgb Hct MCV MCH MCHC RDW Plt Count MPV Neut % (Auto) Lymph % (Auto) Jack % (Auto) Eos % (Auto) Baso % (Auto) Absolute Neuts (auto) Absolute Lymphs (auto) Absolute Monos (auto) Absolute Eos (auto) Absolute Basos (auto) Absolute Nucleated RBC Nucleated RBC % Sodium Potassium Chloride Carbon Dioxide Anion Gap BUN Creatinine Est GFR ( Amer) Est GFR (Non-Af Amer) BUN/Creatinine Ratio Glucose POC Glucose (mg/dL) 110 H Calcium Phosphorus Magnesium TSH 3.66 Blood Type B Positive Antibody Screen Negative Crossmatch See Detail Imaging: TTE 04/09 - LVEF 40-45% with inferior and inferoseptal WMA, reviewed report Assessment: 73y M w/pmhx of CAD/CABG 2000, DM, PVD, myelodysplasia, AVM, h/o lower GI bleeding, HLD, COPD; recent hospital admission for GI bleed requiring PRBC transfusion; presented to ER 04/08 with complaints of blood in stool x 1 day. Also complaints of abdominal pain, no n/v. Admitted with a hg of 6.2, given 2 prbc overnight, to hg of 9.2. GI workup started and planned for colonoscopy. Started to continue having bleeding, then developed chest pain, with increasing troponins from 2 to 4, and EKG changes consistent with anterior wall ST depressions. Being transfused 1 unit PRBC now, additional one pending. Last bowel movement was bloody and about 1-2 hours back. He is currently in bed , chest pain is better, had NTG sublingual and morphine IV with minimal improvement. -Acute GI hemorrhage ; s/p EGD and Colonoscopy 04/11; duodenal petechia+ and cecal AVMs+ -Acute blood loss anemia -NSTEMI -Hypertensive urgency chronic LV systolic dysfunction CAD/CABG Myelodysplasia Plan: Neuro- -awake, alert -Delirium prec; avoid BDZ CVS- -NSTEMI+, new ACS in setting of acute GIB; down-trending troponin; stable hemodynamics -not a cath candidate due to ongoing GIB still; plan for cath/cabg re-eval at some point -no chest pain; maintain SBP<150; wean NTG to off today -cont metoprolol 25 bid; start losartan 50 and norvasc 10 today; cont imdur 120 -PRBC transfusion to keep hg>8 -d/c IVF -lasix 40mg iv x1 today -check LUE venous duplex -for prbc x2 today by lluvia; hg otherwise stable -Maintain MAP>65 Resp- -no resp distress noted -Wean Fio2 to keep sat>92% -aspiration prec ID- afebrile. wbc normal. no infection suspected. GI- -GI Bleed; s/p egd and colonoscopy 04/11; multiple petechia in duodenum and unable to cauterize; cecal AVMs cauterized -plan for push enteroscopy at [place] or [place] at some point -on sucralfate and PPI PO -goal hg>8 -regular diet today Renal- -d/c ivf -cr 1.2, basleine has been low 1s; making urine -lasix 40mg iv x1 -replete PO kcl -strict I/O, replete to keep K>4, Mg>2 -lynn as indicated Heme- -acute blood loss 2/2 to GIB; NSTEMI+; transfuse to keep hg>8 -so far; 2 prbc 04/08, 3 prbc 04/09; 1 prbc 04/10; plan for prbc today -no antiplatelets or AC Endo- Maintain BG<200, insulin protocol as needed Musculsk- pressure ulcer prophylaxis. oob to chair Wounds- none Nutrition- regular diet DVT prophylaxis: SCD, no AC GI prophylaxis: ppi Central Line: no Arterial Line: no Lynn Cathetor: no Disposition: in ICU for NTG infusion; control BP, wean off NTG, can transfer to medical floor once off NTG Patient Clinical Status: stable, improved Code Status: full code Edison Markham MD [employer] (Electronically Signed)
--- NOTE | 2019-04-12 12:24 | PN ---
Subjective Date of Service: 04/12/19 - CC: angina Interval History: 73 yo followed at the [facility] with long PMHx of GI bleeding and diffuse vascular disease (distant CABG, stent to SMA and PVD LE's. Admitted with acute onset of bloody bowel movements and marked anemia, then developed angina, ECG changes and is now s/p OR. The patient underwent endoscopy yesterday, some AVM's cauterized, but many potential bleeders unable to be cauterized. Now the patient states he has 1/10 CP. Remains on NTG gtt now day 4. Medications Active Medications: Amlodipine Besylate (Norvasc Tab*) 10 mg PO DAILY [facility] Dextrose (Dextrose 50% Vial 50 Ml*) 25 ml IV PUSH .FOR FS < 60 - SS PRN PRN Reason: FS < 60 Nitroglycerin/Dextrose (Nitroglycerin Drip*) 25,000 mcg in 250 mls @ 0 mls/hr IV .(Initial Rate) [facility]; Protocol Last Admin: 04/12/19 02:19 Dose: 15 mls/hr Ferric Sodium Gluconate Complex 125 mg/ Sodium Chloride 110 mls @ 110 mls/hr IVPB DAILY [facility] Stop: 04/16/19 09:59 Last Admin: 04/12/19 09:21 Dose: 110 mls/hr Insulin Human Lispro (Humalog*) 0 units SUBCUT ACHS [facility]; Protocol Last Admin: 04/12/19 08:51 Dose: Not Given Isosorbide Mononitrate (Imdur Er Tab*) 120 mg PO QAM [facility] Last Admin: 04/12/19 08:32 Dose: 120 mg Losartan Potassium (Cozaar Tab*) 50 mg PO DAILY [facility] Last Admin: 04/12/19 08:32 Dose: 50 mg Metoprolol Tartrate (Lopressor Tab*) 25 mg PO BID [facility] Last Admin: 04/12/19 08:32 Dose: 25 mg Morphine Sulfate (Morphine Inj (Syringe))*) 2 mg IV Q2H PRN PRN Reason: PAIN - SEVERE Nitroglycerin (Nitroglycerin Tab 0.4 Mg*) 0.4 mg SL Q5M PRN PRN Reason: ANGINA Last Admin: 04/09/19 14:19 Dose: 0.4 mg Ondansetron HCl (Zofran Tab*) 4 mg PO Q12HR PRN PRN Reason: INDIGESTION Oxycodone/Acetaminophen (Percocet 5/325 Tab*) 1 tab PO Q8H PRN PRN Reason: PAIN - MODERATE Last Admin: 04/11/19 22:29 Dose: 1 tab Pantoprazole Sodium (Protonix Tab*) 40 mg PO BID [facility]; Protocol Last Admin: 04/12/19 08:32 Dose: 40 mg Potassium Chloride (Klor Con Er Tab*) 20 meq PO DAILY [facility] Last Admin: 04/12/19 09:06 Dose: 20 meq Sertraline HCl (Zoloft*) 150 mg PO BEDTIME [facility] Last Admin: 04/11/19 20:41 Dose: 150 mg Topiramate (Topamax(*)) 150 mg PO BEDTIME [facility] Last Admin: 04/11/19 20:41 Dose: 150 mg Objective Vital Signs: Temp Pulse Resp BP Pulse Ox 98.4 F 55 13 131/95 99 04/12/19 11:26 04/12/19 12:00 04/12/19 12:00 04/12/19 11:31 04/12/19 12:00 Oxygen Devices in Use Now: None Appearance: older gentleman, appears placid, in no distress, lying at 30 degrees in hospital bed. Eyes: No Scleral Icterus, PERRLA Ears/Nose/Mouth/Throat: Mucous Membranes Moist Neck: NL Appearance and Movements; NL JVP, Trachea Midline Respiratory: Symmetrical Chest Expansion and Respiratory Effort - few crackles at the bases. Cardiovascular: RRR Abdominal: NL Sounds; No Tenderness; No Distention Extremities: No Clubbing, Cyanosis - trace edema legs. Skin: No Rash or Ulcers, - Neurological: Alert and Oriented x 3 Lines/Tubes/Other Access: Clean, Dry and Intact Peripheral IV Laboratory Results: 04/12/19 06:10 04/12/19 06:10 INR (Anticoag Therapy) 1.03 (0.82-1.09) 04/08/19 14:13 Total Bilirubin 0.20 mg/dL (0.2-1.0) 04/10/19 04:20 Direct Bilirubin 0.00 mg/dL (0.03-0.18) L 04/10/19 04:20 Indirect Bilirubin [employer] 04/10/19 04:20 AST 110 U/L (13-39) H 04/10/19 04:20 ALT 18 U/L (7-52) 04/10/19 04:20 Alkaline Phosphatase 45 U/L (34-104) 04/10/19 04:20 CK-MB (CK-2) 21.0 ng/mL (0.6-6.3) H 04/09/19 12:32 Total Protein 4.4 g/dL (6.4-8.9) L 04/10/19 04:20 Albumin 2.9 g/dL (3.2-5.2) L 04/10/19 04:20 Globulin 1.5 g/dL (2-4) L 04/10/19 04:20 Albumin/Globulin Ratio 1.9 (1-3) 04/10/19 04:20 Triglycerides 240 mg/dL 04/10/19 04:20 Cholesterol 119 mg/dL 04/10/19 04:20 LDL Cholesterol 51 mg/dL 04/10/19 04:20 HDL Cholesterol 19.7 mg/dL 04/10/19 04:20 TSH 3.66 mcIU/mL (0.34-5.60) 04/12/19 09:15 04/09/19 04/09/19 04/09/19 05:25 12:32 15:27 Troponin I 2.31 H* 4.54 H* 2.68 H* 04/09/19 04/10/19 04/10/19 22:10 04:20 10:23 Troponin I 25.78 H* 38.14 H* 30.16 H* 04/10/19 21:45 Troponin I 14.19 H* Diagnostic Imaging: CXR: hyperinflation *[facility]* Transthoracic Echocardiogram Patient: Cristopher Rosado *Reading Physician: * Judy Velasco MD Summary: - Procedure narrative: Image quality was fair. - Left ventricle: Wall thickness is mildly increased. The estimated ejection fraction is 40-45%. Severe hypokinesis of the basalinferolateral, inferior, and inferoseptal myocardium. Features are consistent with a pseudonormal left ventricular filling pattern, with concomitant abnormal relaxation and increased filling pressure (grade 2 diastolic dysfunction). - Right ventricle: Systolic function is normal. - Mitral valve: There is mild to moderate regurgitation. EKG Data: 04/11/19 : ST depression precordial leads and inverted T waves V1-V4 new c/w admission. ST elevation inferior leads and inferior Q's - chronic. Assessment/Plan 73 yo vasculopath admitted with active GI bleed and angina with NQMI in the setting of significant anemia. GI bleeding improved, stabilized for now. CP improved but not resolved. PMHX: CAD/CABG 2000, DM, PVD, myelodysplasia, AVM, h/o lower GI bleeding, HLD, COPD. CAD: -Ongoing angina and will be tolerant of ntg gtt at day 4 -Agree with initiation of amlodipine. -should wean off NTG gtt (Imdur won't work either if tolerance to NTG GTT) -Continue beta marck, pulse of 50''s 60's good. -Lipids: ldl 51, TG's 240. Diet may improve TG's, not a candidate for fish oil now with active bleeding, but consider Vascepa in the future. -Smoking cessation discussed today with patient and . Dr Bernard brought up redo CABG to revasularize. I don't think he could be done on bypass due to increased risk of bleeding, might be a candidate off pump. CM: -Will update echo next week for post OR EF.
[2019-04-12] MEDS: oxyCODONE/Acetamin 5/325 MG* TAB PO PRN ×2 (15:39→22:14)
[2019-04-12] MEDS: Sodium Chloride FLUSH* 10 ML SYRINGE IV FLUSH SCH ×2 (15:40→19:27)
--- NOTE | 2019-04-12 15:41 | PN ---
Progress Note - Progress Note Date of Service: 04/12/19 Note: procedure fu; doing well, bms without blood; stable epigastric pain VS: 98.7, 156/69, 58 nad, alert +bs, soft, nt Hgb 9.5, stable, s/p PRBC chronic anemia, ?blood loss, ?Cecal avms-----s/p obliteration yesterday; hopefully, they were the cause if rebleeds, dbl balloon enteroscopy PPI for epigastric pain, ?angina Prosper Peerz MD [facility] [phone]
[2019-04-12] MEDS ORDERED: Furosemide IV* 10 MG/ML 2 ML VIAL (20 MG) IV ONE (18:53)
[2019-04-12] MEDS ORDERED: nitroGLYCERIN DRIP* 25,000 MCG/250 ML BTL IV SCH (18:54)
[2019-04-12] MEDS: amLODIPine TAB* 5 MG PO SCH (19:26)
[2019-04-12] MEDS: Sertraline* 50 MG TAB PO SCH (22:01)
[2019-04-12] MEDS: Topiramate TAB(*) 25 MG PO SCH (22:01)
[2019-04-13 06:47] LABS: Hematocrit 32 % (42-52); Hemoglobin 11.1 g/dL (14.0-18.0); Mean Corpuscular HGB Conc 35 g/dL (31-36); Mean Corpuscular Hemoglobin 29 pg (27-31); Mean Corpuscular Volume 82 fL (80-94); Mean Platelet Volume 7.8 fL (7.4-10.4); Platelet Count 165 10^3/uL (150-450); Red Blood Count 3.89 10^6 /uL (4.18-5.48); Red Cell Distribution Width 18 % (10-15)
[2019-04-13 06:52] LABS: BUN/Creatinine Ratio 11.2 (8-20); Calcium 7.8 mg/dL (8.6-10.3); EGFR African American 68.5 (>60); EGFR Non-African American 56.6 (>60); Magnesium 1.5 mg/dL (1.9-2.7); Phosphorus 4.8 mg/dL (2.5-5.0); Potassium 3.4 mmol/L (3.5-5.0)
[2019-04-13] MEDS: Sodium Chloride FLUSH* 10 ML SYRINGE IV FLUSH SCH ×5 (08:02→21:57)
[2019-04-13] MEDS: Isosorbide Mononitrate ER TAB* 60 MG PO SCH (08:13)
[2019-04-13] MEDS: Potassium Chlor TAB* 20 MEQ TAB.ER PO SCH (08:14)
[2019-04-13] MEDS: amLODIPine TAB* 5 MG PO SCH (08:14)
[2019-04-13] MEDS: Metoprolol Tartrate TAB* 25 MG PO SCH ×2 (08:15→21:15)
[2019-04-13] MEDS: Losartan TAB* 25 MG PO SCH (08:15)
[2019-04-13] MEDS: Pantoprazole TAB * 40 MG TAB PO SCH ×2 (08:15→21:16)
[2019-04-13] MEDS ORDERED: Magnesium Sulfate 2 GM IV* 2 GM/50 ML BAG IVPB ONE (09:03)
[2019-04-13] MEDS: Insulin LISPRO* 1 UNITS UNIT SUBCUT SCH ×4 (09:04→21:18)
[2019-04-13] MEDS: Ferric Gluconate IV* 125 MG in NS 0.9% 100 ML* 100 ML IVPB SCH (09:04)
[2019-04-13] MEDS: Potassium Chloride* LIQUID 20 MEQ/15 ML UDC PO SCH ×2 (09:29→21:14)
--- NOTE | 2019-04-13 10:16 | PN ---
Progress Note - Progress Note Date of Service: 04/13/19 SOAP: Subjective: []He has continued chest pain but otherwise w/o complaint. No more bleeding. He has been eating, some stomach pain this am. No fevers or chills, no SOB. Tolerated blood transfusion. Amlodipine Besylate (Norvasc Tab*) 10 mg PO DAILY [facility] Last Admin: 04/13/19 08:14 Dose: 10 mg Dextrose (Dextrose 50% Vial 50 Ml*) 25 ml IV PUSH .FOR FS < 60 - SS PRN PRN Reason: FS < 60 Ferric Sodium Gluconate Complex 125 mg/ Sodium Chloride 110 mls @ 110 mls/hr IVPB DAILY [facility] Stop: 04/16/19 09:59 Last Admin: 04/13/19 09:04 Dose: 110 mls/hr Nitroglycerin/Dextrose (Nitroglycerin Drip*) 25,000 mcg in 250 mls @ 0 mls/hr IV .(Initial Rate) [facility]; Protocol Last Admin: 04/13/19 03:00 Dose: 12 mls/hr Insulin Human Lispro (Humalog*) 0 units SUBCUT ACHS [facility]; Protocol Last Admin: 04/13/19 09:04 Dose: 3 units Isosorbide Mononitrate (Imdur Er Tab*) 120 mg PO QAM [facility] Last Admin: 04/13/19 08:13 Dose: 120 mg Losartan Potassium (Cozaar Tab*) 50 mg PO DAILY [facility] Last Admin: 04/13/19 08:15 Dose: 50 mg Metoprolol Tartrate (Lopressor Tab*) 25 mg PO BID [facility] Last Admin: 04/13/19 08:15 Dose: 25 mg Morphine Sulfate (Morphine Inj (Syringe))*) 2 mg IV Q2H PRN PRN Reason: PAIN - SEVERE Nitroglycerin (Nitroglycerin Tab 0.4 Mg*) 0.4 mg SL Q5M PRN PRN Reason: ANGINA Last Admin: 04/09/19 14:19 Dose: 0.4 mg Ondansetron HCl (Zofran Tab*) 4 mg PO Q12HR PRN PRN Reason: INDIGESTION Last Admin: 04/13/19 06:16 Dose: 4 mg Oxycodone/Acetaminophen (Percocet 5/325 Tab*) 1 tab PO Q8H PRN PRN Reason: PAIN - MODERATE Last Admin: 04/12/19 22:14 Dose: 1 tab Pantoprazole Sodium (Protonix Tab*) 40 mg PO BID [facility]; Protocol Last Admin: 04/13/19 08:15 Dose: 40 mg Potassium Chloride (Klor Con Er Tab*) 20 meq PO DAILY [facility] Last Admin: 04/13/19 08:14 Dose: 20 meq Potassium Chloride (Potassium Chloride Liquid) 40 meq PO BID [facility] Stop: 04/13/19 21:01 Last Admin: 04/13/19 09:29 Dose: 40 meq Sertraline HCl (Zoloft*) 150 mg PO BEDTIME [facility] Last Admin: 04/12/19 22:01 Dose: 150 mg Sodium Chloride (Saline Flush*) 10 ml IV FLUSH Q4H [facility] Last Admin: 04/13/19 08:24 Dose: 10 ml Topiramate (Topamax(*)) 150 mg PO BEDTIME [facility] Last Admin: 04/12/19 22:01 Dose: 150 mg Objective: [] Vital Signs Temp Pulse Resp BP Pulse Ox 99.0 F 56 11 150/75 95 04/13/19 08:18 04/13/19 10:00 04/13/19 10:00 04/13/19 09:45 04/13/19 10:00 HEENT: OM Moist CTA but decreased BS RRR SiS2 +BS distended and obese Ext warm, good pulses AAOx 3 Assessment: []73 yo male with history of intermittent sever anemia that is mulitfactorial. 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 He has had several recent episodes of brisk bleeding and Hgb dropping from 10.0 to < 7.0 in 48 hrs and several admissions despite weekly to BIW CBCs and aggressive transfusion protocol as and outpatient. Additional complication of partially occluded venous coronary graft and now demand induced AK from anemia. Plan: []1. GIB. Stable today - Cauderization may stop bleeding - Once stable will plan on full small bowl push enteroscopy. [facility] discuss [facility] [place] [facility]. - Continue IV iron Ferrlicet 125 mg x 5 days - Goal is Hgb > 10 2. CAD. Continued chest pain on NTG drip. - Cardiology to follow today - No additional intervention. - Will consider repete bypass in the future. - Titrate NTG drip. - Stop smoking 3. FEN - CRI stable - Tx Mg to 2.0 and K 4.0 4. Memory loss. Dementia, watershed infarct - TSH WNL - CT head once stable. 5. Can leave ICU once CP improved, can go to Hematology service
--- NOTE | 2019-04-13 10:46 | PN ---
Progress Note - Progress Note Date of Service: 04/13/19 Note: Progress Note -- Critical Care 24 hour events -no events overnight; awake, alert -no bleeding, awake, alert, no distress -afebrile -off NTG infusion this morning for past 1-2 hours Tele: sinus link Vitals: Vital Signs Temp 99.0 F 04/13/19 08:18 Pulse 56 04/13/19 10:00 Resp 11 04/13/19 10:00 BP 150/75 04/13/19 09:45 Pulse Ox 95 04/13/19 10:00 Intake & Output 04/12/19 04/13/19 04/13/19 18:59 06:59 18:59 Intake Total 878 556 240 Output Total 1950 2261 Balance -1072 -1705 240 Weight 91.5 kg Intake: IV Fluids 700 Blood 348 Ferric Gluconate 102 LR 250 IVPB 178 LR 178 Medicated IV 276 Nitro 276 Oral 280 240 Output: Urine 1950 2261 O2/Vent: 2L Infusions: NTG infusion on hold Current Medications: Amlodipine Besylate (Norvasc Tab*) 10 mg PO DAILY [facility] Last Admin: 04/13/19 08:14 Dose: 10 mg Dextrose (Dextrose 50% Vial 50 Ml*) 25 ml IV PUSH .FOR FS < 60 - SS PRN PRN Reason: FS < 60 Ferric Sodium Gluconate Complex 125 mg/ Sodium Chloride 110 mls @ 110 mls/hr IVPB DAILY [facility] Stop: 04/16/19 09:59 Last Admin: 04/13/19 09:04 Dose: 110 mls/hr Nitroglycerin/Dextrose (Nitroglycerin Drip*) 25,000 mcg in 250 mls @ 0 mls/hr IV .(Initial Rate) [facility]; Protocol Last Admin: 04/13/19 03:00 Dose: 12 mls/hr Insulin Human Lispro (Humalog*) 0 units SUBCUT ACHS [facility]; Protocol Last Admin: 04/13/19 09:04 Dose: 3 units Isosorbide Mononitrate (Imdur Er Tab*) 120 mg PO QAM [facility] Last Admin: 04/13/19 08:13 Dose: 120 mg Losartan Potassium (Cozaar Tab*) 50 mg PO DAILY [facility] Last Admin: 04/13/19 08:15 Dose: 50 mg Metoprolol Tartrate (Lopressor Tab*) 25 mg PO BID [facility] Last Admin: 04/13/19 08:15 Dose: 25 mg Morphine Sulfate (Morphine Inj (Syringe))*) 2 mg IV Q2H PRN PRN Reason: PAIN - SEVERE Nitroglycerin (Nitroglycerin Tab 0.4 Mg*) 0.4 mg SL Q5M PRN PRN Reason: ANGINA Last Admin: 04/09/19 14:19 Dose: 0.4 mg Ondansetron HCl (Zofran Tab*) 4 mg PO Q12HR PRN PRN Reason: INDIGESTION Last Admin: 04/13/19 06:16 Dose: 4 mg Oxycodone/Acetaminophen (Percocet 5/325 Tab*) 1 tab PO Q8H PRN PRN Reason: PAIN - MODERATE Last Admin: 04/12/19 22:14 Dose: 1 tab Pantoprazole Sodium (Protonix Tab*) 40 mg PO BID [facility]; Protocol Last Admin: 04/13/19 08:15 Dose: 40 mg Potassium Chloride (Klor Con Er Tab*) 20 meq PO DAILY [facility] Last Admin: 04/13/19 08:14 Dose: 20 meq Potassium Chloride (Potassium Chloride Liquid) 40 meq PO BID [facility] Stop: 04/13/19 21:01 Last Admin: 04/13/19 09:29 Dose: 40 meq Sertraline HCl (Zoloft*) 150 mg PO BEDTIME [facility] Last Admin: 04/12/19 22:01 Dose: 150 mg Sodium Chloride (Saline Flush*) 10 ml IV FLUSH Q4H [facility] Last Admin: 04/13/19 08:24 Dose: 10 ml Topiramate (Topamax(*)) 150 mg PO BEDTIME [facility] Last Admin: 04/12/19 22:01 Dose: 150 mg Physical Exam: Constitutional: awake, alert, no distress, no diaphoresis Head: normocephalic, atraumatic Eyes: no pallor, no icterus ENT: moist mucous membranes Neck: soft, supple, no jvd, no stridor CVS: normal rate, regular, no murmur Chest/Resp: bilateral air entry, no rhales, no wheeze, no rhonchi, no acc muscle use Abdomen/GI: soft, nontender, nondistended, BS+ Ext/Msk: warm, pulses+, 2+ edema; left arm swelling+ Skin: intact, warm Neuro: awake, alert, orientedx3, moving all extremities, no gross focal deficit Psych: normal affect Labs: Laboratory Results - last 24 hr 04/09/19 04/11/19 04/12/19 17:10 20:50 06:10 WBC RBC Hgb Hct MCV MCH MCHC RDW Plt Count MPV Sodium Potassium Chloride Carbon Dioxide Anion Gap BUN Creatinine Est GFR ( Amer) Est GFR (Non-Af Amer) BUN/Creatinine Ratio Glucose POC Glucose (mg/dL) 178 H 147 H Calcium Phosphorus Magnesium Blood Type B Positive Antibody Screen Negative Crossmatch See Detail 04/12/19 04/12/19 04/12/19 12:40 16:46 21:45 WBC RBC Hgb Hct MCV MCH MCHC RDW Plt Count MPV Sodium Potassium Chloride Carbon Dioxide Anion Gap BUN Creatinine Est GFR ( Amer) Est GFR (Non-Af Amer) BUN/Creatinine Ratio Glucose POC Glucose (mg/dL) 193 H 198 H 183 H Calcium Phosphorus Magnesium Blood Type Antibody Screen Crossmatch 04/13/19 04/13/19 06:00 06:00 WBC 7.0 RBC 3.89 L Hgb 11.1 L Hct 32 L MCV 82 MCH 29 MCHC 35 RDW 18 H Plt Count 165 MPV 7.8 Sodium 138 Potassium 3.4 L Chloride 108 Carbon Dioxide 25 Anion Gap 5 BUN 14 Creatinine 1.25 H Est GFR ( Amer) 68.5 Est GFR (Non-Af Amer) 56.6 BUN/Creatinine Ratio 11.2 Glucose 160 H POC Glucose (mg/dL) Calcium 7.8 L Phosphorus 4.8 Magnesium 1.5 L Blood Type Antibody Screen Crossmatch Imaging: TTE 04/09 - LVEF 40-45% with inferior and inferoseptal WMA, reviewed report Assessment: 73y M w/pmhx of CAD/CABG 1999, DM, PVD, myelodysplasia, AVM, h/o lower GI bleeding, HLD, COPD; recent hospital admission for GI bleed requiring PRBC transfusion; presented to ER 04/08 with complaints of blood in stool x 1 day. Also complaints of abdominal pain, no n/v. Admitted with a hg of 6.2, given 2 prbc overnight, to hg of 9.2. GI workup started and planned for colonoscopy. Started to continue having bleeding, then developed chest pain, with increasing troponins from 2 to 4, and EKG changes consistent with anterior wall ST depressions. Being transfused 1 unit PRBC now, additional one pending. Last bowel movement was bloody and about 1-2 hours back. He is currently in bed , chest pain is better, had NTG sublingual and morphine IV with minimal improvement. -Acute GI hemorrhage ; s/p EGD and Colonoscopy 04/11; duodenal petechia+ and cecal AVMs+ -Acute blood loss anemia -NSTEMI -Hypertensive urgency chronic LV systolic dysfunction CAD/CABG Myelodysplasia Plan: Neuro- -awake, alert -Delirium prec; avoid BDZ CVS- -NSTEMI+, new ACS in setting of acute GIB; down-trending troponin; stable hemodynamics -not a cath candidate due to ongoing GIB still; plan for cath/cabg re-eval at some point -no chest pain; maintain SBP<150 -off NTG infusion; BP holding <150; cont metoprolol 25 bid; losartan 50 daily , norvasc 10 daily, cont imdur 120 daily -PRBC transfusion to keep hg>8 -hg stable, no further bleeding -IV diuretics PRN -LE duplex neg dvt -Maintain MAP>65 Resp- -no resp distress noted -Wean Fio2 to keep sat>92% -aspiration prec ID- afebrile. wbc normal. no infection suspected. GI- -GI Bleed; s/p egd and colonoscopy 04/11; multiple petechia in duodenum and unable to cauterize; cecal AVMs cauterized -plan for push enteroscopy at [place] or [place] at some point -on sucralfate and PPI PO -goal hg>8 -regular diet today -no further bleeding noted Renal- -cr 1.2, basleine has been low 1s; making urine -good uop with lasix; PRN lasix now -replete PO kcl -IV MgSulfate 2gm x1 -strict I/O, replete to keep K>4, Mg>2 -lnyn as indicated Heme- -acute blood loss 2/2 to GIB; NSTEMI+; transfuse to keep hg>8 -so far; 2 prbc 04/08, 3 prbc 04/09; 1 prbc 04/10; 04/12 prbc x2 -no antiplatelets or AC -LE duplex neg for dvt Endo- Maintain BG<200, insulin protocol as needed Musculsk- pressure ulcer prophylaxis. ambulate as tolerated Wounds- none Nutrition- regular diet DVT prophylaxis: SCD, no AC GI prophylaxis: ppi Central Line: no Arterial Line: no Lynn Cathetor: no Disposition: if BP stable in next few hours, can transfer to medical floor/ tele under [place]/heme service Patient Clinical Status: stable, improved Code Status: full code Edison Markham MD Rover Tender (Electronically Signed)
[2019-04-13] MEDS ORDERED: amLODIPine TAB* 5 MG PO SCH ×2 (11:21→13:00)
[2019-04-13 11:38] LABS: Troponin I 4.96 ng/mL (<0.04)
--- NOTE | 2019-04-13 13:21 | PN ---
Subjective Date of Service: 04/13/19 - CC: bloody stool/CP resolved. Interval History: 73 yo followed at the [facility] with long PMHx of GI bleeding and diffuse vascular disease (distant CABG, stent to SMA and PVD LE's. Admitted with acute onset of bloody bowel movements and marked anemia, then developed angina, ECG changes and is now s/p WA. Eating and CP free today. No epigastric or abdominal pain. Off NTG gtt and on amlodipine. No c/o. Medications Active Medications: Amlodipine Besylate (Norvasc Tab*) 10 mg PO DAILY [facility] Last Admin: 04/13/19 08:14 Dose: 10 mg Dextrose (Dextrose 50% Vial 50 Ml*) 25 ml IV PUSH .FOR FS < 60 - SS PRN PRN Reason: FS < 60 Ferric Sodium Gluconate Complex 125 mg/ Sodium Chloride 110 mls @ 110 mls/hr IVPB DAILY [facility] Stop: 04/16/19 09:59 Last Admin: 04/13/19 09:04 Dose: 110 mls/hr Insulin Human Lispro (Humalog*) 0 units SUBCUT [facility]; Protocol Last Admin: 04/13/19 12:20 Dose: 3 units Isosorbide Mononitrate (Imdur Er Tab*) 120 mg PO QAM [facility] Last Admin: 04/13/19 08:13 Dose: 120 mg Losartan Potassium (Cozaar Tab*) 50 mg PO DAILY [facility] Last Admin: 04/13/19 08:15 Dose: 50 mg Metoprolol Tartrate (Lopressor Tab*) 25 mg PO BID [facility] Last Admin: 04/13/19 08:15 Dose: 25 mg Morphine Sulfate (Morphine Inj (Syringe))*) 2 mg IV Q2H PRN PRN Reason: PAIN - SEVERE Nitroglycerin (Nitroglycerin Tab 0.4 Mg*) 0.4 mg SL Q5M PRN PRN Reason: ANGINA Last Admin: 04/09/19 14:19 Dose: 0.4 mg Ondansetron HCl (Zofran Tab*) 4 mg PO Q12HR PRN PRN Reason: INDIGESTION Last Admin: 04/13/19 06:16 Dose: 4 mg Oxycodone/Acetaminophen (Percocet 5/325 Tab*) 1 tab PO Q8H PRN PRN Reason: PAIN - MODERATE Last Admin: 04/12/19 22:14 Dose: 1 tab Pantoprazole Sodium (Protonix Tab*) 40 mg PO BID [facility]; Protocol Last Admin: 04/13/19 08:15 Dose: 40 mg Potassium Chloride (Klor Con Er Tab*) 20 meq PO DAILY [facility] Last Admin: 04/13/19 08:14 Dose: 20 meq Potassium Chloride (Potassium Chloride Liquid) 40 meq PO BID [facility] Stop: 04/13/19 21:01 Last Admin: 04/13/19 09:29 Dose: 40 meq Sertraline HCl (Zoloft*) 150 mg PO BEDTIME [facility] Last Admin: 04/12/19 22:01 Dose: 150 mg Sodium Chloride (Saline Flush*) 10 ml IV FLUSH Q4H [facility] Last Admin: 04/13/19 12:20 Dose: 10 ml Topiramate (Topamax(*)) 150 mg PO BEDTIME [facility] Last Admin: 04/12/19 22:01 Dose: 150 mg Objective Vital Signs: Temp Pulse Resp BP Pulse Ox 98.3 F 60 14 151/66 97 04/13/19 12:23 04/13/19 13:01 04/13/19 13:01 04/13/19 13:01 04/13/19 13:01 Vital Signs 04/12/19 04/12/19 04/12/19 13:31 13:45 14:00 Temperature Pulse Rate 60 58 58 Respiratory 17 13 13 Rate Blood Pressure 139/65 156/69 144/62 (mmHg) O2 Sat by Pulse 97 98 98 Oximetry 04/12/19 04/12/19 04/12/19 14:01 14:12 14:15 Temperature Pulse Rate 57 57 56 Respiratory 13 18 14 Rate Blood Pressure 158/65 158/71 (mmHg) O2 Sat by Pulse 99 98 97 Oximetry 04/12/19 04/12/19 04/12/19 14:30 14:45 15:00 Temperature Pulse Rate 57 58 56 Respiratory 11 17 10 Rate Blood Pressure 173/70 156/69 173/68 (mmHg) O2 Sat by Pulse 97 97 97 Oximetry 04/12/19 04/12/19 04/12/19 15:05 15:15 15:30 Temperature 98.7 F Pulse Rate 73 58 Respiratory 15 16 Rate Blood Pressure 175/73 159/64 (mmHg) O2 Sat by Pulse 97 97 Oximetry 0904/12/19 04/12/19 15:39 15:45 16:00 Temperature Pulse Rate 65 64 Respiratory 15 16 13 Rate Blood Pressure 139/69 158/71 (mmHg) O2 Sat by Pulse 97 97 Oximetry 04/12/19 04/12/19 04/12/19 16:15 16:30 16:46 Temperature Pulse Rate 65 68 58 Respiratory 16 16 16 Rate Blood Pressure 162/68 154/65 147/67 (mmHg) O2 Sat by Pulse 96 96 98 Oximetry 04/12/19 04/12/19 04/12/19 17:00 17:16 17:30 Temperature Pulse Rate 74 59 62 Respiratory 17 14 17 Rate Blood Pressure 166/69 170/67 147/69 (mmHg) O2 Sat by Pulse 96 97 96 Oximetry 04/12/19 04/12/19 04/12/19 17:45 18:00 18:16 Temperature Pulse Rate 63 59 68 Respiratory 17 15 18 Rate Blood Pressure 146/73 163/80 156/93 (mmHg) O2 Sat by Pulse 96 99 97 Oximetry 04/12/19 04/12/19 04/12/19 18:18 18:30 18:45 Temperature Pulse Rate 66 63 64 Respiratory 15 15 13 Rate Blood Pressure 154/68 157/72 170/75 (mmHg) O2 Sat by Pulse 96 97 97 Oximetry 04/12/19 04/12/19 04/12/19 19:00 19:15 19:30 Temperature Pulse Rate 64 63 60 Respiratory 14 13 13 Rate Blood Pressure 156/67 153/69 172/78 (mmHg) O2 Sat by Pulse 97 97 97 Oximetry 04/12/19 04/12/19 04/12/19 19:46 19:56 20:00 Temperature 97.6 F Pulse Rate 61 59 Respiratory 22 16 Rate Blood Pressure 152/76 160/70 (mmHg) O2 Sat by Pulse 97 97 Oximetry 04/12/19 04/12/19 04/12/19 20:16 20:30 20:45 Temperature Pulse Rate 59 69 70 Respiratory 16 17 18 Rate Blood Pressure 146/69 160/70 165/72 (mmHg) O2 Sat by Pulse 97 96 97 Oximetry 04/12/19 04/12/19 04/12/19 21:00 21:01 21:15 Temperature Pulse Rate 62 62 69 Respiratory 21 22 23 Rate Blood Pressure 136/62 159/69 (mmHg) O2 Sat by Pulse 97 97 97 Oximetry 04/12/19 04/12/19 04/12/19 21:30 21:45 22:00 Temperature Pulse Rate 69 69 68 Respiratory 18 21 19 Rate Blood Pressure 149/70 155/71 151/69 (mmHg) O2 Sat by Pulse 96 97 96 Oximetry 04/12/19 04/12/19 04/12/19 22:14 22:15 22:30 Temperature Pulse Rate 69 68 Respiratory 18 17 17 Rate Blood Pressure 167/72 141/70 (mmHg) O2 Sat by Pulse 97 96 Oximetry 04/12/19 04/12/19 04/12/19 22:45 23:00 23:01 Temperature Pulse Rate 67 73 72 Respiratory 12 21 21 Rate Blood Pressure 142/67 155/77 (mmHg) O2 Sat by Pulse 96 97 96 Oximetry 04/12/19 04/12/19 04/12/19 23:15 23:25 23:30 Temperature 99.0 F Pulse Rate 71 67 Respiratory 14 14 Rate Blood Pressure 141/69 156/67 (mmHg) O2 Sat by Pulse 96 96 Oximetry 04/12/19 04/13/19 04/13/19 23:45 00:00 00:15 Temperature Pulse Rate 67 64 66 Respiratory 16 14 15 Rate Blood Pressure 157/72 148/71 147/67 (mmHg) O2 Sat by Pulse 97 96 96 Oximetry 04/13/19 04/13/19 04/13/19 00:17 00:30 00:45 Temperature Pulse Rate 66 67 67 Respiratory 14 18 13 Rate Blood Pressure 125/61 129/70 (mmHg) O2 Sat by Pulse 95 95 94 Oximetry 04/13/19 04/13/19 04/13/19 01:00 01:01 01:15 Temperature Pulse Rate 62 62 65 Respiratory 12 11 12 Rate Blood Pressure 89/55 77/56 (mmHg) O2 Sat by Pulse 95 95 94 Oximetry 04/13/19 04/13/19 04/13/19 01:16 01:30 01:45 Temperature Pulse Rate 66 64 64 Respiratory 13 11 17 Rate Blood Pressure 101/59 106/54 119/56 (mmHg) O2 Sat by Pulse 95 95 94 Oximetry 04/13/19 04/13/19 04/13/19 02:00 02:01 02:15 Temperature Pulse Rate 63 64 66 Respiratory 13 11 10 Rate Blood Pressure 96/55 128/66 (mmHg) O2 Sat by Pulse 95 95 95 Oximetry 04/13/19 04/13/19 04/13/19 02:31 02:45 03:00 Temperature Pulse Rate 66 64 53 Respiratory 11 16 9 Rate Blood Pressure 139/69 124/58 94/69 (mmHg) O2 Sat by Pulse 94 94 95 Oximetry 04/13/19 04/13/19 04/13/19 03:16 03:30 03:31 Temperature 98.8 F Pulse Rate 57 64 Respiratory 17 11 Rate Blood Pressure 131/59 145/57 (mmHg) O2 Sat by Pulse 95 96 Oximetry 04/13/19 04/13/19 04/13/19 03:45 04:00 04:01 Temperature Pulse Rate 58 53 54 Respiratory 17 12 12 Rate Blood Pressure 136/80 138/58 (mmHg) O2 Sat by Pulse 96 96 96 Oximetry 04/13/19 04/13/19 04/13/19 04:15 04:30 04:45 Temperature Pulse Rate 55 54 54 Respiratory 11 12 9 Rate Blood Pressure 121/52 120/53 128/47 (mmHg) O2 Sat by Pulse 96 96 96 Oximetry 04/13/19 04/13/19 04/13/19 05:00 05:01 05:15 Temperature Pulse Rate 58 58 56 Respiratory 11 11 10 Rate Blood Pressure 144/55 141/56 (mmHg) O2 Sat by Pulse 96 96 96 Oximetry 04/13/19 04/13/19 04/13/19 05:30 05:45 06:00 Temperature Pulse Rate 55 59 58 Respiratory 13 11 14 Rate Blood Pressure 153/55 137/49 143/61 (mmHg) O2 Sat by Pulse 97 97 96 Oximetry 04/13/19 04/13/19 04/13/19 06:15 06:30 06:45 Temperature Pulse Rate 55 56 57 Respiratory 14 10 13 Rate Blood Pressure 140/59 134/59 149/61 (mmHg) O2 Sat by Pulse 96 96 96 Oximetry 04/13/19 04/13/19 04/13/19 07:00 07:15 07:30 Temperature Pulse Rate 55 55 61 Respiratory 13 10 16 Rate Blood Pressure 133/64 140/58 149/61 (mmHg) O2 Sat by Pulse 95 96 95 Oximetry 04/13/19 04/13/19 04/13/19 07:45 08:00 08:15 Temperature Pulse Rate 67 63 65 Respiratory 19 15 12 Rate Blood Pressure 155/62 154/68 160/71 (mmHg) O2 Sat by Pulse 94 95 95 Oximetry 04/13/19 04/13/19 04/13/19 08:18 08:30 08:45 Temperature 99.0 F Pulse Rate 58 55 Respiratory 12 10 Rate Blood Pressure 173/73 138/69 (mmHg) O2 Sat by Pulse 95 97 Oximetry 04/13/19 04/13/19 04/13/19 09:00 09:15 09:31 Temperature Pulse Rate 55 64 60 Respiratory 14 17 19 Rate Blood Pressure 153/61 162/77 148/83 (mmHg) O2 Sat by Pulse 96 96 96 Oximetry 04/13/19 04/13/19 04/13/19 09:45 09:59 10:00 Temperature Pulse Rate 58 56 Respiratory 17 11 11 Rate Blood Pressure 150/75 (mmHg) O2 Sat by Pulse 96 95 Oximetry 04/13/19 04/13/19 04/13/19 10:15 10:30 10:45 Temperature Pulse Rate 55 53 53 Respiratory 10 11 11 Rate Blood Pressure 144/67 143/64 138/64 (mmHg) O2 Sat by Pulse 95 95 96 Oximetry 04/13/19 04/13/19 04/13/19 11:00 11:01 11:30 Temperature Pulse Rate 52 52 53 Respiratory 13 5 13 Rate Blood Pressure 130/65 148/69 (mmHg) O2 Sat by Pulse 97 98 95 Oximetry 04/13/19 04/13/19 04/13/19 12:00 12:01 12:23 Temperature 98.3 F Pulse Rate 53 53 Respiratory 10 13 Rate Blood Pressure 126/60 (mmHg) O2 Sat by Pulse 95 95 Oximetry 04/13/19 04/13/19 04/13/19 12:30 13:00 13:01 Temperature Pulse Rate 53 59 60 Respiratory 7 18 14 Rate Blood Pressure 151/61 151/66 (mmHg) O2 Sat by Pulse 97 98 97 Oximetry Oxygen Devices in Use Now: None, Nasal Cannula Appearance: older gentleman, seated on bed, eating lunch, NAD Eyes: No Scleral Icterus, PERRLA Ears/Nose/Mouth/Throat: Mucous Membranes Moist Neck: NL Appearance and Movements; NL JVP, Trachea Midline Respiratory: Symmetrical Chest Expansion and Respiratory Effort, Clear to Auscultation Cardiovascular: NL Sounds; No Murmurs; No JVD, RRR Abdominal: NL Sounds; No Tenderness; No Distention Extremities: No Clubbing, Cyanosis Skin: No Rash or Ulcers - lipoma back incidentally noted., - Neurological: Alert and Oriented x 3 Lines/Tubes/Other Access: Clean, Dry and Intact Peripheral IV Laboratory Results: 04/13/19 06:00 04/13/19 06:00 INR (Anticoag Therapy) 1.03 (0.82-1.09) 04/08/19 14:13 Total Bilirubin 0.20 mg/dL (0.2-1.0) 04/10/19 04:20 Direct Bilirubin 0.00 mg/dL (0.03-0.18) L 04/10/19 04:20 Indirect Bilirubin Relay Record Clerk 04/10/19 04:20 AST 110 U/L (13-39) H 04/10/19 04:20 ALT 18 U/L (7-52) 04/10/19 04:20 Alkaline Phosphatase 45 U/L (34-104) 04/10/19 04:20 CK-MB (CK-2) 21.0 ng/mL (0.6-6.3) H 04/09/19 12:32 Total Protein 4.4 g/dL (6.4-8.9) L 04/10/19 04:20 Albumin 2.9 g/dL (3.2-5.2) L 04/10/19 04:20 Globulin 1.5 g/dL (2-4) L 04/10/19 04:20 Albumin/Globulin Ratio 1.9 (1-3) 04/10/19 04:20 Triglycerides 240 mg/dL 04/10/19 04:20 Cholesterol 119 mg/dL 04/10/19 04:20 LDL Cholesterol 51 mg/dL 04/10/19 04:20 HDL Cholesterol 19.7 mg/dL 04/10/19 04:20 TSH 3.66 mcIU/mL (0.34-5.60) 04/12/19 09:15 04/09/19 04/09/19 04/09/19 05:25 12:32 15:27 Troponin I 2.31 H* 4.54 H* 2.68 H* 04/09/19 04/10/19 04/10/19 22:10 04:20 10:23 Troponin I 25.78 H* 38.14 H* 30.16 H* 04/10/19 04/13/19 21:45 11:12 Troponin I 14.19 H* 4.96 H* Diagnostic Imaging: CXR: hyperinflation *[facility]* Transthoracic Echocardiogram Patient: Cristopher Rosado *Reading Physician: * Judy Velasco MD Summary: - Procedure narrative: Image quality was fair. - Left ventricle: Wall thickness is mildly increased. The estimated ejection fraction is 40-45%. Severe hypokinesis of the basalinferolateral, inferior, and inferoseptal myocardium. Features are consistent with a pseudonormal left ventricular filling pattern, with concomitant abnormal relaxation and increased filling pressure (grade 2 diastolic dysfunction). - Right ventricle: Systolic function is normal. - Mitral valve: There is mild to moderate regurgitation. EKG Data: 04/10/19 : ST depression precordial leads and inverted T waves V1-V4 new c/w admission. ST elevation inferior leads and inferior Q's - chronic. 04/13/19 ECG SR 53 bpm, mild T wave inversion V3-V6, much improved. Assessment/Plan 73 yo vasculopath admitted with active GI bleed and angina with NQMI in the setting of significant anemia. GI bleeding stabilized for now. CP resolved, ECG improving and trop's decreasing. PMHX: CAD/CABG 2000, DM, PVD, myelodysplasia, AVM, h/o lower GI bleeding, HLD, COPD. CAD: -Continue beta marck, pulse of 50''s 60's good. -On Norvasc and Imdur -Lipids: ldl 51, TG's 240. Diet may improve TG's, not a candidate for fish oil now with active bleeding, but consider Vascepa in the future if [facility] covers. -Smoking cessation discussed with patient and . Dr Bernard brought up redo CABG to revasularize. I don't think he could be done on bypass due to increased risk of bleeding. I discussed with interventional cardiology, if culprit is still graft to right, then possible BMS candidate, would only need Plavix/antiplatelet agents for a few weeks. 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 HTN: -Higher than ideal, this could impact GI bleeding (and is a CAD risk). -Recommend increasing Cozaar. CM: -Will update echo Sunday, tomorrow, for post WA EF. -Option of converting metoprolol back to Coreg, but would still aim for HR 60 's. GI BLEED -s/p cautery and PRBC , H/H improved. -I reviewed GI notes.
[2019-04-13] MEDS: Topiramate TAB(*) 25 MG PO SCH (21:14)
[2019-04-13] MEDS: oxyCODONE/Acetamin 5/325 MG* TAB PO PRN (21:15)
[2019-04-13] MEDS: Sertraline* 50 MG TAB PO SCH (21:16)
[2019-04-14] MEDS: Sodium Chloride FLUSH* 10 ML SYRINGE IV FLUSH SCH ×3 (00:31→08:34)
[2019-04-14 05:55] LABS: ABS Basophils 0.1 10^3/ul (0-0.2); ABS Eosinophils 0.3 10^3/ul (0-0.6); ABS Lymphocytes 1.4 10^3/ul (1.0-4.8); ABS Monocytes 0.7 10^3/ul (0-0.8); ABS Neutrophils 5.6 10^3/ul (1.5-7.7); Eosinophil % 3.2 %; Hematocrit 32 % (42-52); Mean Corpuscular HGB Conc 34 g/dL (31-36); Mean Corpuscular Hemoglobin 29 pg (27-31); Mean Corpuscular Volume 83 fL (80-94); Mean Platelet Volume 7.5 fL (7.4-10.4); Platelet Count 192 10^3/uL (150-450); Red Blood Count 3.86 10^6 /uL (4.18-5.48); Red Cell Distribution Width 19 % (10-15)
[2019-04-14 06:11] LABS: Albumin 2.9 g/dL (3.2-5.2); Albumin/Globulin Ratio 1.7 (1-3); BUN/Creatinine Ratio 10.4 (8-20); Calcium 7.9 mg/dL (8.6-10.3); EGFR African American 62.7 (>60); EGFR Non-African American 51.8 (>60); Globulin 1.7 g/dL (2-4); Magnesium 1.7 mg/dL (1.9-2.7); Potassium 4.2 mmol/L (3.5-5.0); Total Bilirubin 0.1 mg/dL (0.2-1.0); Total Protein 4.6 g/dL (6.4-8.9)
[2019-04-14 08:05] VITALS: BP 159/72
[2019-04-14] MEDS: Metoprolol Tartrate TAB* 25 MG PO SCH (08:32)
[2019-04-14] MEDS: amLODIPine TAB* 5 MG PO SCH (08:33)
[2019-04-14] MEDS: Losartan TAB* 25 MG PO SCH (08:33)
[2019-04-14] MEDS: Isosorbide Mononitrate ER TAB* 60 MG PO SCH (08:33)
[2019-04-14] MEDS: Pantoprazole TAB * 40 MG TAB PO SCH (08:34)
[2019-04-14] MEDS: Potassium Chlor TAB* 20 MEQ TAB.ER PO SCH (08:34)
[2019-04-14] MEDS: Insulin LISPRO* 1 UNITS UNIT SUBCUT SCH ×2 (08:34→13:40)
[2019-04-14] MEDS ORDERED: Magnesium Sulfate 2 GM IV* 2 GM/50 ML BAG IVPB ONE (09:24)
--- NOTE | 2019-04-14 09:55 | DS ---
- Discharge Summary Admission Date: 04/08/19 Discharge Date: 04/14/19 Discharge Diagnosis: 1. Acute GI Bleed: secondary to AVMs s/p cauterization via endoscopy on 04/11/19 2. NSTEMI: with wall motion abnormality, no further chest pain, repeat echo today 3. CAD: question of partially blocked stent, not felt to be a candidate for further intervention, recurrent bleeds limit use of anti-coagulation 4. MDS with refractory anemia: IV iron started inpt., will follow labs as outpatient, goal to maintain hmg >/=9 d/t severe cardiac disease Discharge Medications: Medication Instructions Recorded Confirmed Type Cholecalciferol TAB* [Vitamin D 1,000 unit PO QAM 02/08/15 04/08/19 History TAB*] Cyanocobalamin TAB* [Vitamin B12 1 tab PO DAILY 02/08/15 04/08/19 History TAB*] Insulin Aspart [Novolog Flexpen] 10 unit SC TID 02/08/15 04/08/19 History Multivitamins/Minerals TAB* [Thera 1 tab PO DAILY 02/08/15 04/08/19 History M Plus TAB*] Topiramate TAB(*) [Topamax 25 MG 150 mg PO BEDTIME 02/08/15 04/08/19 History tab] Folic Acid TAB* [Folvite TAB*] 1 mg PO DAILY 10/04/17 04/08/19 History Isosorbide Mononitrate [Isosorbide 120 mg PO QAM 03/29/19 04/08/19 History Mononitrate ER] Nitroglycerin TAB 0.4 MG* 0.4 mg SL Q5M PRN 03/29/19 04/08/19 History Rabeprazole Sodium 20 mg PO BID 03/29/19 04/08/19 History Insulin GLARGINE(*) [Lantus(*)] 20 units SUBCUT BEDTIME 04/08/19 04/08/19 History Losartan TAB* [Cozaar TAB*] 50 mg PO QPM 04/08/19 04/08/19 History Ondansetron TAB* [Zofran 4 MG Tab*] 4 mg PO Q12HR PRN 04/08/19 04/08/19 History Polyethylene Glycol 3350* 17 gm PO DAILY PRN 04/08/19 04/08/19 History [Miralax*] Ranitidine TAB (NF) [Zantac TAB 300 mg PO DAILY 04/08/19 04/08/19 History (NF)] Sertraline* [Zoloft*] 150 mg PO BEDTIME 04/08/19 04/08/19 History Simethicone TAB* [Mylicon TAB*] 80 mg PO ACHS PRN 04/08/19 04/08/19 History oxyCODONE/Acetamin 5/325 MG* 1 tab PO Q8H PRN 04/08/19 04/08/19 History [Percocet 5/325 TAB*] Magnesium Oxide TAB* [MagOx 400 400 mg PO DAILY #30 tab 04/14/19 Rx TAB*] Metoprolol Tartrate TAB* 25 mg PO BID #60 tab 04/14/19 Rx [Lopressor TAB*] Potassium Chlor TAB* [Potassium 20 meq PO DAILY #30 tab.er 04/14/19 Rx Chlor TAB 20 MEQ*] Sennosides/Docusate Sodium 2 each PO QAM PRN #0 04/14/19 04/08/19 Rx [Docusate Sodium-Sennosides Tab] amLODIPine TAB* [Norvasc 5 mg TAB*] 10 mg PO DAILY #60 tab 04/14/19 Rx Condition: Stable Disposition: Home Activity: low impact activity as tolerated Diet: low cholesterol, heart healthy diet Hospital Course: Please see admission note for full H&P, however briefly, Mr. 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 He presented to the ER via EMS on 04/08/19 with bright red blood per rectum and was admitted for blood transfusion, fluids, and possible endoscopy. Unfortunately overnight he developed chest pain with a subsequent elevation in his troponin and he was transferred to the ER for management of NSTEMI on 04/09/19. Dr. Velasco of cardiology was consulted and he was started on a pure beta-marck (metoprolol to replace coreg) and nitro gtt. An echo revealed an EF of 40% with focal wall abnormalities. He was not felt to be a candidate for intervention due to his prior stent placement. Mr. Rosado's troponin peaked @ 38.14 on 11/08 @ 0420. By 04/11/19 he was deemed stable for EGD at which time he had cauterization of small bowel AVMs. On 04/12 a doppler of the LUE was performed due to swelling, this was negative a DVT. By 04/13 Mr. Rosado was off the nitro gtt. and had improvement in his EKG with less pronounced ST depression. He was transferred out of the ICU to the Medical Telemetry floor that afternoon. Today Mr. Rosado feels well. He has not complaints of chest pain and his hmg. is stable @ 11. He has received a total of 5 units PRBCs during his admission. He had an echo this AM (currently pending) and will follow-up with his [facility], Dr. Palomares, on 04/17/19. He has been referred to the [facility] team for possible push endoscopy and this will be coordinated by his primary, Dr. Ochoa (spoke with Jami at his office who will contact our office should we be able to assist further). Mr. Rosado will have repeat labs on 04/16 to reassess hmg as underlying MDS may complicate his anemia, at this time we will repeat a CMP and iron studies as well. He has a mild increase in his Cr today, however no obvious symptoms and therefore reasonable to monitor as outpatient following his acute illness. He has received 3 of 5 planned Ferric fluconates and we will repeat iron studies as mentioned previously. Moving forward he will have outpatient labs qM and to monitor his counts. Plan of care was reviewed at length with Mr. Rosado face to face, and with his , Heike, over the phone. All questions answered. Follow-up: Plan CBC twice weekly: labs @ [facility] Wed. 04/16 @ 0840 then qMon & . moving forward Primary f/u: Dr. Ochoa @ [facility] as needed, they will assist with referral to GI GI @ [facility] for push endoscopy: pending referral by primary team, discussed with Jami @ Dr. Ochoa's office ([phone]) Cardiology: f/u @ [facility] on 04/17/19
--- NOTE | 2019-04-14 09:59 | ECHO ---
*[facility]* [place] [address] Fax #: [phone] Transthoracic Echocardiogram Patient: Cristopher Rosado : 1945 Study Date: 04/14/2019 Age: 73 Gender: M HR: 64 bpm Height: 71 in /180.3 cm BSA: 2.19 m^2 Weight: 207.6 lb /94.3 kg BMI: 29 kg/m^2 *Behavioral Health Director: * Lisa Christopher [facility] *Referring Physician: * Judy Velasco MD *Reading Physician: * Ander Rodriguez MD Indications: Chest Pain, unspecified. Myocardial Infarction. History: Coronary artery disease. PMH: Myocardial infarction. Risk factors: Current tobacco use. Diabetes mellitus. Labs, prior tests, procedures, and surgery: Coronary artery bypass grafting. Conclusions Summary: - Left ventricle: Systolic function is mildly reduced. The estimated ejection fraction is 45-50%. - Regional wall motion abnormality: Hypokinesis of the basal inferolateral myocardium; moderate hypokinesis of the basal inferior myocardium; mild hypokinesis of the mid inferior and mid inferolateral myocardium. - Right ventricle: Systolic function is normal. - Mitral valve: There is mild regurgitation. - Aortic valve: There is no evidence of stenosis. - Tricuspid valve: There is no significant regurgitation. - Pericardium, extracardiac: There is no significant pericardial effusion. - Pulmonary arteries: Systolic pressure can not be accurately estimated. - Compared to study of 04/09/19, there is little change. Study data: Transthoracic echocardiogram. Procedure: Transthoracic echocardiography was performed. Image quality was good. Complete 2D, spectral Doppler, and color flow Doppler. Location: Bedside. Patient status: Inpatient. Patient room number: 431. Rhythm: Normal sinus rhythm. Findings Left ventricle: The cavity size is normal. Wall thickness is mildly increased. Systolic function is mildly reduced. The estimated ejection fraction is 45-50%. Regional wall motion abnormalities: Hypokinesis of the basal inferolateral myocardium; moderate hypokinesis of the basal inferior myocardium; mild hypokinesis of the mid inferior and mid inferolateral myocardium. Features are consistent with a pseudonormal left ventricular filling pattern, with concomitant abnormal relaxation and increased filling pressure (grade 2 diastolic dysfunction). Right ventricle: The cavity size is normal. Systolic function is normal. Left atrium: The atrium is normal in size. Right atrium: The atrium is normal in size. Mitral valve: The leaflets are mildly thickened. There is no evidence of stenosis. There is mild regurgitation. Aortic valve: The valve is trileaflet. The leaflets are mildly thickened. There is no evidence of stenosis. There is no significant regurgitation. Tricuspid valve: The leaflets are normal thickness. There is no evidence of stenosis. There is no significant regurgitation. Pulmonic valve: The leaflets are normal thickness. There is no evidence of stenosis. There is mild regurgitation. Aorta: The aortic root appears normal. The aortic arch appears normal. Pericardium: There is no significant pericardial effusion. Pulmonary arteries: The main pulmonary artery is normal-sized. Systolic pressure can not be accurately estimated. Systemic veins: Inferior vena cava: The vessel is dilated. Measurements Left ventricle Value Ref Right atrium continued Value Ref YISSEL, LAX 4.8 cm 4.2 - 5.8 ML dim, ES, A4C 3.5 cm 2.6 - 4.4 ESD, LAX (H) 4.1 cm 2.5 - 4.0 Estimated RAP 8 mm Hg --------- FS, LAX (L) 15 % 25 - 43 PW, ED, LAX (H) 1.3 cm 0.6 - 1.0 Aortic valve Value Ref EF (L) 32 % 52 - 72 Zuly diam, ED 2.3 cm --------- E', lat zuly, TDI (L) 7.0 cm/sec >=10.0 VTI, S 36.4 cm -- ------- E/e', lat zuly, 15 Mean grad, S 5.4 mm Hg ----- ---- TDI Peak grad, S 11.3 mm Hg --------- E', med zuly, TDI 7.0 cm/sec >=7.0 LVOT/AV, VTI ratio 0.81 -- ------- E/e', med zuly, 15 TDI Mitral valve Value Ref E', avg, TDI 7.0 cm/sec Peak E 1.05 m/sec ----- ---- E/e', avg, TDI (H) 15 <=14 Peak A 0.78 m/sec -- ------- Decel time 222 ms --------- LVOT Value Ref Peak grad, D 4.4 mm Hg --------- Peak marvin, S 1.34 m/sec Peak E/A ratio 1.35 --------- VTI, S 29.6 cm Peak grad, S 7 mm Hg Pulmonic valve Value Ref Mean grad, S 4 mm Hg Peak v, S 1.1 m/sec --------- Peak grad, S 5.0 mm Hg --------- Ventricular septum Value Ref IVS, ED (H) 1.3 cm 0.6 - 1.0 Aortic root Value Ref Root diam 2.7 cm <4.3 Right ventricle Value Ref YISSEL, LAX 3.1 cm Ascending aorta Value Ref YISSEL major ax, (L) 2.5 cm 5.9 - 8.3 AAo AP diam, S 2.8 cm --------- A4C Aortic arch Value Ref Left atrium Value Ref Arch diam 2.8 cm --------- AP dim, ES (H) 4.60 cm 3.00 - 4.00 Inferior vena cava Value Ref ML dim, A4C 5.0 cm Diam 2.3 cm --------- SI dim, A4C 5.7 cm Vol/bsa, ES, 2-p 33 ml/m^2 16 - 34 Right atrium Value Ref SI dim, ES 4.6 cm 3.4 - 5.3 Legend: (L) and (H) ruben values outside specified reference range. Prepared and electronically signed by Ander Rodriguez MD 04/14/2019 09:59
[2019-04-14] MEDS ORDERED: Magnesium Oxide TAB* 400 MG PO SCH (10:00)
[2019-04-14] MEDS: Ferric Gluconate IV* 125 MG in NS 0.9% 100 ML* 100 ML IVPB SCH (10:24)
[2019-04-14 13:14] LABS: Phosphorus 3.1 mg/dL (2.5-5.0)
== END 2019-04-14 15:30 | disposition home or self-care (01) | DRG 377 ==
LOC: ED 13:35 → MED 18:05 → MEDTELE 04-09 13:18 → ICU 04-09 17:24 → MEDTELE 04-13 14:01
PROVIDERS: ADMIT Internal Medicine; ATTEND Internal Medicine Hematology & Oncology
PROC: 30233N1 Transfusion of Nonautologous Red Blood Cells into Peripheral Vein, Percutaneous Approach (ICD-10-PCS; 2019-04-08)
PROC: 0DJ08ZZ Inspection of Upper Intestinal Tract, Via Natural or Artificial Opening Endoscopic (ICD-10-PCS; principal; 2019-04-11)
PROC: 0W3P8ZZ Control Bleeding in Gastrointestinal Tract, Via Natural or Artificial Opening Endoscopic (ICD-10-PCS; 2019-04-11)
DX: K55.21 Angiodysplasia of colon with hemorrhage (principal); I21.4 Non-ST elevation (NSTEMI) myocardial infarction; K57.32 Diverticulitis of large intestine without perforation or abscess without bleeding; E87.2 Acidosis; N17.9 Acute kidney failure, unspecified; D62 Acute posthemorrhagic anemia; I25.10 Atherosclerotic heart disease of native coronary artery without angina pectoris; D46.4 Refractory anemia, unspecified; Z79.4 Long term (current) use of insulin; I25.2 Old myocardial infarction; Z95.820 Peripheral vascular angioplasty status with implants and grafts; Z88.8 Allergy status to other drugs, medicaments and biological substances; Z83.3 Family history of diabetes mellitus; Z80.0 Family history of malignant neoplasm of digestive organs; Z80.1 Family history of malignant neoplasm of trachea, bronchus and lung; Z80.3 Family history of malignant neoplasm of breast; Z82.0 Family history of epilepsy and other diseases of the nervous system; F17.210 Nicotine dependence, cigarettes, uncomplicated; K21.9 Gastro-esophageal reflux disease without esophagitis; E11.22 Type 2 diabetes mellitus with diabetic chronic kidney disease; N18.9 Chronic kidney disease, unspecified; E78.00 Pure hypercholesterolemia, unspecified; I12.9 Hypertensive chronic kidney disease with stage 1 through stage 4 chronic kidney disease, or unspecified chronic kidney disease; E11.51 Type 2 diabetes mellitus with diabetic peripheral angiopathy without gangrene; J44.9 Chronic obstructive pulmonary disease, unspecified; Z95.1 Presence of aortocoronary bypass graft; K44.9 Diaphragmatic hernia without obstruction or gangrene; K63.5 Polyp of colon; R23.3 Spontaneous ecchymoses; D46.9 Myelodysplastic syndrome, unspecified
CPT/HCPCS: 36415; 71046; 80048; 80053; 80061; 80076; 82270; 82553; 83735; 84100; 84443; 84484; 85014; 85018; 85025; 85027; 85610; 86850; 86900; 86901; 86922; 93005; 93306; 99156; 99157; 99232; 99233; 99239; 99284; A9270-GY; C8929; J1642; J1940; J2250; J2270; J2916; J3010; J3475; J3480; J3490; P9040

== ENCOUNTER 2021-12-20 20:56 | Inpatient (IN) ==
[2021-12-20 21:30] LABS: ABS Basophils 0.1 10^3/ul (0-0.2); ABS Eosinophils 0.1 10^3/ul (0-0.6); ABS Lymphocytes 2.1 10^3/ul (1.0-4.8); ABS Monocytes 0.2 10^3/ul (0-0.8); ABS Neutrophils 10.6 10^3/ul (1.5-7.7); Eosinophil % 0.9 %; Hematocrit 30 % (42-52); Hemoglobin 9.5 g/dL (14.0-18.0); Lymphocyte % 16.1 %; Mean Corpuscular HGB Conc 32 g/dL (31-36); Mean Corpuscular Hemoglobin 29 pg (27-31); Mean Corpuscular Volume 89 fL (80-94); Mean Platelet Volume 8.8 fL (7.4-10.4); Platelet Count 280 10^3/uL (150-450); Red Blood Count 3.31 10^6 /uL (4.18-5.48); Red Cell Distribution Width 16 % (10-15); White Blood Count 13.2 10^3/uL (3.5-10.8)
[2021-12-20 21:34] LABS: INR 1.11 (0.86-1.15)
[2021-12-20 21:44] LABS: Venous Bicarbonate HCO3 11.3 mmol/L (24-28)
[2021-12-20 21:45] LABS: Albumin 4.1 g/dL (3.2-5.2); Albumin/Globulin Ratio 1.4 (1-3); Potassium 4.3 mmol/L (3.5-5.0); Total Bilirubin 0.4 mg/dL (0.2-1.0); Total Protein 7.1 g/dL (6.4-8.9)
[2021-12-20 22:11] LABS: PCO2 Arterial 34 mmHg (35-45); PO2 Arterial 140 mmHg (80-100)
[2021-12-20] MEDS ORDERED: Nitro 2% OINT (Nitroglycerin) 1 INCH/PAK TOPICAL ONE (22:17)
[2021-12-20 22:40] LABS: High Sensitivity Troponin 1 Hr 780 pg/mL (<20)
[2021-12-20] MEDS ORDERED: Rocuronium 50 mg VIAL 10 mg/ml 5 ml VIAL (50 mg) ONE (22:46)
[2021-12-20] MEDS ORDERED: Succinylcholine 200 mg VIAL 20 mg/ml 10 ml VIAL (200 mg) ONE (22:46)
[2021-12-20] MEDS ORDERED: Morphine 2 MG/ML SYRINGE IV PRN (23:56)
[2021-12-20] MEDS ORDERED: Furosemide 40 mg/4 ml IV VIAL IV SLOW PU ONE (23:56)
[2021-12-21] MEDS ORDERED: Dextrose 50% Syringe 50 ml 25 GM/50 ML SYRINGE IV PUSH PRN
[2021-12-21] MEDS ORDERED: Piperacillin/Tazobac ADVAN 3.375 GM in NS 0.9% 100 ml BAG 100 ML IV ONE (00:02)
[2021-12-21 00:56] LABS: High Sensitivity Troponin 3 Hr 10468 pg/mL (<20)
[2021-12-21] MEDS ORDERED: Zosyn per Pharmacy NOTE FOLLOW UP SCH (01:00)
[2021-12-21] MEDS ORDERED: Heparin DRIP 25,000 UNITS BAG 25,000 UNITS/500 ML BAG IV SCH (01:00)
[2021-12-21] MEDS ORDERED: Heparin 5000 UNITS/ML 1 mL VIAL IV SCH (01:00)
[2021-12-21 01:31] LABS: Urine Appearance Cloudy; Urine Bilirubin Negative (Negative); Urine Blood 2+ (Negative); Urine Color Yellow; Urine Glucose 1+(50 mg/dL) (Negative); Urine Ketones Negative (Negative); Urine Nitrite Negative (Negative); Urine Protein 3+(>=500 mg/dL) (Negative); Urine Urobilinogen Negative (Negative)
[2021-12-21] MEDS ORDERED: Ondansetron 4 mg VIAL 2 MG/ML 2 ml VIAL IV PRN (01:32)
[2021-12-21] MEDS ORDERED: Ondansetron 4 mg VIAL 2 MG/ML 2 ml VIAL ONE (01:34)
[2021-12-21 01:43] LABS: Urine Bacteria Absent (Absent); Urine Red Blood Cell Trace(0-2/hpf) (Absent); Urine White Blood Cell Trace(0-5/hpf) (Absent)
[2021-12-21] MEDS ORDERED: Lorazepam PYXIS KEY PRN (02:14)
[2021-12-21] MEDS ORDERED: Prochlorperazine 5 mg/ml 2 ml VIAL (10 mg) IV PRN (02:51)
[2021-12-21] MEDS ORDERED: LORazepam 2 mg VIAL 1 ml IV PUSH SCH (03:00)
[2021-12-21] MEDS: LORazepam 2 mg VIAL 1 ml IV PUSH PRN ×10 (04:13→23:32)
[2021-12-21] MEDS ORDERED: ZOSYN 3.375 GM Q8H per EXTENDED INFUSION IV SCH (05:00)
[2021-12-21] MEDS ORDERED: Atropine 1% (ORAL/SL) 15 ML BTL SL PRN (09:38)
[2021-12-21] MEDS ORDERED: Acetaminophen IV 1 GM/100ML 100 ML IV PRN (12:14)
[2021-12-21 12:53] VITALS: BP 145/89
[2021-12-21] MEDS ORDERED: Morphine 4 MG/ML VIAL (1 ml) ONE (13:32)
[2021-12-21] MEDS: Glycopyrrolate IV 0.2 MG/ML 1 ML VIAL IV SLOW PU SCH ×2 (16:16→20:30)
[2021-12-22] MEDS: LORazepam 2 mg VIAL 1 ml IV PUSH PRN (00:42)
== END 2021-12-22 01:22 | disposition expired | DRG 190 ==
LOC: ED 20:56 → ICU 23:57
PROVIDERS: ADMIT Internal Medicine Critical Care Medicine; ATTEND Internal Medicine Critical Care Medicine